=== PATIENT | male | born 1960 | race Caucasian/White ===

== ENCOUNTER → 2017-10-21 00:33 | Outpatient (CLI) | payer BC, SELFPAY ==
--- NOTE | 2017-10-21 08:55 | DI.REPORT_ITS ---
SYMPTOM/DIAGNOSIS: FRACTURE MULTIPLE RIBS, RT S22.41XA PA CHEST, RIGHT RIBS: 10/21 PA chest and 2 views of the right ribs were obtained. There are again noted multiple right lateral rib fractures. No evidence of pneumothorax or significant pleural effusion on frontal view at this time. The heart is not enlarged. The lungs are clear.
== END ==
PROVIDERS: PCP Family Medicine; Visit Provider Family Medicine
DX: S22.41XA Multiple fractures of ribs, right side, initial encounter for closed fracture (principal)
CPT/HCPCS: 71046; 71100

== ENCOUNTER 2019-03-22 10:26 | Emergency (ER) | payer BC, SELFPAY ==
[2019-03-22] VITALS (24 sets, daily range): BP systolic 107–161; BP diastolic 70–92; PULSE 50–72; RESP 14–20; TEMP 36.7; O2SAT 94–97
--- NOTE | 2019-03-22 11:16 | ED.GENADUL_ITS ---
Discharge Plan Disposition Patient Disposition: HOME Condition: Stable Discharge Details Chief Complaint: SOB Clinical Impression: Atrial fibrillation Primary Care Provider: Yasmani Olivares ED Provider: Richie Woodard Home Meds and New Rx's Prescriptions: New apixaban 5 mg tablet 5 mg PO BID Qty: 60 RF: 0 No Action metoprolol succinate [Toprol XL] 50 MG tablet extended release 24 hr 50 mg PO DAILY RF: 0 sennosides [Senokot] 1 TAB tablet 1 tab PO DAILY PRNRF: 0 docusate sodium [Colace] 100 MG capsule 100 mg PO TID PRN PRNQty: 1 RF: 0 ibuprofen 600 MG tablet 600 mg PO Q6H Qty: 30 RF: 0 aspirin [Aspir-81] 81 mg Tablet,Delayed Release (Dr/Ec) 81 mg PO ONCE RF: 0 Discharge Instructions Instructions: Atrial Fibrillation (ED) Additional Instructions: 1. Drink plenty of fluids. 2. Continue all medications as prescribed. 3. Acetaminophen 1000mg every 4 hours (up to 5 time a day) and/or ibuprofen 600mg every 6 hours as needed for fever or pain. 4. Apixaban 5 mg twice a day. 5. Follow-up with your physician for outpatient monitoring. Return to the Emergency Department (ED) if your condition worsens, does not improve as expected, or for ANY other concerns. Specifically, return if you have new or uncontrolled pain, worsening fever, difficulty breathing, vomiting, or are unable to drink fluids. Referrals: [place]IOLOG[place],[facility] [place] - (Discussed case w Dr. Rosalina Oliver who recommended outpatient EP follow up [facility] for antiarrthymic strategy. ) Medical Decision Making 59 gentleman with a past medical history which includes recurrent atrial fibrillation maintained with metoprolol and no anticoagulants. Presented after being in persistent atrial fibrillation for the past 4 days. Spontaneously cardioverted on arrival with resolution of associated left facial tingling/pressure. However, while in the emergency department had resumption of atrial fibrillation. Remained rate controlled and stable with no associated constitutional complaints. Discussed case with EP doll surgeon from [facility], Dr. Oliver. Discharged with a plan for continued metoprolol, initiation of apixaban, a roll icer, and plan for outpatient follow-up at [facility] EP clinic. Discussed plan with patient and spouse. Discharged home with a prescription for apixaban and a plan for outpatient follow-up as discussed. Given usual and customary return instructions at time of discharge. Medical Records Medical records reviewed: Yes I reviewed the patient's medical records. ECG Data Attestation: I personally reviewed and interpreted this ECG (s) as follows: Prior ECG tracings: available for review Interpretation: EKG #1 sinus bradycardia, 50 bpm. EKG #2: Atrial fibrillation 60 bpm HPI 58-year-old gentleman with a past medical history which includes chronic recurrent atrial fibrillation. He has episodes of fever intermittently which lasts for no longer than 1 day. He insists that he is aware when he is in atrial fibrillation or not. Presents with persistent atrial fibrillation since Wednesday (4 days ago) onset was unprovoked and he has been aware of remaining in fibrillation. This morning he had an episode of rapid heart rate with associated left facial tingling/tightness. On arrival here, he is subjectively improved and, on my evaluation has spontaneously converted into NSR with almost immediate resolution of his atypical facial pressure/tingling. He otherwise denies a history of chest pain dyspnea, diaphoresis, presyncope, or any other focal extremity weakness. He does note that when he is in atrial fibrillation he is more limited in terms of his activity and feels more fatigued with exertion. His last cardiology evaluation was years ago and he is chronically on metoprolol for rate control. General Date/Time Provider Initiated Documentation: 03/22/19 10:57 . Related Data Home Medications Medication Instructions Recorded Confirmed metoprolol succinate [Toprol XL] 50 mg PO DAILY 08/28/17 03/22/19 sennosides [Senokot] 1 tab PO DAILY PRN 08/28/17 03/22/19 docusate sodium [Colace] 100 mg PO TID PRN PRN #1 bottle 08/30/17 03/22/19 ibuprofen 600 mg PO Q6H #30 tab 08/30/17 03/22/19 apixaban 5 mg PO BID #60 tab 03/22/19 aspirin [Aspir-81] 81 mg PO ONCE 03/22/19 03/22/19 Previous Rx's Medication Instructions Recorded docusate sodium [Colace] 100 mg PO TID PRN PRN #1 bottle 08/30/17 ibuprofen 600 mg PO Q6H #30 tab 08/30/17 apixaban 5 mg PO BID #60 tab 03/22/19 Allergies Allergy/AdvReac Type Severity Reaction Status Date / Time amoxicillin Allergy Unknown Unverified 03/22/19 10:36 Penicillins Allergy Unknown Unverified 03/22/19 10:36 General Stated Complaint: SOB ARIAN: 2 Review of Systems All systems reviewed & are unremarkable except as noted in HPI and below PFSH Social History Smoking/Tobacco Use Status: Current every day Alcohol Intake: current Alcohol Intake frequency: a few times a week Drug use: Never Substance use type: does not use Do you feel safe at home: Yes Do you feel safe in your relationship?: Yes Exam Narrative Exam Narrative: Nursing note and vital signs have been reviewed and noted. GENERAL: alert, active, no acute distress, well -hydrated, well-nourished HEENT: atraumatic/normocephalic, PERRLA, EOMI, conjunctiva clear, external ears/canals normal, nasal mucosa normal NECK: supple, full range of motion, no mass, normal lymphadenopathy, no thyromegaly CARDIOVASCULAR: RRR, no murmurs, nl pulses, no edema PULMONARY: nl effort, no audible wheezing or stridor, nl breath sounds with no focal deficit. no chest wall tenderness ABDOMEN: soft, non-tender, non-distended, no mass, no organomegaly EXTREMITY: normal muscle tone, all joints with FROM, no deformity or tenderness SKIN: no exanthem appreciated NEURO: gross motor exam normal, normal stance and gait PSYCH: alert and oriented, Course Vital Signs Vital signs: Vital Signs Temperature 98.1 F 03/22/19 10:32 Pulse 53 L 03/22/19 10:32 Respiratory Rate 19 03/22/19 10:32 Blood Pressure 153/80 H 03/22/19 10:32 Pulse Oximetry 97 03/22/19 10:32 Temperature 98.1 F 03/22/19 10:32 Temperature Source Temporal Artery Scan 03/22/19 10:32 Pulse 53 L 03/22/19 10:32 Respiratory Rate 19 03/22/19 10:40 Respiratory Effort Non-Labored 03/22/19 10:40 Respiratory Depth Normal 03/22/19 10:40 Respiratory Pattern Normal 03/22/19 10:40 Blood Pressure 153/80 H 03/22/19 10:32 Blood Pressure Position Supine 03/22/19 10:32 Pulse Oximetry 97 03/22/19 10:32 Oxygen Delivery Method Room Air 03/22/19 10:32 Oxygen Flow Rate 0 03/22/19 10:32 Pain Level 3 03/22/19 10:32
--- NOTE | 2019-03-22 17:52 | NUR.NOTE ---
Nursing Note: 1. Referral faxed to PCP for follow up to have a Zio Patch placed per [facility] [place]. 2. Referral (MD note, 2 ekg's) faxed to [facility] cardiology for follow up. Evelyne Lizarraga.
== END 2019-03-22 12:44 | disposition home or self-care (01) ==
PROVIDERS: Emergency Provider Emergency Medicine; PCP Family Medicine
DX: R06.02 Shortness of breath (principal); I48.20 Chronic atrial fibrillation, unspecified; R20.2 Paresthesia of skin
CPT/HCPCS: 36415; 93005; 99284; 93010

== ENCOUNTER 2019-04-26 02:31 | Outpatient (CLI) | payer BC, SELFPAY ==
--- NOTE | 2019-04-26 13:25 | DI.US_ITS ---
APPROVED REPORT EXAM: Comprehensive 2D, Doppler, and color-flow Echocardiogram Patient Location: Out-Patient Branch Sales Manager: Lisbeth Goss RDCS (AE) Rhythm: Bradycardia Indications: atrial fibrillation I48.91 Conclusion Normal left ventricular wall thickness and chamber size. Estimated ejection fraction is 60 to 65%. There are no segmental wall motion abnormalities The left atrium is mildly dilated. The right atrium is top normal in size Right ventricle is normal in size and systolic function. The aortic valve is trileaflet without stenosis or regurgitation Mildly thickened mitral leaflets with mild regurgitation The tricuspid valve is structurally normal. There is trace to mild tricuspid regurgitation The pulmonic valve is not well visualized Estimated right ventricular systolic pressure is 36 mmHg The ascending aorta is mildly dilated measuring 3.7 cm Wall motion Left Ventricle The left ventricle is normal size. The left ventricular systolic function is normal. The left ventric ular ejection fraction is within the normal range. There is normal left ventricular wall thickness. T here is normal LV segmental wall motion. The left ventricular diastolic function is normal. LVEF is e stimated to be 60-65%. Right Ventricle The right ventricle is normal size. The right ventricular systolic function is normal. Atria Left atrium is mildly dilated. The right atrium size is top normal. Aortic Valve The aortic valve is normal in structure. There is no aortic valvular stenosis. No aortic regurgitatio n is present. Mitral Valve Mitral valve leaflets are mildly thickened. Mild mitral regurgitation. Tricuspid Valve The tricuspid valve is normal in structure. Trace to mild tricuspid regurgitation. Pulmonic Valve Pulmonic valve is not well visualized. Great Vessels The aortic root is normal in size. The ascending aorta is mildly dilated. The IVC is dilated. The IVC collapses >50% with inspiration. Pericardium There is no pericardial effusion. 2D Dimensions IVSD d PLAX 1.13 cm M: 0.6-1.2 LV Vol A2C d MOD 76.6 mL LVPW d PLAX 0.98 cm M: 0.6 - 1.2 LV Vol A4C d MOD 122.8 mL LVID d PLAX 4.77 cm M: 4.2 - 5.8 LA vol/ BSA A2C s A-L 38.1 mL/m2 LVDs 2.90 cm M: 2.5 - 4.0 LA vol/ BSA A4C s A-L 36.1 mL/m2 Ao Root d 3.43 cm M: 3.1 - 3.7 LA Vol/ BSA Biplane s A-L 37.9 mL/m2 RVID Base (AP4) 4.23 cm (M/F) 2.5-4.1 LA Area A4C s MOD 20.79 cm2 RA Area A4C 19.20 cm2 LA Area A2C s MOD 21.82 cm2 RA Vol/ BSA A4C s A-L 31.3 mL/m2 LV EF A4C MOD 57.5 % Ao Asc Diam d 3.73 cm M: 2.6 - 3.4 LV EF A2C MOD 62.3 % LV EF Teichholz 69.4 % LV EF Biplane MOD 59.0 % LVEF (Rey's) 58.99 % M: 52 - 72 IVC Diam exp d SLAX 2.54 cm LV Volume 75.18 mL M: 62 - 150 LV Volume Index 39.36 mL/m2 M: 34 - 74 LV Vol Biplane MOD 98.8 mL FS 39.00 % M-Mode TAPSE 1.74 cm (M/F) <1.7 LV Diastology MV E' medial 0.075 (>0.07 m/s) E/A Ratio 1.5 LV E/e MED 12.35 (<14) PV S/D Ratio 1.08 MV E' lateral 0.114 (>0.1 m/s) MV E Vmax 0.93 (0.4-1.3 m/s) LV E/e LAT 8.15 (<14) MV A Vmax 0.60 (0.4-1.3 m/s) MV E/E' medial 12.37 MV E/A Ratio 1.43 MV E/E' lateral 8.18 Aortic Valve LVOT Area 3.94 cm2 AoV Area Vmax 3.01 cm2 LVOT Vmax 1.23 m/s AoV Area/ BSA (Vmax) 1.57 cm2/m2 LVOT Mean Stone. 0.91 m/s JAQUELINE Mean Stone. 3.29 cm2 LVOT Peak Grad 6.0 mmHg JAQUELINE Mean Stone. Index 1.72 cm2/m2 LVOT Mean Grad 3.6 mmHg LVOT VTI 0.293 m LVOT Diam s 2.20 cm (M/F) 1.5-2.5 AoV Vmax 1.61 (0.5-1.3 m/s) Velocity Ratio 0.76 AoV Mean Stone. 1.09 m/s AoV Peak Grad 10.3 mmHg LVOT SV 115.51 mL AoV Mean Grad 5.2 (<5 mmHg) AoV VTI 0.342 (0.18-0.25 m) AoV Area VTI 3.38 (2.5-4.5 cm2) AoV Area/ BSA (VTI) 1.76 cm/m2 Mitral Valve MV DT 214 (160-240 msec) MR Vmax 5.43 m/s MV PHT 62 msec MR VTI 2.128 m MV Area PHT 3.55 cm2 MR Peak Grad 117.8 mmHg MV VTI 0.211 m MR Mean Grad 87.7 mmHg MV VTI Annulus 0.211 m MV Regurg Vol 42.64 mL MV Diam AP 3.09 cm MV RF 26.96 % MV SV 158.16 mL MR VC 0.31 (0-0.3 cm) Pulm Vein s 0.45 m/s RUPV S Vmax 0.45 m/s Pulm Vein d 0.42 m/s RUPV D Vmax 0.42 m/s Pulm Vein a 0.20 m/s RUPV A Vmax 0.20 m/s Pulmonary Valve PV Vmax 0.93 (0.5-1.5 m/s) RVOT Peak Gr. 2.31 mmHg PV Peak Grad 3.5 mmHg RVOT Mean Gr. 1.45 mmHg PV Mean Grad 2.2 mmHg RVOT VTI 0.200 m PV VTI 0.198 m RVOT Vmax 0.76 m/s Tricuspid Valve TR Peak Grad 31.7 mmHg TR Vmax 2.82 m/s RA Pressure 8.00 mmHg RVSP (TR) 39.8 mmHg
== END 2019-04-26 02:51 ==
PROVIDERS: PCP Family Medicine; Visit Provider Internal Medicine Cardiovascular Disease
DX: I48.91 Unspecified atrial fibrillation (principal); I34.0 Nonrheumatic mitral (valve) insufficiency
CPT/HCPCS: 93306

== ENCOUNTER 2019-04-26 03:42 | Outpatient (CLI) | payer BC, SELFPAY | END 2019-04-26 04:02 | PROVIDERS: PCP Family Medicine; Visit Provider Internal Medicine Cardiovascular Disease | DX: I49.9 Cardiac arrhythmia, unspecified (principal) | CPT/HCPCS: 93005; 93010 ==

== ENCOUNTER 2020-01-10 10:50 | Outpatient (CLI) | payer BC, SELFPAY ==
--- NOTE | 2020-01-10 10:45 | RT.EKG_ITS ---
APPROVED REPORT Exam: Resting ECG Patient Location: O HR:71 bpm ECG Measurements Heart Rate 71 AXIS TX 150 P -15 QRSd 88 QRS 2 QT 396 T -19 QTc 432 Conclusion Sinus rhythm...normal P axis, V-rate 60- 99 Nonspecific T abnormalities, inferior leads...T <-0.10mV, II III aVF
== END 2020-01-10 11:10 ==
PROVIDERS: PCP Family Medicine; Visit Provider Internal Medicine Cardiovascular Disease
DX: I48.91 Unspecified atrial fibrillation (principal)
CPT/HCPCS: 93005; 93010

== ENCOUNTER 2020-04-19 09:35 | Outpatient (REF) | payer BC, SELFPAY ==
[2020-04-19 12:44] LABS: C Diff PCR Negative (Negative)
[2020-04-27 19:28] LABS: Lactoferrin, Qt, Stool <30.0 mcg/mL
== END 2020-04-19 09:36 | disposition home or self-care (01) ==
LOC: LBN 09:35
PROVIDERS: PCP Family Medicine; Visit Provider Internal Medicine Gastroenterology
DX: K52.9 Noninfective gastroenteritis and colitis, unspecified (principal); K92.2 Gastrointestinal hemorrhage, unspecified
CPT/HCPCS: 83631; 87493; 87324

== ENCOUNTER 2020-05-20 12:24 | Outpatient (REF) | payer BC, SELFPAY | END 2020-05-20 12:25 | disposition home or self-care (01) | LOC: LBN 12:24 | PROVIDERS: PCP Family Medicine; Referring Provider Internal Medicine Gastroenterology; Visit Provider Internal Medicine Gastroenterology | DX: K52.9 Noninfective gastroenteritis and colitis, unspecified (principal) | CPT/HCPCS: 87329; 87177 ==

== ENCOUNTER 2020-11-06 08:30 | Outpatient (CLI) | payer BC, SELFPAY ==
--- NOTE | 2020-11-06 08:30 | RT.EKG_ITS ---
APPROVED REPORT Exam: Resting ECG Reason for Exam: atrial fib Patient Location: O HR:66 bpm ECG Measurements Heart Rate 66 AXIS WA 125 P -1 QRSd 86 QRS 9 QT 408 T 4 QTc 428 Conclusion Sinus rhythm...normal P axis, V-rate 50- 99
== END 2020-11-06 08:31 | disposition home or self-care (01) ==
LOC: DI.CARD 08:34
PROVIDERS: PCP Family Medicine; Visit Provider Internal Medicine Cardiovascular Disease
DX: I48.91 Unspecified atrial fibrillation (principal)
CPT/HCPCS: 93010

== ENCOUNTER 2021-11-12 09:12 | Outpatient (CLI) | payer BC, SELFPAY ==
--- NOTE | 2021-11-12 09:00 | RT.EKG_ITS ---
APPROVED REPORT Exam: Resting ECG Reason for Exam: palpitations, history of atrial fibrillation Patient Location: O HR:66 bpm ECG Measurements Heart Rate 66 AXIS AL 123 P -3 QRSd 87 QRS 10 QT 410 T 4 QTc 430 Conclusion Sinus rhythm...normal P axis, V-rate 50- 99 Normal Electrocardiogram
== END 2021-11-12 09:13 | disposition home or self-care (01) ==
LOC: DI.CARD 09:14
PROVIDERS: PCP Family Medicine; Visit Provider Internal Medicine Cardiovascular Disease
DX: I48.91 Unspecified atrial fibrillation (principal); R00.2 Palpitations
CPT/HCPCS: 93010

== ENCOUNTER 2022-11-21 08:45 | Inpatient (IN) | payer BC, SELFPAY ==
[2022-11-21] VITALS (65 sets, daily range): BP systolic 131–158; BP diastolic 59–96; PULSE 55–74; RESP 12–30; TEMP 36.8–36.9; O2SAT 94–99
--- OUTSIDE RECORDS SUMMARY | 2022-11-21 08:51 | XMS_ITS | Continuity of Care Document ---
Author Name Unknown Organization [facility] Address [address] [place] [address] Care Team Providers Care Dermatology Nurse Practitioner Name Role Phone Nafisa Lopez Primary Care Physician Encounter [facility] Date(s): 08/06/22 - 08/06/[address] [phone] Encounter Diagnosis Hypertensive disorder(Discharge Diagnosis) - 08/06/22 Discharge Disposition: Home or Self Care Attending Physician: Nafisa Lopez MD Admitting Physician: Nafisa Lopez MD Referring Physician: Nafisa Lopez MD Allergies, Adverse Reactions, Alerts Substance Reaction Severity Status amoxicillin Unknown Active penicillins Rash Itching Unknown Active Dust 1 Sneezing Mild Active 1Redwood cedar dust Assessment and Plan Future Appointments Immunizations Given and Recorded Vaccine Date Status Refusal Reason tetanus-diphth toxoids (Td) adult/adol 1 11/04/20 Recorded SARS-CoV-2 (COVID-19) mRNA BNT-162b2 vax 10/18/20 Recorded SARS-CoV-2 (COVID-19) mRNA BNT-162b2 vax 09/27/20 Recorded zoster vaccine, inactivated 02/17/19 Recorded zoster vaccine, inactivated 11/18/18 Recorded tetanus/diphth/pertuss (Tdap) adult/adol 09/14/08 Recorded Not Given Vaccine Date Status Refusal Reason zoster vaccine, inactivated 2 10/29/21 Not Given Patient Refuses influenza, unspecified formulation 3 10/29/21 Not Given Patient Refuses Td(adult) unspecified formulation 4 10/29/21 Not G iven Patient Refuses 1Result Comment: verified with DG 2Result Comment: zoster recombinant Not available Last Modified by Yasmani Olivares, Answering Service Agent 10-31-2018, 08:49 3Result Comment: influenza, injectable, quadrivalent, preservative free Patient Declined Last Modified by Zari Buckner, Answering Service Agent 01-25-2020, 15:56 4Result Comment: Td (adult), adsorbed Not available Last Modified by Yasmani Olivares, Answering Service Agent 10-31-2018, 08:49 Medications Eliquis 5 mg oral tablet 5 mg = 1 tab, Oral, BID, for 90 days, # 180 tab, 1 Refill(s), Pharmacy: [id number] Start Date: 05/15/22 Status: Ordered lisinopril 5 mg oral tablet 5 mg = 1 tab, Oral, Daily, pt. needs f/u appt. before next refill due., # 90 tab, 0 Refill(s), Pharmacy: [id number] Start Date: 06/18/22 Status: Ordered metoprolol succinate 25 mg oral tablet, extended release 25 mg = 1 tab, Oral, Daily, Take along with 50mg tablet for a total of 75mg daily, # 90 tab, 2 Refill(s), Pharmacy: [id number] Start Date: 08/06/22 Status: Ordered metoprolol succinate 50 mg oral capsule, extended release 50 mg = 1 cap, Oral, Daily, Take along with 25mg tablet for total of 75mg daily, # 90 cap, 2 Refill(s), Pharmacy: [place] [id number] Start Date: 08/06/22 Status: Ordered pantoprazole 40 mg oral delayed release tablet 40 mg = 1 tab, Oral, Daily, # 90 tab, 0 Refill(s) Start Date: 01/05/22 Status: Ordered Problem List Condition Confirmation Course Effective Dates Status H ealth Status Informant Asthma Confirmed Active Atherosclerosis of aorta Confirmed Active Atrial fibrillation Confirmed Active Cervical radiculopathy Confirmed Active Chronic diarrhea Confirmed 10/28/17 Active Fracture of multiple ribs Confirmed 09/10/17 Active History of malignant melanoma of the skin Confirmed Active Hyperglycemia Confirmed Active Hypertensive disorder Confirmed Active Injury of quadriceps muscle Confirmed 11/04/20 Active Internal derangement of right knee Confirmed Active Lateral epicondylitis of left humerus Confirmed 11/04/20 Active Malignant melanoma Confirmed Active Nicotine dependence Confirmed Active Non-traumatic rupture of tendon of left shoulder Confirmed Active Obstructive sleep apnea syndrome Confirmed Active Pain of left shoulder joint Confirmed Active Encounter for preventative adult health care examination Confirmed Active Sleep disorder Confirmed Active Strain of hamstring muscle Confirmed 11/04/20 Active Traumatic hematoma Confirmed 09/10/17 Active Procedures Procedure Date Related Diagnosis Body Site Status Colonoscopy 1 04/21/20 Completed Endoscopy 2 04/21/20 Completed Percutaneous transluminal ab lation of atrial wall for atrial flutter 3 12/07/19 Completed Colonoscopy 4 11/13/[address] [facility] [address] [facility] [place] 4normal good for 10 years 06/20/20 pt. had a colonoscopy at [facility], by Dr. Shannon Results Laboratory List Name Date Comprehensive Metabolic Panel (CMP) Hemoglobin A1c 08/06/22 Lipid Panel 08/06/22 Most recent to oldest [Reference Range]: 1 BUN [7-18 mg/dL] 14 mg/dL (08/06/22 9:23 AM) Cholesterol Total [50-200 mg/dL] 227 mg/ dL *HI* (08/06/22 9:23 AM) LDL [0-130 mg/dL] 150 mg/dL *HI* (08/06/22 9:23 AM) Glucose Level [74-106 mg/dL] 106 mg/dL (08/06/22 9:23 AM) Potassium Level [3.5-5.1 mmol/L] 4.2 mmo l/L (08/06/22 9:23 AM) HDL [40-60 mg/dL] 63 mg/dL *HI* (08/06/22 9:23 AM) AST [15-37 unit/L] 17 unit/L (08/06/22 9:23 AM) ALT [16-63 unit/L] 28 unit/L (08/06/22 9:23 AM) Sodium Level [136-145 mmol/L] 138 mmol/L (08/06/22 9:23 AM) Triglycerides [0-150 mg/dL] 68 mg/dL (08/06/22 9:23 AM) Calcium Level [8.5-10.1 mg/dL] 8.8 mg/dL (08/06/22 9:23 AM) Albumin Level [3.4-5.0 g/dL] 4.2 g/dL (08/06/22 9:23 AM) Protein Total [6.4-8.2 g/dL] 7.2 g/dL (08/06/22 9:23 AM) Bilirubin Total [0.2-1.0 mg/dL] 0.8 mg/d L (08/06/22 9:23 AM) Alk Phos [46-146 unit/L] 60 unit/L (08/06/22 9:23 AM) CO2 [21-32 mmol/L] 29 mmol/L (08/06/22 9:23 AM) eGFR Non-AA [>=60] 85 (08/06/22 9:23 AM) eGFR AA [>=60] 85 (08/06/22 9:23 AM) Hemoglobin A1c [4.0-6.0 %] 5.4 % (08/06/22 9:23 AM) Chloride Level [98-107 mmol/L] 102 mmol/ L (08/06/22 9:23 AM) Creatinine Level [0.70-1.30 mg/dL] 1.01 mg/dL (08/06/22 9:23 AM) Social History Social History Type Response Tobacco Current everyday tob acco user Tobacco Use:. 1/4 PPD per day. 40 year(s). Sex Male Patient Care team information Care Team Personnel Name: Nafisa Lopez MD Position: Physician Member Role: Primary Care Physician Address: Address: [address] [place] [id number]
--- NOTE | 2022-11-21 09:00 | DI.CT_ITS ---
Exam(s) CT NECK W EXAM: CT NECK W CLINICAL HISTORY: right sided pain and difficulty swallowing. TECHNIQUE: Imaging Protocol: Axial computed tomography images with coronal and sagittal reformatted images were created and reviewed CONTRAST MATERIAL: Intravenous: Omnipaque 350 Contrast volume:80 ml contrast COMPARISON: CT HEAD AND CSPINE W/O CONTRAST from 08/28/2017 FINDINGS: Parotids/submandibular/thyroid gland: Normal. Lymphadenopathy: There are scattered lymph nodes seen along the level one to level three all measuri ng less than 8 mm in short axis diameter which are physiologic in nature. Carotids/Jugular: Plaque in the proximal left internal carotid artery causing moderate stenosis, esau roximately 60 percent. No significant right-sided plaque. Vertebral arteries unremarkable. Soft tissues: Bilateral tonsillar calcifications. Enlargement of right palatine tonsil with 2 periph erally enhancing collections consistent with abscesses, measuring 10 and 12 millimeters in greatest d imension. There is extension inferiorly of abnormal fluid and soft tissue thickening in the retropha ryngeal space. Additional retropharyngeal abscess measuring 0.5 by 2 x 3 cm. There is fluid extendi ng inferiorly in the prevertebral soft tissues down to the level of C6. The floor the mouth is unremarkable. The epiglottis and vocal cords are within normal limits. Lungs: Images through both lung apices are unremarkable. Bones: Mild degenerative changes of the cervical spine. Visualized portions of the brain and orbits: Unremarkable. Sinuses and mastoids: Clear where visualized. IMPRESSION: Right-sided tonsillar abscesses. Retropharyngeal abscess. The fluid extending in the prevertebral s oft tissues down to the level of C6. Mixed plaque in the proximal left internal carotid cause moderate stenosis of approximately 60 percen t. RADIATION DOSE DELIVERED: Total DLP DATA REPOSITORY: All CT scans at this facility are submitted to the National Radiology Data Registry (NRDR) Dose Index Registry (DIR) with the [employer] (A[employer]). RADIATION OPTIMIZATION: All CT scans at this facility use at least one of these dose optimization te chniques: automated exposure control; mA and/or kV adjustment per patient size (includes targeted exa ms where dose is matched to clinical indication); or iterative reconstruction.
--- NOTE | 2022-11-21 09:17 | W.ED.GENAD ---
Discharge Plan Disposition Patient Disposition: Admit to [facility] Discharge Details Clinical Impression: Abscess of tonsil, Adult supraglottitis Admit Date/Time: 11/21/22 13:20 Admit Provider: Roselyn Landa Attending Provider: Roselyn Landa Primary Care Provider: Yasmani Olivares ED Provider: Rell Miner Discharge Data Discharge Date/Time-TO BE ENTERED AT DEPARTURE: 11/21/22 14:14 Medical Decision Making Patient presenting to the emergency department for chief complaint of sore throat. Patient reports that this started 4 days ago and has progressively gotten worse. Mostly right-sided pain and discomfort within the last 24 hours the left side of his throat has become painful. Patient denies fever but does state some chills, states mild right ear pain and dental pain along with the throat pain. does state that noted patient having more of a hoarse voice today. Patient did take acetaminophen prior to arrival and yesterday evening took [id number] cough and cold medication. Patient denies any sick contacts. Patient has past medical history of hypertension, atrial fibrillation, and is on anticoagulation. Physical exam shows bilateral anterior cervical lymphadenopathy, due to anatomy difficult to visualize posterior pharynx but from what I can visualize the right tonsil is erythematous and larger than left. Patient has no stridor, no trismus, no drooling. Differential diagnosis to include strep pharyngitis, mononucleosis, peritonsillar abscess, viral illness. We will check patient's labs and perform viral and strep swab along with CT imaging of the neck. Pending results will give patient IV clindamycin and Decadron. Review of labs show a marked leukocytosis, CMP shows slightly elevated bilirubin otherwise low AST and normal otherwise LFTs all other values within normal range. Patient is negative for strep, COVID flu, and mono. CT imaging shows multiple abscesses per V rad read. Given this concern will speak with [facility]. Patient's airway does remain intact. Patient reports he did take his blood thinner at this morning but has not eaten since yesterday afternoon. Spoke with Dr. Garland with ENT at [facility]. He reviewed imaging and states that he does not feel that there are as many abscesses as noted by V rad and that both him and neuroradiology feel this is most likely edema. They stated no surgical intervention needed at this time but they recommended a medicine admit with continued monitoring, continued clindamycin, and continued Decadron. They did request repeat imaging if patient has any significant worsening of condition along with reaching back out to their service at that time. Discussed this with Dr. Landa with hospital medicine who agreed to admit patient for monitoring, IV antibiotics, and steroids. HPI General Mode of arrival: ambulatory. Date/Time Provider Initiated Documentation: 11/21/22 08:46. Limitations to Documentation: no limitations. Information obtained by: patient, family and RN notes reviewed. History of Present Illness 62 year old M presents to the emergency department with the chief complaint of Sore throat, described as mild and moderate, Quality is described as aching, and is localized to the neck. Patient reports no radiation. Patient started experiencing this day(s) (4) and it has been constant. No relieving factors improve symptom(s), No exacerbating factors reported . Patient did receive the following treatments prior to arrival, other (Acetaminophen) Related Data Home Medications Medication Instructions Recorded Confirmed ibuprofen 600 mg tablet 600 mg PO Q6H #30 tabs 08/30/17 11/21/22 apixaban 5 mg tablet 5 mg PO BID Atrial fibrillation 03/22/19 11/21/22 #60 tabs pantoprazole 40 mg tablet,delayed 40 mg PO DAILY 01/10/20 11/21/22 release lisinopril 5 mg tablet 5 mg PO DAILY 11/12/21 11/21/22 atorvastatin 40 mg tablet (Lipitor) 40 mg PO DAILY 11/11/22 11/21/22 metoprolol succinate 50 mg 75 mg PO DAILY 11/11/22 11/21/22 tablet,extended release 24 hr (Toprol XL) Previous Rx's Medication Instructions Recorded ibuprofen 600 mg tablet 600 mg PO Q6H #30 tabs 08/30/17 apixaban 5 mg tablet 5 mg PO BID Atrial fibrillation 03/22/19 #60 tabs Allergies Allergy/AdvReac Type Severity Reaction Status Date / Time amoxicillin Allergy Unknown Verified 11/21/22 08:54 Penicillins Allergy Unknown Verified 11/21/22 08:54 General Stated Complaint: Sorethroat ARIAN: 4 Review of Systems Constitutional Constitutional: Reports chills, Denies fever(s), Denies headache(s) and Denies malaise ENT Ears, Nose, Mouth, and Throat: Reports as per HPI, Reports otalgia, Denies facial pain, Denies headache(s), Denies nasal congestion, Denies nasal discharge, Reports neck pain, Reports odynophagia, Reports sore throat, Reports throat swelling and Denies tongue swelling Cardiovascular Cardiovascular: Denies chest pain and Denies dyspnea Respiratory Respiratory: Denies cough and Denies dyspnea Gastrointestinal Gastrointestinal: Denies nausea, Reports odynophagia and Denies vomiting Musculoskeletal Musculoskeletal: Reports neck pain Integumentary/Breasts Skin/Breast: Reports rash Neurologic Neurologic: Denies headache(s) Allergic/Immunologic Allergic/Immunologic: Reports throat swelling and Denies tongue swelling PFSH All Active Problems (Updated 11/21/22 @ 14:29 by Roselyn Landa MD) DVT prophylaxis (Acute) Tonsillitis (Acute) Retropharyngeal abscess (Acute) Peritonsillar abscess (Acute) Abscess of tonsil (Acute) Adult supraglottitis (Acute) Traumatic hemo-pneumothorax (Acute) Hypertension (Acute) Discharge planning issues (Acute) Atrial fibrillation (Acute) Surgical History (Updated 11/21/22 @ 15:05 by Roselyn Landa MD) S/P ablation of atrial fibrillation S/P right knee arthroscopy S/P skin cancer resection Melanoma x 3 Family History (Updated 11/21/22 @ 15:06 by Roselyn Landa MD) Father Stroke Cancer prostate Brother Diabetes Hypertension Brother Cancer bone cancer Social History (Updated 11/21/22 @ 15:07 by Roselyn Landa MD) Smoking/Tobacco Use Status: Current every day Tobacco Type: cigarettes Smoking packs per day: 0.5 Smoking cigarettes per day: 10.0 Tobacco: How many years used: 30 Quit status: has quit before Counseling given: provider counseling, support medications and counseling >3 minutes Smoking risk assessment performed?: Yes Alcohol Intake: current Alcohol Intake frequency: 0-2 drinks per day Alcohol type: hard liquor Drug use: Never Substance use type: does not use Household members: significant other Housing: house 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 Exam Const General: cooperative, healthy appearing, comfortable, no acute distress and not ill appearing Orientation: alert, awake and oriented x3 [facility] Head: normal to inspection and normocephalic Ears: hearing grossly normal bilaterally, external ears normal, TM's normal bilaterally and mastoids normal General nose exam: external nose normal and nares normal Face and sinus: normal facial exam Mouth: oral mucosae normal, lip normal, tongue normal, no audible dysphonia, no drooling and no trismus Teeth and gingiva: dentition normal Throat: uvula midline, abnormal tonsil on the right erythema and hypertrophy and other (Difficult visualization of posterior pharynx) Neck Neck: normal visual inspection, full ROM and no meningeal signs Resp Effort & Inspection: normal respiratory effort, able to speak in complete sentences and no stridor Auscultation: clear to auscultation bilaterally Cardio Rate: regular rate Rhythm: regular rhythm Heart Sounds: S1 normal and S2 normal Skin General skin exam: no rashes or lesions noted Course Vital Signs Vital signs: Vital Signs Temperature 36.9 C 11/21/22 08:50 Pulse 73 11/21/22 08:50 Respiratory Rate 15 11/21/22 08:50 Blood Pressure 156/82 H 11/21/22 08:50 Pulse Oximetry 98 11/21/22 08:50 Temperature 36.9 C 11/21/22 08:50 Temperature Source Oral 11/21/22 08:50 Pulse 73 11/21/22 08:50 Respiratory Rate 15 11/21/22 08:50 Respiratory Effort Normal 11/21/22 08:53 Blood Pressure 156/82 H 11/21/22 08:50 Blood Pressure Position Sitting 11/21/22 08:50 Pulse Oximetry 98 11/21/22 08:50 Oxygen Delivery Method Room Air 11/21/22 08:50 Oxygen Flow Rate 0 11/21/22 08:50 Pain Level 8 11/21/22 08:50 PAWSS Have you Been Recently Intoxicated or Drunk Within the Last 30 days?: No Have you Ever Experienced Previous Episodes of Alcohol Withdrawal?: No Have you ever Experienced Withdrawal Seizures?: No Have you ever Experienced Delirium Tremens(DT)s?: No Have you ever undergone Alcohol Rehabilitation Treatment (i.e, inpt ot outpatient treatment programs)?: No Have you ever Experienced Blackouts?: No Have you ever Combined Alcohol with other Downers within the last 90 days?: No Have you ever Combined Alcohol with any other Substance of Abuse during the last 90 days?: No Result: 0
[2022-11-21 09:33] LABS: Abs Immature Grans 0.03 10^3/uL (0.0-0.06); Absolute Basophil Count 0.03 10^3/uL (0.0-0.2); Absolute Eosinophil Count 0.09 10^3/uL (0.0-0.7); Absolute Monocyte Count 1.35 10^3/uL (0.1-0.8); Absolute Neutrophil Count 10.13 10^3/uL (1.2-6.7); Basophils % 0.2; Eosinophils % 0.7; HCT 39.5 % (40.0-50.0); HGB 14.1 g/dL (13.5-17.5); Immature Grans % 0.2; Lymphocytes % 13.9; MCH 33.8 pg (27.0-33.0); MCHC 35.7 % (32.0-36.0); MCV 95 fL (80-95); MPV 11.2 fL (8.0-11.0); Platelet Count 143 10^3/uL (130-400); RBC 4.17 10^6/uL (4.36-5.78); RDW 12.8 % (11.8-14.1); RDW-SD 44.8 fL
[2022-11-21 09:39] LABS: Absolute Lymphocyte Count 1.88 10^3/uL (1.2-3.4)
[2022-11-21] MEDS: Dexamethasone 10 MG/ML VIAL IVP ×3 (09:39→22:03)
[2022-11-21] MEDS: Normal Saline 1,000 ML 1000 ML IV (09:39)
[2022-11-21] MEDS: MORPHine 10 MG/ML VIAL 2 MG IVP (09:41)
[2022-11-21] MEDS: CLINDAMYCIN 900 MG/50 ML BAG 100 MG IVPB (09:44)
[2022-11-21 09:45] LABS: ALT 24 U/L (16-63); AST 13 U/L (15-37); Albumin 3.6 g/dL (3.4-5.0); Alkaline Phosphatase 74 U/L (46-116); Anion Gap 9.2 mmol/L (3-11); BUN 12 mg/dL (7-18); Bilirubin, Total 1.3 mg/dL (0.2-1.0); CO2 27.8 mmol/L (21.0-32.0); CREATININE 0.9 mg/dL (0.70-1.30); Calcium 8.8 mg/dL (8.5-10.1); Chloride 102 mmol/L (98-107); Estimated GFR 97.78 (mL/min/1.73m2); Glucose 107 mg/dL (74-106); Potassium 3.5 mmol/L (3.5-5.1); Sodium 139 mmol/L (136-145); Total Protein 6.7 g/dL (6.4-8.2)
[2022-11-21 09:48] LABS: Mono Screening Negative (Negative)
[2022-11-21] MEDS: Normal Saline Flush 10 ML SYR IVP ×3 (10:47→22:05)
[2022-11-21] MEDS: Normal Saline - Diluent 50 ML VIAL IJ (10:47)
[2022-11-21] MEDS: Omnipaque 350 MG/ML 100 ML BTL IJ (10:47)
--- NOTE | 2022-11-21 11:39 | DI.VRAD_ITS ---
Addendum created by Richie Carlson MD on 11/21/2022 11:43:36 AM EDT: THIS REPORT CONTAINS FINDINGS THAT MAY BE CRITICAL TO PATIENT CARE. The findings were verbally communicated by me to ZEE BARRAZA via telephone conference at 11:43 AM EDT on 11/21/2022. The findings were acknowledged and understood. Initial report created on 11/21/2022 11:38:45 AM EDT: PROCEDURE INFORMATION: Exam: CT Neck With Contrast Exam date and time: 11/21/2022 10:46 AM Age: 62 years old Clinical indication: Other: Right sided pain and difficulty swallowing TECHNIQUE: Imaging protocol: Computed tomography of the neck with contrast. Contrast material: OMNIPAQUE 350; Contrast volume: 80 ml; Contrast route: INTRAVENOUS (IV); COMPARISON: CT HEAD AND CSPINE W/O CONTRAST 08/28/2017 10:05 AM FINDINGS: Pharynx: Enlarged right palatine tonsil, most compatible with tonsillitis. 6 mm and 7 mm fluid collection within the right palatine tonsil, likely abscesses. Larynx: Unremarkable. Epiglottis is normal. Prevertebral and retropharyngeal spaces: 19 x 5 mm irregular fluid collection within the retropharyngeal space (series 3, image 53), likely abscess. Salivary glands: Normal. Glands are normal in size. Thyroid: Normal. No enlarged or calcified nodules. Lymph nodes: Unremarkable. No lymphadenopathy. Trachea: Visualized trachea is unremarkable. Lungs: Unremarkable as visualized. Bones/joints: Abnormal fluid attenuation material within the prevertebral space from C3-C6, likely effusion or abscess. Vasculature: Mixed atherosclerotic plaque within the proximal left ICA, causing approximately 60% luminal narrowing (series 6, image 225). Soft tissues: Unremarkable. No significant soft tissue swelling. IMPRESSION: 1. Right tonsillitis, with para tonsillar, retropharyngeal, and prevertebral abscesses. 2. Mixed atherosclerotic plaque within the proximal left ICA, causing approximately 60% luminal narrowing (series 6, image 225). Dictated and Authenticated by: Richie Carlson MD. Ordering:CORONA Zacarias MD
[2022-11-21 13:42] LABS: Lab Add On Test DONE
[2022-11-21 13:56] LABS: C-Reactive Protein 11.77 mg/dL (0.0-0.3)
[2022-11-21 14:13] LABS: Procalcitonin < 0.1 ng/mL
--- NOTE | 2022-11-21 14:23 | W.PM.HP.N ---
Date of service: 11/21/22 Time of Service: 14:23 Assessment and Plan Assessment and plan (1) Peritonsillar abscess: Status: Acute Assessment and plan: Admit to the ICU for an airway watch. Treat with IV clindamycin + dexamethasone. IVF. Hold anticoagulation. Call ENT back should he clinically worsen. Await blood cultures. Clear liquids only. I did discuss with ER that we might have to use their services for an emergent tracheostomy should he clinically worsen rapidly. (2) Retropharyngeal abscess: Status: Acute Assessment and plan: As above (3) Tonsillitis: Status: Acute Assessment and plan: As above (4) Atrial fibrillation: Status: Acute Assessment and plan: Continue metoprolol. Hold anticoagulation in light of a possibly needed surgical intervention. (5) Discharge planning issues: Status: Acute Assessment and plan: Full code Total Critical Care Time 45 minutes. (6) DVT prophylaxis: Status: Acute Assessment and plan: SCDs while apixaban is on hold History of Present Illness History of Present Illness Chief Complaint: sore throat, changes in voice Narrative: Mr Hdz is a 62 year old male with PMHx of Afib on anticoagulation, HTN, hyperlipidemia, GERD, who presented to [facility] with 4 days of a sore throat, but who woke up this morning with changes in his voice, as noted by his . He has not had difficulty swallowing liquids, but has not been able to/has not eaten solids since yesterday, is not short of breath currently, but feels SOB when lies flat, is not drooling. Denies fevers, endorses chills and nightsweats last night. In the ED, his airway was evaluated and the visible portion appeared patent. Rapid strep test was negative; strep culture is pending. Monospot was negative. COVID-[address] of the neck revealed R-sided tonsillar and retropharyngeal abscesses with fluid extending into paravertebral soft tissues down to the level of C6. The images were evaluated by [facility] IR, who both felt that there would not need to be an immediate intervention or, likely, any intervention at all other than medical therapy. The patient was recommended to be treated with IV clindamycin and dexamethasone with instructions to call back should the patient's condition worsen. Admission to the hospitalist service was requested. The patient is getting admitted to the ICU. Review of Systems All systems reviewed & are unremarkable except as noted in HPI and below PFSH All Active Problems (Updated 11/21/22 @ 14:29 by Roselyn Landa MD) DVT prophylaxis (Acute) Tonsillitis (Acute) Retropharyngeal abscess (Acute) Peritonsillar abscess (Acute) Abscess of tonsil (Acute) Adult supraglottitis (Acute) Traumatic hemo-pneumothorax (Acute) Hypertension (Acute) Discharge planning issues (Acute) Atrial fibrillation (Acute) Surgical History (Updated 11/21/22 @ 15:05 by Roselyn Landa MD) S/P ablation of atrial fibrillation S/P right knee arthroscopy S/P skin cancer resection Melanoma x 3 Family History (Updated 11/21/22 @ 15:06 by Roselyn Landa MD) Father Stroke Cancer prostate Brother Diabetes Hypertension Brother Cancer bone cancer Social History (Updated 11/21/22 @ 15:07 by Roselyn Landa MD) Smoking/Tobacco Use Status: Current every day Tobacco Type: cigarettes Smoking packs per day: 0.5 Smoking cigarettes per day: 10.0 Tobacco: How many years used: 30 Quit status: has quit before Counseling given: provider counseling, support medications and counseling >3 minutes Smoking risk assessment performed?: Yes Alcohol Intake: current Alcohol Intake frequency: 0-2 drinks per day Alcohol type: hard liquor Drug use: Never Substance use type: does not use Household members: significant other 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 Do you think of yourself as: straight/heterosexual Current gender identity: male Do you feel safe at home: Yes Do you feel safe in your relationship?: Yes Meds Allergies and Home Medications Allergies Allergy/AdvReac Type Severity Reaction Status Date / Time amoxicillin Allergy Unknown Verified 11/21/22 08:54 Penicillins Allergy Unknown Verified 11/21/22 08:54 Home Medications Medication Instructions Recorded Confirmed Type ibuprofen 600 mg tablet 600 mg PO Q6H #30 tabs 08/30/17 11/21/22 Rx apixaban 5 mg tablet 5 mg PO BID Atrial fibrillation 03/22/19 11/21/22 Rx #60 tabs pantoprazole 40 mg tablet,delayed 40 mg PO DAILY 01/10/20 11/21/22 History release lisinopril 5 mg tablet 5 mg PO DAILY 11/12/21 11/21/22 History atorvastatin 40 mg tablet (Lipitor) 40 mg PO DAILY 11/11/22 11/21/22 History metoprolol succinate 50 mg 75 mg PO DAILY 11/11/22 11/21/22 History tablet,extended release 24 hr (Toprol XL) Exam Narrative Exam Narrative: General: Pleasant middle-aged male who is A&Ox3, appears uncomfortable, sitting up in bed at about 45 degree angle Neurological: A&Ox3, no focal deficits Psychiatric: Appropriate speech pattern/content Skin: Visible skin intact HEENT: Atraumatic, normocephalic, EOMI, MMM, no visible pharyngeal erythema, tongue very minimally swollen (can see indentations of teeth), not obstructing airway, Mallampati IV, not drooling, no strider, TTP R neck/anterior neck, no palpable lymphadenopathy or goiter, no JVD Cardiovascular: RRR, no m/r/g Lungs: CTAB Gastrointestinal: soft, nontender, nondistended Genitourinary: deferred Extremities: no edema BLEs, 2+ pedal pulses B, no c/c Results Imaging Imaging Studies: CT neck w/ contrast: Right-sided tonsillar abscesses.? Retropharyngeal abscess.? The fluid extending in the prevertebral soft tissues down to the level of C6. Mixed plaque in the proximal left internal carotid cause moderate stenosis of approximately 60 percent.? Labs 11/21/22 09:22 11/21/22 09:22 Labs: Laboratory Results - last 24 hr 11/21/22 11/21/22 11/21/22 09:20 09:20 09:22 WBC RBC Hgb Hct MCV MCH MCHC RDW Plt Count MPV Immature Gran % Neutrophils % Lymphocytes % Monocytes % Eosinophils % Basophils % Nucleated RBC % Absolute Neutrophils Absolute Lymphocytes Absolute Monocytes Absolute Eosinophils Absolute Basophils Sodium 139 Potassium 3.5 Chloride 102 Carbon Dioxide 27.8 Anion Gap 9.2 BUN 12 Creatinine 0.9 Est GFR (CKD-EPI 2020) 97.78 Glucose 107 H Calcium 8.8 Total Bilirubin 1.3 H AST 13 L ALT 24 Alkaline Phosphatase 74 C-Reactive Protein 11.77 H Total Protein 6.7 Albumin 3.6 Procalcitonin < 0.1 Monoscreen Add-On Test Request 11/21/22 11/21/2211/21/23 09:22 09:22 13:18 WBC 13.50 H RBC 4.17 L Hgb 14.1 Hct 39.5 L MCV 95 MCH 33.8 H MCHC 35.7 RDW 12.8 Plt Count 143 MPV 11.2 H Immature Gran % 0.2 Neutrophils % 75.0 Lymphocytes % 13.9 Monocytes % 10.0 Eosinophils % 0.7 Basophils % 0.2 Nucleated RBC % 0.0 Absolute Neutrophils 10.13 H Absolute Lymphocytes 1.88 Absolute Monocytes 1.35 H Absolute Eosinophils 0.09 Absolute Basophils 0.03 Sodium Potassium Chloride Carbon Dioxide Anion Gap BUN Creatinine Est GFR (CKD-EPI 2020) Glucose Calcium Total Bilirubin AST ALT Alkaline Phosphatase C-Reactive Protein Total Protein Albumin Procalcitonin Monoscreen Negative Add-On Test Request DONE Last Vital Signs Temp 36.9 C 11/21/22 08:50 Pulse 63 11/21/22 11:30 Resp 15 11/21/22 08:50 BP 142/81 H 11/21/22 11:30 Pulse Ox 96 11/21/22 13:50 PAWSS Have you Been Recently Intoxicated or Drunk Within the Last 30 days?: No Have you Ever Experienced Previous Episodes of Alcohol Withdrawal?: No Have you ever Experienced Withdrawal Seizures?: No Have you ever Experienced Delirium Tremens(DT)s?: No Have you ever undergone Alcohol Rehabilitation Treatment (i.e, inpt ot outpatient treatment programs)?: No Have you ever Experienced Blackouts?: No Have you ever Combined Alcohol with other Downers within the last 90 days?: No Have you ever Combined Alcohol with any other Substance of Abuse during the last 90 days?: No Result: 0 Time Spent Time spent with Patient: 40-54 minutes Time was spent: preparing to see the patient(eg.review tests), obtaining and/or reviewing separately otained hiistory, ordering medications,tests, procedures, referring, communicating with other health rn progressive care unit, indepentently interpreting results, counseling the patient and care coordination
[2022-11-21] MEDS: Lactated Ringers 1,000 ML 125 ML IV ×2 (15:07→23:55)
[2022-11-21] MEDS: Ibuprofen 600 MG TAB PO ×2 (15:41→22:03)
[2022-11-21] MEDS: Benzocaine/Menthol LOZG 15/BOX 1 EACH SUC (16:51)
[2022-11-21] MEDS: CLINDAMYCIN 900 MG/50 ML BAG 50 MG IVPB (18:37)
[2022-11-22] VITALS (68 sets, daily range): BP systolic 126–163; BP diastolic 70–87; PULSE 50–67; RESP 9–23; TEMP 36–36.8; O2SAT 90–100
[2022-11-22] MEDS: CLINDAMYCIN 900 MG/50 ML BAG 50 MG IVPB ×3 (03:09→17:53)
[2022-11-22] MEDS: Ibuprofen 600 MG TAB PO ×4 (03:09→20:47)
[2022-11-22] MEDS: Dexamethasone 10 MG/ML VIAL IVP ×4 (03:58→20:47)
[2022-11-22 06:53] LABS: Abs Immature Grans 0.18 10^3/uL (0.0-0.06); Absolute Basophil Count 0.01 10^3/uL (0.0-0.2); Absolute Lymphocyte Count 0.84 10^3/uL (1.2-3.4); Absolute Monocyte Count 0.78 10^3/uL (0.1-0.8); Absolute Neutrophil Count 13.12 10^3/uL (1.2-6.7); Basophils % 0.1; HGB 12.5 g/dL (13.5-17.5); Immature Grans % 1.2; Lymphocytes % 5.6; MCH 33.7 pg (27.0-33.0); MCHC 35.7 % (32.0-36.0); MCV 94 fL (80-95); MPV 11.6 fL (8.0-11.0); Monocytes % 5.2; Neutrophils % 87.9; Platelet Count 128 10^3/uL (130-400); RBC 3.71 10^6/uL (4.36-5.78); RDW 12.6 % (11.8-14.1); RDW-SD 44.1 fL; WBC 14.93 10^3/uL (4.4-10.8)
[2022-11-22] MEDS: Pantoprazole 40 MG TABCR PO (07:31)
[2022-11-22 07:46] LABS: Hemoglobin A1C 5.5 % (<5.7)
[2022-11-22 07:49] LABS: Anion Gap 10.4 mmol/L (3-11); BUN 12 mg/dL (7-18); CO2 23.6 mmol/L (21.0-32.0); CREATININE 0.8 mg/dL (0.70-1.30); Calcium 9.1 mg/dL (8.5-10.1); Chloride 101 mmol/L (98-107); Estimated GFR 101.32 (mL/min/1.73m2); Glucose 161 mg/dL (74-106); Magnesium 1.5 mg/dL (1.8-2.4); Potassium 3.3 mmol/L (3.5-5.1); Sodium 135 mmol/L (136-145)
[2022-11-22] MEDS: METOPROLOL CR 50 MG, METOPROLOL CR 25 MG 75 MG PO (08:56)
[2022-11-22] MEDS: Normal Saline Flush 10 ML SYR IVP ×2 (08:56→20:47)
[2022-11-22] MEDS: Lisinopril 5 MG TAB PO (08:56)
[2022-11-22] MEDS: Atorvastatin 40 MG TAB PO (08:56)
[2022-11-22] MEDS: POTASSIUM CHLORIDE 10 MEQ/100 ML BAG 100 MEQ IVPB ×4 (09:04→12:14)
[2022-11-22] MEDS: MAGNESIUM SULFATE 2 GM/50 ML BAG IVPB (09:05)
--- NOTE | 2022-11-22 09:41 | W.PM.PROGNOT ---
Date of Service Date of service: 11/22/22 Time of Service: 09:41 Assessment and Plan Assessment and plan (1) Peritonsillar abscess: Status: Acute Assessment and plan: continue clindamycin and iv corticosteroids, advance diet to soft, minced and moist, thin liquids I will transfer him to med/surg as I think his edema has improved enough that his risk of airway compromise is reduced but would like another day of paretneral antibiotics and steroids (2) Retropharyngeal abscess: Status: Acute Assessment and plan: As above (3) Tonsillitis: Status: Acute Assessment and plan: As above (4) Atrial fibrillation: Status: Acute Assessment and plan: Continue metoprolol. resume anticoagulation this evening (5) Discharge planning issues: Status: Acute Assessment and plan: full code dc home in the am if continued improvement (6) DVT prophylaxis: Status: Acute Assessment and plan: SCDs while apixaban is on hold Subjective Subjective Interval history since last seen: Patient states he has had no difficulty breathing. His swallowing is better. He is handling jello and liquids. Throat is still sore but improving. His asked if we were going to repeat his imaging today, as she is wondering how we would know if things are improving. I explained to her that [place] [facility] [place] and he indicated to reimage him if his condition is either not improving or worsening and to reach out to them again if he worsens. As he is clinically improving, I do not feel that he needs an immediate reimage this morning but we can clinically follow him. I told her that he should remain for another 24 hours on iv antibiotics and steroids but can be moved to med/surg status and I will advance his diet and recheck him this afternoon. He will likely return home on oral antibiotics and steroids. Exam Narrative Exam Narrative: Middle age white male who is alert and oriented, sitting up in bed talking w/ his . Voice quality is somewhat hoarse Orophaynx: Mallampati class III, tongue does not appear swollen and uvula is not swollen Neck: tender w/ some fullness over right side, otherwise supple, palpable adenopathy on the right LUngs: clear, no stridor Heart: RRR (rhythm is sinus to sinus leon 59 to low 60's) Objective Last Vital Signs Temp 36.4 C L 11/22/22 07:41 Pulse 57 L 11/22/22 08:01 Resp 19 11/22/22 08:01 BP 162/87 H 11/22/22 08:01 Pulse Ox 96 11/22/22 08:01 Laboratory Results - last 24 hr 11/21/22 11/21/22 11/21/22 09:20 09:20 09:22 WBC RBC Hgb Hct MCV MCH MCHC RDW Plt Count MPV Immature Gran % Neutrophils % Lymphocytes % Monocytes % Eosinophils % Basophils % Nucleated RBC % Absolute Neutrophils Absolute Lymphocytes Absolute Monocytes Absolute Eosinophils Absolute Basophils Sodium 139 Potassium 3.5 Chloride 102 Carbon Dioxide 27.8 Anion Gap 9.2 BUN 12 Creatinine 0.9 Est GFR (CKD-EPI 2020) 97.78 Glucose 107 H Hemoglobin A1c Calcium 8.8 Magnesium Total Bilirubin 1.3 H AST 13 L ALT 24 Alkaline Phosphatase 74 C-Reactive Protein 11.77 H Total Protein 6.7 Albumin 3.6 Procalcitonin < 0.1 Monoscreen Add-On Test Request 11/21/22 11/21/22 11/22/22 09:22 13:18 05:45 WBC RBC Hgb Hct MCV MCH MCHC RDW Plt Count MPV Immature Gran % Neutrophils % Lymphocytes % Monocytes % Eosinophils % Basophils % Nucleated RBC % Absolute Neutrophils Absolute Lymphocytes Absolute Monocytes Absolute Eosinophils Absolute Basophils Sodium Potassium Chloride Carbon Dioxide Anion Gap BUN Creatinine Est GFR (CKD-EPI 2020) Glucose Hemoglobin A1c 5.5 Calcium Magnesium Total Bilirubin AST ALT Alkaline Phosphatase C-Reactive Protein Total Protein Albumin Procalcitonin Monoscreen Negative Add-On Test Request DONE 11/22/22 11/22/22 05:45 05:45 WBC 14.93 H RBC 3.71 L Hgb 12.5 L Hct 35.0 L MCV 94 MCH 33.7 H MCHC 35.7 RDW 12.6 Plt Count 128 L MPV 11.6 H Immature Gran % 1.2 Neutrophils % 87.9 Lymphocytes % 5.6 Monocytes % 5.2 Eosinophils % 0.0 Basophils % 0.1 Nucleated RBC % 0.0 Absolute Neutrophils 13.12 H Absolute Lymphocytes 0.84 L Absolute Monocytes 0.78 Absolute Eosinophils 0.00 Absolute Basophils 0.01 Sodium 135 L Potassium 3.3 L Chloride 101 Carbon Dioxide 23.6 Anion Gap 10.4 BUN 12 Creatinine 0.8 Est GFR (CKD-EPI 2020) 101.32 Glucose 161 H Hemoglobin A1c Calcium 9.1 Magnesium 1.5 L Total Bilirubin AST ALT Alkaline Phosphatase C-Reactive Protein 18.30 H Total Protein Albumin Procalcitonin Monoscreen Add-On Test Request PAWSS Have you Been Recently Intoxicated or Drunk Within the Last 30 days?: Yes Have you Ever Experienced Previous Episodes of Alcohol Withdrawal?: No Have you ever Experienced Withdrawal Seizures?: No Have you ever Experienced Delirium Tremens(DT)s?: No Have you ever undergone Alcohol Rehabilitation Treatment (i.e, inpt ot outpatient treatment programs)?: No Have you ever Experienced Blackouts?: No Have you ever Combined Alcohol with other Downers within the last 90 days?: No Have you ever Combined Alcohol with any other Substance of Abuse during the last 90 days?: No Positive Blood Alcohol level on Presentation? [PCS.BAL]: No Evidence of Increased Autonomic Activity (i.e. HR>120, tremor, sweating, agitation, nausea)?: No Result: 1 Time Spent with Patient Time Spent with Patient: 35-49 minutes Time was spent: preparing to see the patient(eg.review tests), ordering medications,tests, procedures, referring, communicating with other health critical care paramedic, indepentently interpreting results, counseling the patient (including his ) and care coordination
--- NOTE | 2022-11-22 09:56 | PDOC.CMIN ---
Date of service: 11/22/22 Time of Service: 10:23 Care Management Initial Assmt Initial Assessment REASON FOR HOSPITALIZATION:: Right peritonsillar abscess PREVIOUS FUNCTIONAL STATUS/SOCIAL/FAMILY SUPPORTS:: Kiran lives in [place] with his , Reena. 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 He is independent at baseline. CURRENT FUNCTIONAL STATUS:: Edmundo was lying in bed when CM met with him. His , Reena, arrived to visit during the conversation. They were pleasant and engaged in conversation. Edmundo stated that per MD, he may be ready for discharge as early as tomorrow. He stated that he has a lot less pain today than when he arrived yesterday. He was transferred from the ICU to med/surge status today. CM will continue to follow. ADVANCE DIRECTIVES:: Not on file; CM will offer forms. Has patient been provided with info about the portal/API?: Yes Did the patient sign up for the portal?: No CODE STATUS:: Full Code INSURANCE COVERAGE / FINANCIAL ISSUES:: BC/BS CURRENT HOME/COMMUNITY SERVICES/EQUIPMENT:: No current services or equipment. PRIMARY CARE PHYSICIAN:: unknown POTENTIAL DISCHARGE NEEDS:: Evaluations for further needs, follow up appointments. PATIENT/FAMILY EDUCATION NEEDS:: Review discharge instructions and limitations, discussion of self care needs including ask me three. ANTICIPATED BARRIERS TO DISCHARGE:: None identified. TRANSPORTATION:: Via private vehicle. PLAN:: Anticipate Kiran will return home once medically cleared. His will drive him home via private vehicle. He will follow up with his PCP and discharge plan of care. CM will continue to follow. PFSH All Active Problems (Updated 11/21/22 @ 14:29 by Roselyn Landa MD) DVT prophylaxis (Acute) Tonsillitis (Acute) Retropharyngeal abscess (Acute) Peritonsillar abscess (Acute) Abscess of tonsil (Acute) Adult supraglottitis (Acute) Traumatic hemo-pneumothorax (Acute) Hypertension (Acute) Discharge planning issues (Acute) Atrial fibrillation (Acute) Surgical History (Updated 11/21/22 @ 15:05 by Roselyn Landa MD) S/P ablation of atrial fibrillation S/P right knee arthroscopy S/P skin cancer resection Melanoma x 3 Family History (Updated 11/21/22 @ 15:06 by Roselyn Landa MD) Father Stroke Cancer prostate Brother Diabetes Hypertension Brother Cancer bone cancer Social History (Updated 11/21/22 @ 15:07 by Roselyn Landa MD) Smoking/Tobacco Use Status: Current every day Tobacco Type: cigarettes Smoking packs per day: 0.5 Smoking cigarettes per day: 10.0 Tobacco: How many years used: 30 Quit status: has quit before Counseling given: provider counseling, support medications and counseling >3 minutes Smoking risk assessment performed?: Yes Alcohol Intake: current Alcohol Intake frequency: 0-2 drinks per day Alcohol type: hard liquor Drug use: Never Substance use type: does not use Household members: significant other Housing: house 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
[2022-11-22 16:47] LABS: Potassium 4.1 mmol/L (3.5-5.1)
[2022-11-22] MEDS: Apixaban 5 MG TAB PO (20:47)
--- NOTE | 2022-11-23 | DI.CT_ITS ---
Exam(s) CT NECK WO/W EXAM: CT NECK WO/W CLINICAL HISTORY: pharyngeal abscess. TECHNIQUE: Imaging Protocol: Axial computed tomography images with coronal and sagittal reformatted images were created and reviewed CONTRAST MATERIAL: Intravenous: Omnipaque 350 Contrast volume:100 ml contrast COMPARISON: CT CT NECK W from 11/21/2022 FINDINGS: Parotids/submandibular/thyroid gland: Normal. Lymphadenopathy: There are scattered lymph nodes seen along the level one to level three all measuri ng less than 8 mm in short axis diameter which are physiologic in nature. Carotids/Jugular: No significant stenosis or dissection.. Soft tissues: Evaluation mildly limited by streak artifact from dental work. Decreased right tonsill ar enlargement. Interval decrease in size of right-sided tonsillar abscesses. Single abscess collec tion now visible measuring 9 millimeters. Significant interval decrease in amount of fluid seen in t he retropharyngeal and prevertebral space, now difficult to measure. The floor the mouth is unremarkable. The epiglottis and vocal cords are within normal limits. Lungs: Images through both lung apices are unremarkable. Bones: Degenerative changes of the cervical spine. Visualized portions of the brain and orbits: Unremarkable. Sinuses and mastoids: Clear. IMPRESSION: Significant interval improvement of right tonsillar enlargement, right tonsillar abscesses, retrophar yngeal abscess and prevertebral fluid. RADIATION DOSE DELIVERED: 1,055.23mGy.cm Total DLP DATA REPOSITORY: All CT scans at this facility are submitted to the National Radiology Data Registry (NRDR) Dose Index Registry (DIR) with the [employer] (ACR). RADIATION OPTIMIZATION: All CT scans at this facility use at least one of these dose optimization te chniques: automated exposure control; mA and/or kV adjustment per patient size (includes targeted exa ms where dose is matched to clinical indication); or iterative reconstruction.
[2022-11-23] MEDS: CLINDAMYCIN 900 MG/50 ML BAG 50 MG IVPB ×3 (02:06→18:09)
[2022-11-23] MEDS: Ibuprofen 600 MG TAB PO ×4 (03:02→21:36)
[2022-11-23] MEDS: Dexamethasone 10 MG/ML VIAL IVP ×4 (03:03→21:36)
[2022-11-23 07:45] VITALS: PULSE 57; RESP 20; TEMP 36.3; O2SAT 95
[2022-11-23] MEDS: Pantoprazole 40 MG TABCR PO (07:52)
[2022-11-23] MEDS: Normal Saline Flush 10 ML SYR IVP ×4 (07:53→21:39)
[2022-11-23 07:56] VITALS: BP 167/87; PULSE 53
--- NOTE | 2022-11-23 08:29 | PGE_ITS ---
Date of Service Date of service: 11/23/22 Time of Service: 08:29 Assessment and Plan Assessment and plan (1) Peritonsillar abscess: Status: Acute Assessment and plan: Continue clindamycin, change IV Decadron to oral prednisone. We will check follow-up CT scan soft tissues of his neck to ensure that there is been no progression of his infection. If there is signs of progression of abscess formation we will consult with ENT for surgical drainage. Professional time spent interviewing and examining patient, discussion of goals of care with hospital team (care management, nursing and consulting professionals) was 30 minutes. (2) Retropharyngeal abscess: Status: Acute Assessment and plan: As above (3) Tonsillitis: Status: Acute Assessment and plan: As above (4) Atrial fibrillation: Status: Acute Assessment and plan: Continue metoprolol. resume anticoagulation this evening (5) Discharge planning issues: Status: Acute Assessment and plan: full code Discharge plans pending results of CT scan whether patient needs surgical intervention. (6) DVT prophylaxis: Status: Acute Assessment and plan: SCDs while apixaban is on hold Subjective Subjective Interval history since last seen: Patient states that he feels he is regressing. He is not having any dysphagia however he says that the feeling of fullness in his throat is similar to this infection started. However he is having no difficulty swallowing his dysphonia is improved. Exam Narrative Exam Narrative: Kiran sitting up in his chair eating breakfast not having any difficulty swallowing. His voice quality has improved remarkably he is not having any dy sphonia. Neck is supple and the area of swelling in the right neck is markedly diminished patient is now a focal area of adenopathy anterior cervical triangle. There is minimal tenderness with palpation. Oropharynx Mallampati class II with no edema of his uvula palate or tongue. Objective Last Vital Signs Temp 36.8 C 11/22/22 18:07 Pulse 55 L 11/22/22 20:53 Resp 19 11/22/22 18:07 BP 132/80 11/22/22 20:53 Pulse Ox 98 11/22/22 09:01 Laboratory Results - last 24 hr 11/22/22 16:20 Potassium 4.1 Magnesium 2.0 PAWSS Have you Been Recently Intoxicated or Drunk Within the Last 30 days?: Yes Have you Ever Experienced Previous Episodes of Alcohol Withdrawal?: No Have you ever Experienced Withdrawal Seizures?: No Have you ever Experienced Delirium Tremens(DT)s?: No Have you ever undergone Alcohol Rehabilitation Treatment (i.e, inpt ot outpatient treatment programs)?: No Have you ever Experienced Blackouts?: No Have you ever Combined Alcohol with other Downers within the last 90 days?: No Have you ever Combined Alcohol with any other Substance of Abuse during the last 90 days?: No Positive Blood Alcohol level on Presentation? [PCS.BAL]: No Evidence of Increased Autonomic Activity (i.e. HR>120, tremor, sweating, agitation, nausea)?: No Result: 1 Time Spent with Patient Time Spent with Patient: 25-34 minutes Time was spent: preparing to see the patient(eg.review tests), ordering medications,tests, procedures, referring, communicating with other health neonatal critical care nurse, indepentently interpreting results, counseling the patient and care coordination
[2022-11-23] MEDS: Apixaban 5 MG TAB PO ×2 (08:59→20:03)
[2022-11-23] MEDS: Atorvastatin 40 MG TAB PO (08:59)
[2022-11-23] MEDS: Lisinopril 5 MG TAB PO (08:59)
[2022-11-23] MEDS: METOPROLOL CR 50 MG, METOPROLOL CR 25 MG 75 MG PO (08:59)
[2022-11-23 09:26] LABS: Abs Immature Grans 0.23 10^3/uL (0.0-0.06); Absolute Basophil Count 0.02 10^3/uL (0.0-0.2); Absolute Neutrophil Count 14.69 10^3/uL (1.2-6.7); Basophils % 0.1; HCT 39.6 % (40.0-50.0); HGB 13.8 g/dL (13.5-17.5); Immature Grans % 1.4; Lymphocytes % 5.3; MCH 33.6 pg (27.0-33.0); MCHC 34.8 % (32.0-36.0); MCV 96 fL (80-95); MPV 11.1 fL (8.0-11.0); Monocytes % 4.1; Neutrophils % 89.1; Platelet Count 157 10^3/uL (130-400); RBC 4.11 10^6/uL (4.36-5.78); RDW 12.9 % (11.8-14.1); WBC 16.49 10^3/uL (4.4-10.8)
[2022-11-23] MEDS: Normal Saline - Diluent 50 ML VIAL IJ (09:29)
[2022-11-23 09:31] LABS: Absolute Lymphocyte Count 0.87 10^3/uL (1.2-3.4); Absolute Monocyte Count 0.68 10^3/uL (0.1-0.8)
--- NOTE | 2022-11-23 09:33 | PDOC.CMPRO ---
Date of service: 11/23/22 Time of Service: 09:33 Care Management Progress Note Progress Note Text Progress Note Text: S/O: Edmundo was sitting up in bed when CM met with him. He reported that he had a repeat CT this morning, which was reviewed by hospitalist and ENT MD. Per report, his condition has improved by imaging, therefore he will likely remain at [facility] for continued management with IV antibiotics. He is comfortable with this plan, and happy with the care he is receiving. CM will continue to follow. A: Kiran is a 62 year old admitted to [facility] on 11/21/22 with right peritonsillar abscess. P: Kiran may require transfer to a tertiary facility, if his condition worsens. Anticipate Kiran will return home when medically cleared. His will drive him home via private vehicle. He will follow up with his PCP and discharge plan of care. CM will continue to follow.
[2022-11-23] MEDS: Omnipaque 350 MG/ML 500 ML BTL-Imaging package IJ (09:34)
[2022-11-23 09:45] LABS: BUN 16 mg/dL (7-18); C-Reactive Protein 7.93 mg/dL (0.0-0.3); Calcium 9.2 mg/dL (8.5-10.1); Chloride 100 mmol/L (98-107); Estimated GFR 86.16 (mL/min/1.73m2); Glucose 197 mg/dL (74-106); Magnesium 1.9 mg/dL (1.8-2.4); Potassium 3.6 mmol/L (3.5-5.1); Sodium 134 mmol/L (136-145)
[2022-11-23 09:56] LABS: Procalcitonin < 0.1 ng/mL
[2022-11-23 11:21] LABS: HIV-1/2 Ag & Ab Screen Negative (Negative)
--- NOTE | 2022-11-23 12:33 | W.ENTCONSULT ---
Date of service: 11/23/22 Time of Service: 12:33 History of Present Illness Narrative: The patient presented on 11/21/2022 with a sore throat that was progressing since Wednesday. CT scan revealed significant soft tissue swelling involving soft tissues around the right tonsil and peritonsillar region with hypoechoic signals around the inferior tonsillar pole. He was admitted for IV clindamycin and Decadron. This morning, as he was complaining about sore throat, repeat CT scan was done. I reviewed these films, and this shows what appears to be continuing resolution of the problem with dramatic decrease in the hypoechoic region. He is eating lunch as I speak to him. He feels that his symptoms are much better. He has never had peritonsillar abscess or strep throat. He notes no injury. He notes no sick contacts. Assessment and Plan Assessment and plan (1) Peritonsillar cellulitis: Status: Acute Assessment and plan: This appears to be responding nicely to antibiotics based on CT scan, and also on exam. I would recommend continuing the IV antibiotics for an additional 2 days, and taking him off of the steroids. Once he is ready for discharge, assuming his symptoms do not progress, we should see him in the office in approximately 3 to 4 weeks. Please call my office to schedule this. I would recommend clindamycin at 300 mg 4 times daily or 600 mg 3 times daily for 10 days after release. He should also be encouraged to quit smoking. They had no further questions. Review of Systems Narrative: As on admission paperwork [facility] All Active Problems (Updated 11/23/22 @ 12:49 by Cosme Reddy MD) Peritonsillar cellulitis (Acute) DVT prophylaxis (Acute) Tonsillitis (Acute) Retropharyngeal abscess (Acute) Peritonsillar abscess (Acute) Abscess of tonsil (Acute) Adult supraglottitis (Acute) Traumatic hemo-pneumothorax (Acute) Hypertension (Acute) Discharge planning issues (Acute) Atrial fibrillation (Acute) Surgical History (Updated 11/21/22 @ 15:05 by Roselyn Lnada MD) S/P ablation of atrial fibrillation S/P right knee arthroscopy S/P skin cancer resection Melanoma x 3 Family History (Updated 11/21/22 @ 15:06 by Roselyn Landa MD) Father Stroke Cancer prostate Brother Diabetes Hypertension Brother Cancer bone cancer Social History (Updated 11/21/22 @ 15:07 by Roselyn Landa MD) Smoking/Tobacco Use Status: Current every day Tobacco Type: cigarettes Smoking packs per day: 0.5 Smoking cigarettes per day: 10.0 Tobacco: How many years used: 30 Quit status: has quit before Counseling given: provider counseling, support medications and counseling >3 minutes Smoking risk assessment performed?: Yes Alcohol Intake: current Alcohol Intake frequency: 0-2 drinks per day Alcohol type: hard liquor Drug use: Never Substance use type: does not use Household members: significant other Housing: house 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 He is handling his secretions without difficulty. He is not sniffling. He does not have a hot potato or muffled voice quality. He does not have halitosis. [facility] Head: normal to inspection Mouth: oral mucosae normal and other (No floor of mouth elevation, no trismus, tongue appears normal) Teeth and gingiva: other (No inflammation, no trismus) Throat: posterior oropharynx normal (No discrete asymmetry on oropharyngeal exam. ), tonsils normal (Atrophic), uvula midline, no peritonsillar masses (No fullness or asymmetry), no postnasal drainage, uvula not displaced and other (No masses or lesions) Neck Other: Minimal nonfluctuant right tender nonfixed zone 2 and 3 lymphadenopathy. Laryngeal crepitance is preserved. The larynx rises and falls normally with swallow. Results Last Vital Signs Temp 36.3 C L 11/23/22 07:45 Pulse 53 L 11/23/22 07:56 Resp 20 11/23/22 07:45 BP 167/87 H 11/23/22 07:56 Pulse Ox 95 11/23/22 07:45 Labs 11/23/22 09:15 11/23/22 09:15 Labs: Laboratory Results - last 24 hr 11/22/22 11/23/22 11/23/22 16:20 08:37 08:38 WBC RBC Hgb Hct MCV MCH MCHC RDW Plt Count MPV Immature Gran % Neutrophils % Lymphocytes % Monocytes % Eosinophils % Basophils % Nucleated RBC % Absolute Neutrophils Absolute Lymphocytes Absolute Monocytes Absolute Eosinophils Absolute Basophils Sodium Cancelled Potassium 4.1 Cancelled Chloride Cancelled Carbon Dioxide Cancelled Anion Gap Cancelled BUN Cancelled Creatinine Cancelled Est GFR (CKD-EPI 2020) Cancelled Glucose Cancelled Calcium Cancelled Magnesium 2.0 Cancelled C-Reactive Protein Procalcitonin 11/23/22 11/23/22 11/23/22 09:15 09:15 09:15 WBC 16.49 H RBC 4.11 L Hgb 13.8 Hct 39.6 L MCV 96 H MCH 33.6 H MCHC 34.8 RDW 12.9 Plt Count 157 MPV 11.1 H Immature Gran % 1.4 Neutrophils % 89.1 Lymphocytes % 5.3 Monocytes % 4.1 Eosinophils % 0.0 Basophils % 0.1 Nucleated RBC % 0.0 Absolute Neutrophils 14.69 H Absolute Lymphocytes 0.87 L Absolute Monocytes 0.68 Absolute Eosinophils 0.00 Absolute Basophils 0.02 Sodium 134 L Potassium 3.6 Chloride 100 Carbon Dioxide 23.0 Anion Gap 11.0 BUN 16 Creatinine 1.0 Est GFR (CKD-EPI 2020) 86.16 Glucose 197 H Calcium 9.2 Magnesium 1.9 C-Reactive Protein 7.93 H Procalcitonin < 0.1
[2022-11-23 14:31] VITALS: BP 162/83; PULSE 57; RESP 16; TEMP 35.7; O2SAT 98
[2022-11-23] MEDS: Normal Saline 500 ML 30 ML IV (18:08)
[2022-11-23 20:00] VITALS: BP 149/70; PULSE 56; RESP 16; TEMP 36; O2SAT 96
[2022-11-23 23:37] VITALS: BP 141/78; PULSE 53; RESP 16; TEMP 36.1; O2SAT 100
[2022-11-24] MEDS: CLINDAMYCIN 900 MG/50 ML BAG 50 MG IVPB ×3 (02:01→17:37)
[2022-11-24] MEDS: Normal Saline Flush 10 ML SYR IVP ×3 (02:01→10:11)
[2022-11-24 03:45] VITALS: BP 165/87; PULSE 73; RESP 16; TEMP 35.9; O2SAT 97
[2022-11-24] MEDS: Ibuprofen 600 MG TAB PO ×4 (03:51→21:44)
[2022-11-24] MEDS: Dexamethasone 10 MG/ML VIAL IVP (03:51)
[2022-11-24 07:11] VITALS: BP 155/98; PULSE 74; TEMP 36; O2SAT 97
[2022-11-24] MEDS: Atorvastatin 40 MG TAB PO (07:42)
[2022-11-24] MEDS: Pantoprazole 40 MG TABCR PO (07:42)
[2022-11-24] MEDS: Apixaban 5 MG TAB PO ×2 (07:42→19:52)
[2022-11-24] MEDS: METOPROLOL CR 50 MG, METOPROLOL CR 25 MG 75 MG PO (07:43)
[2022-11-24] MEDS: Lisinopril 5 MG TAB PO (07:43)
--- NOTE | 2022-11-24 09:59 | CMPROGNOTE_ITS ---
Date of service: 11/24/22 Time of Service: 09:59 Care Management Progress Note Progress Note Text Progress Note Text: S/O: Kiran is feeling somewhat better, still c/o a sore throat but no difficulty swallowing. Anticipate, Kiran will discharge home tomorrow on a 10 day course of PO Clindamycin after his IV ABX are finished, if medically ready. He will need outpatient follow up with ENT. No new services are anticipated at this time. A: Kiran is a 62 year old admitted to [facility] on 11/21/22 with right peritonsillar abscess. P: Anticipate Kiran will return home on a course of PO Clindamycin when medically cleared. His will drive him home via private vehicle. He will follow up with his PCP, ENT and discharge plan of care as instructed. No new services are anticipated at this time. CM will continue to follow.
--- NOTE | 2022-11-24 12:52 | W.PM.PROGNOT ---
Date of Service Date of service: 11/24/22 Time of Service: 12:52 Assessment and Plan Assessment and plan (1) Peritonsillar abscess: Status: Acute Assessment and plan: continue iv clindamycin through today, then dc home in the a.m. on 10 days of Clindamycin 600 mg tid. steroids have been discontinued. He should follow up w/ Dr. Reddy in 3 to 4 weeks. I will advance diet (2) Tonsillitis: Status: Acute Assessment and plan: As above (3) Atrial fibrillation: Status: Acute Assessment and plan: continue metoprolol and apixaban (4) DVT prophylaxis: Status: Acute Assessment and plan: patient on apixaban for afib (5) Discharge planning issues: Status: Acute Assessment and plan: dc home in the a.m. as noted above Subjective Subjective Interval history since last seen: Edmundo still has some slight discomfort in his throat but this is getting better. No difficulty swallowing. I told him that he will stay today for more iv clindamycin but that he should not need further steroids at this point. Exam Narrative Exam Narrative: Edmundo is sitting up in his bed, watching TV. Voice quality has improved. Lungs: clear Oropharynx: Mallampati class II, no edema of his uvula or tongue Neck: supple, swelling is nearly resolved, just some palpable adenopathy over right anterior cervical triangle Objective Last Vital Signs Temp 36.0 C L 11/24/22 07:11 Pulse 74 11/24/22 07:11 Resp 16 11/24/22 03:45 BP 155/98 H 11/24/22 07:11 Pulse Ox 97 11/24/22 07:11 Laboratory Results - last 24 hr 11/22/22 05:45 HIV 1&2 Ag/Ab, 4th Gen Negative PAWSS Have you Been Recently Intoxicated or Drunk Within the Last 30 days?: Yes Have you Ever Experienced Previous Episodes of Alcohol Withdrawal?: No Have you ever Experienced Withdrawal Seizures?: No Have you ever Experienced Delirium Tremens(DT)s?: No Have you ever undergone Alcohol Rehabilitation Treatment (i.e, inpt ot outpatient treatment programs)?: No Have you ever Experienced Blackouts?: No Have you ever Combined Alcohol with other Downers within the last 90 days?: No Have you ever Combined Alcohol with any other Substance of Abuse during the last 90 days?: No Positive Blood Alcohol level on Presentation? [PCS.BAL]: No Evidence of Increased Autonomic Activity (i.e. HR>120, tremor, sweating, agitation, nausea)?: No Result: 1 Time Spent with Patient Time Spent with Patient: <25 minutes Time was spent: preparing to see the patient(eg.review tests), counseling the patient and care coordination
[2022-11-24 15:03] VITALS: BP 162/95; PULSE 89; RESP 18; TEMP 35.6; O2SAT 96
[2022-11-24] MEDS: Acetaminophen 325 MG TAB PO (15:27)
--- NOTE | 2022-11-24 15:56 | CHAPLAIN ---
Kiran was in a conversation with his nurse when I visited. I spoke with his , explained my role and offered support.
[2022-11-24 19:38] VITALS: BP 129/83; PULSE 94; RESP 18; TEMP 36; O2SAT 97
[2022-11-24 23:11] VITALS: BP 161/92; PULSE 95; RESP 18; TEMP 35.8; O2SAT 97
[2022-11-25] MEDS: CLINDAMYCIN 900 MG/50 ML BAG 50 MG IVPB ×2 (02:41→10:09)
[2022-11-25] MEDS: Normal Saline Flush 10 ML SYR IVP ×3 (02:44→10:09)
[2022-11-25 02:46] VITALS: BP 162/92; PULSE 85; RESP 16; TEMP 36; O2SAT 98
[2022-11-25] MEDS: Ibuprofen 600 MG TAB PO ×2 (04:27→10:09)
[2022-11-25] MEDS: METOPROLOL CR 50 MG, METOPROLOL CR 25 MG 75 MG PO (08:18)
[2022-11-25] MEDS: Lisinopril 5 MG TAB PO (08:19)
[2022-11-25] MEDS: Apixaban 5 MG TAB PO (08:21)
[2022-11-25] MEDS: Atorvastatin 40 MG TAB PO (08:21)
[2022-11-25 08:32] VITALS: BP 129/83; PULSE 99; RESP 17; TEMP 36.2; O2SAT 98
[2022-11-25] MEDS: Pantoprazole 40 MG TABCR PO (09:03)
--- NOTE | 2022-11-25 11:19 | DSE_ITS ---
Date of service: 11/25/22 Time of Service: 11:19 DS: Diagnosis Discharge Diagnosis (1) Peritonsillar abscess: Status: Acute (2) Tonsillitis: Status: Acute (3) Atrial fibrillation: Status: Acute Discharge Plan Disposition Patient Disposition: Home Condition: Improving Discharge Details Reason For Visit: Right Peritonsillar,Retropharyngeal,Parabertebral Admit Date/Time: 11/21/22 13:20 Admit Provider: Fabian Post Attending Provider: Fabian Post Primary Care Provider: Yasmani Olivares Hospital Course Hospital Course: Mr Hdz is a 62 year old male with history of Afib on anticoagulation, HTN, hyperlipidemia, GERD, who presented to [facility] with 4 days of a sore throat, but who woke up with changes in his voice but did not have difficulty swallowing liquid. In the ED, his airway was evaluated and the visible portion appeared patent. Rapid strep test was negative; strep culture negative. Monospot was negative. COVID-[address] of the neck revealed R-sided tonsilar and retropharyngeal abscesses with fluid extending into paravertebral soft tissues down to the level of C6. The images were evaluated by [facility] [place] [place] ENT and neuro IR, who both felt that there would not need to be an immediate intervention or, likely, any intervention at all other than medical therapy. The patient was started on IV clindamycin and dexamethasone. Local consultation was placed with Dr. Reddy who evaluated the patient. He was in agreement with current plan which patient was responding to. Plan is to down step to oral clindamycin and follow-up outpatient with Dr. Reddy in 3 weeks. Discharge is discussed with Dr. Landa? Home Meds and New Rx's Prescriptions: New clindamycin HCl 300 mg capsule 300 mg PO QID Qty: 40 0RF BiomePRO 50 billion cell capsule,delayed release(DR/EC) 1 cap PO DAILY Qty: 14 0RF Continued pantoprazole 40 mg tablet,delayed release (DR/EC) 40 mg PO DAILY lisinopril 5 mg tablet 5 mg PO DAILY atorvastatin [Lipitor] 40 mg tablet 40 mg PO DAILY ibuprofen 600 MG tablet 600 mg PO Q6H Qty: 30 0RF metoprolol succinate [Toprol XL] 50 mg tablet extended release 24 hr 75 mg PO DAILY apixaban 5 mg tablet 5 mg PO BID Qty: 60 0RF Discharge Instructions Instructions: Peritonsillar Abscess (DC) Stand Alone Forms: Nursing Discharge Form Referrals: Yasmani Olivares [Primary Care Provider] - 12/08/22 1:00 pm Cosme Reddy MD [ [facility] STAFF PHYSICIAN] - 12/14/22 3:00 pm (3 week follow up) Activity:: Activity as Tolerated Equipment/Supplies:: No Equipment Needed Diet:: As Tolerated Discharge Orders Discharge Orders: Discharge Order (Routine); Ordered 11/25/22 Ordered By: Dulce Maria Arguello Discharge Data Discharge Date/Time-TO BE ENTERED AT DEPARTURE: 11/25/22 13:16 DS: Summary Time Spent with Patient providing and/or coordinating discharge services: Less than 30 minutes Status at Discharge Functional status at discharge: independent ambulation Overall status at discharge: patient is progressing back to baseline Mental Status: mental status grossly normal Speech and Movement: speech and movement normal Mood: congruent mood Affect: normal affect Exam Const General: cooperative, healthy appearing, comfortable and no acute distress Nutritional Appearance: average body habitus Orientation: alert, awake and oriented x3 HENMT Head: normal to inspection, normocephalic and atraumatic Face and sinus: normal facial exam Mouth: oral mucosae normal, no drooling and no muffled voice Chest Chest: normal inspection of the chest Resp Effort & Inspection: normal respiratory effort, no cough and no stridor Skin General skin exam: no rashes or lesions noted Neuro General: patient alert, patient awake and patient oriented x3 Speech: speech normal Motor: muscle tone normal throughout Extrem General: normal to inspection and full ROM Psych Mental Status: mental status grossly normal Speech and Movement: speech and movement normal Mood: congruent mood Affect: normal affect DS: Data Vitals/I&O Vitals and I&O: Vital Signs Temperature 36.2 C L 11/25/22 08:32 Temperature Source Temporal Artery Scan 11/25/22 08:32 Pulse 99 H 11/25/22 08:32 Pulse Rhythm Irregular 11/25/22 08:25 Pulse 66 11/22/22 18:07 Respiratory Rate 17 11/25/22 08:32 Respiratory Effort Normal, Non-Labored 11/25/22 08:25 Respiratory Depth Normal 11/25/22 08:25 Respiratory Pattern Normal 11/25/22 08:25 Blood Pressure 129/83 11/25/22 08:32 Blood Pressure Mean 109 11/23/22 07:56 Blood Pressure Position Supine 11/22/22 04:00 Pulse Oximetry 98 11/25/22 08:32 Oxygen Delivery Method Room Air 11/25/22 02:46 Oxygen Flow Rate 0 11/25/22 02:46 Pain Level 0 11/25/22 08:32 Comment LANDIS rated at a 2.5 11/24/22 15:03 Intake & Output 11/24/22 11/24/22 11/25/22 11:59 23:59 11:59 Intake Total 340 / 910 570 / 910 450 / 450 Balance 340 / 910 570 / 910 450 / 450 Weight 79.8 kg Intake: IV 100 / 150 50 / 150 50 / 50 Oral 240 / 760 520 / 760 400 / 400 Other: Urine Color Yellow Urine Appearance Clear Clear Comment unmeasured voids, pt independent Voiding Methods Toilet Data Completed and Pending Labs on day of discharge: Preliminary micro results at discharge 11/21/22 11:53 Blood Culture - Preliminary Blood NO GROWTH 72 HOURS 11/21/22 11:46 Blood Culture - Preliminary Blood NO GROWTH 72 HOURS PFSH All Active Problems (Updated 11/23/22 @ 12:49 by Cosme Reddy MD) Peritonsillar cellulitis (Acute) DVT prophylaxis (Acute) Tonsillitis (Acute) Retropharyngeal abscess (Acute) Peritonsillar abscess (Acute) Abscess of tonsil (Acute) Adult supraglottitis (Acute) Traumatic hemo-pneumothorax (Acute) Hypertension (Acute) Discharge planning issues (Acute) Atrial fibrillation (Acute) Surgical History (Updated 11/21/22 @ 15:05 by Roselyn Landa MD) S/P ablation of atrial fibrillation S/P right knee arthroscopy S/P skin cancer resection Melanoma x 3 Family History (Updated 11/21/22 @ 15:06 by Roselyn Landa MD) Father Stroke Cancer prostate Brother Diabetes Hypertension Brother Cancer bone cancer Social History (Updated 11/21/22 @ 15:07 by Roselyn Landa MD) Smoking/Tobacco Use Status: Current every day Tobacco Type: cigarettes Smoking packs per day: 0.5 Smoking cigarettes per day: 10.0 Tobacco: How many years used: 30 Quit status: has quit before Counseling given: provider counseling, support medications and counseling >3 minutes Smoking risk assessment performed?: Yes Alcohol Intake: current Alcohol Intake frequency: 0-2 drinks per day Alcohol type: hard liquor Drug use: Never Substance use type: does not use Household members: significant other Housing: house 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
--- NOTE | 2022-11-25 15:03 | PDOC.CMDIS ---
Date of service: 11/25/22 Time of Service: 15:03 LACE Index Scoring Tool Questions: Length of Stay (in days): 4 - 6 Was the patient admitted via the E.D.?: Yes E.D. Visits: 0 Answers: Total Score: 7 Risk of Readmission: Low Risk Care Management Discharge Plan Reason for Hospitalization: Right peritonsillar abscess Discharge Plan: Kiran returned home today with no new services. His drove him home via private vehicle. He will follow up with his PCP and discharge plan of care. He is happy to be going home. Patient/Family Education Needs: Review discharge instructions and limitations, discussion of self care needs including ask me three.
== END 2022-11-25 13:16 | disposition home or self-care (01) | DRG 153 ==
LOC: ER 13:42 → ICU 14:16 → MS 11-23 12:41
PROVIDERS: Internal Medicine; Admitting Provider Internal Medicine; Emergency Provider Nurse Practitioner Family; PCP Family Medicine; Visit Provider Internal Medicine
DX: J36 Peritonsillar abscess (principal); I48.91 Unspecified atrial fibrillation; Z79.01 Long term (current) use of anticoagulants; E78.5 Hyperlipidemia, unspecified; K21.9 Gastro-esophageal reflux disease without esophagitis; J04.30 Supraglottitis, unspecified, without obstruction; I10 Essential (primary) hypertension; F17.210 Nicotine dependence, cigarettes, uncomplicated; I65.22 Occlusion and stenosis of left carotid artery
CPT/HCPCS: 36415; 70491; 80048; 80053; 81025; 84145; 87040; 87389; 87426; 96365; 96375; 99285; 70492; 83036; 83735; 84132; 85025; 86140; 86308; 87081; 99231; 99232; 99238; 99291; J1100; J2270; J3480; J3490

== ENCOUNTER 2023-07-19 07:44 | Emergency (ER) | payer BC, SELFPAY ==
[2023-07-19 07:46] VITALS: BP 158/115; PULSE 111; RESP 17; TEMP 36.7; O2SAT 99
--- NOTE | 2023-07-19 08:00 | DI.MRI_ITS ---
Exam(s) MR LUMBAR SPINE WO EXAM: MR LUMBAR SPINE WO CLINICAL HISTORY: severe back pain. TECHNIQUE: Multiplanar multisequence MRI of the Lumbar spine was performed. COMPARISON: No exams were available for comparison FINDINGS: Bones: The last intervertebral disc space is designated the L5/S1 level for the numbering purpose of this examination. The vertebral body heights are well maintained. Alignment is satisfactory. Mild d egenerative endplate signal changes are seen from L2-3 through L4-L5. Cord: The conus tip ends at the T12 level. It is of normal size and signal intensity. T12-L1: No disc herniations or bulges are present. No central spinal canal or neural foraminal stenos is. L1-2: No disc herniations or bulges are present. No central spinal canal or neural foraminal stenosis . L2-3: No disc herniations or bulges are present. No central spinal canal or neural foraminal stenosis . L3-4: There is a mild diffuse disc bulge. No significant central spinal canal or neural foraminal st enosis is seen. Mild degenerative changes of the facets are present. L4-5: There is a diffuse disc bulge eccentric to the right with extension into the right neural richar en. Mild degenerative changes of the facets are seen. No significant central spinal canal stenosis is present. There is moderate right neural foraminal stenosis and mild left neural foraminal stenosi s. L5-S1: There is a small central disc herniation. No nerve root compression is seen. Mild degenerati ve changes of the facets are present. No significant central spinal canal or neural foraminal stenos is is present. Soft tissues: The visualized SI joints and sacrum are well maintained. The paraspinal soft tissues ar e unremarkable. IMPRESSION: Multilevel degenerative changes in the lumbar spine. The findings are most marked at L4-L5 where the re is moderate right neural foraminal stenosis and mild left neural foraminal stenosis. Please see t kelly above discussion for complete details. DATA REPOSITORY:
[2023-07-19] MEDS: Methocarbamol 500 MG TAB 1000 MG PO (08:19)
[2023-07-19] MEDS: HYDROcodone 10/Acetaminophen 325 TAB PO (08:19)
[2023-07-19] MEDS: Pregabalin 50 MG CAP PO (08:39)
--- NOTE | 2023-07-19 13:06 | ED.GENADUL_ITS ---
Discharge Plan Disposition Patient Disposition: Home Condition: Stable Discharge Details Clinical Impression: Lower back pain, Sciatica Primary Care Provider: Yasmani Olivares ED Provider: Chauncey Yan Home Meds and New Rx's Prescriptions: New methocarbamol 500 mg tablet 1,000 mg PO QHS PRN (Reason: back pain) Qty: 30 0RF lidocaine [Lidoderm] 5 % adhesive patch,medicated 1 patch topical DAILY Qty: 15 0RF Rx Instructions: leave on most painful area for up to 12 hrs No Action pantoprazole 40 mg tablet,delayed release (DR/EC) 40 mg PO DAILY lisinopril 5 mg tablet 5 mg PO DAILY atorvastatin [Lipitor] 40 mg tablet 40 mg PO DAILY ibuprofen 600 MG tablet 600 mg PO Q6H Qty: 30 0RF metoprolol succinate [Toprol XL] 50 mg tablet extended release 24 hr 75 mg PO DAILY apixaban 5 mg tablet 5 mg PO BID Qty: 60 0RF Discharge Instructions Instructions: Sciatica (ED) Additional Instructions: please use medications as prescribed can also take motrin or tylenol please follow up with your PCP for re-evaluation and release for work HPI General Date/Time Provider Initiated Documentation: 07/19/23 08:02 . Limitations to Documentation: no limitations . Information obtained by: patient . HPI Narrative: Past medical history including traumatic pneumothorax, hypertension, A-fib presents for evaluation of back pain. He reports that last Wednesday he lifted something at work. He states that it was not particularly heavy, but that he had acute onset of lower back pain and a sensation of pulling in his rectum. He has been taking Senokot for constipation. He denies any difficulty with urination or incontinence. He reports pain with walking. He denies any numbness or weakness. Related Data Home Medications Medication Instructions Recorded Confirmed ibuprofen 600 mg tablet 600 mg PO Q6H #30 tabs 08/30/17 07/19/23 apixaban 5 mg tablet 5 mg PO BID Atrial fibrillation 03/22/19 07/19/23 #60 tabs pantoprazole 40 mg tablet,delayed 40 mg PO DAILY 01/10/20 07/19/23 release lisinopril 5 mg tablet 5 mg PO DAILY 11/12/21 07/19/23 atorvastatin 40 mg tablet (Lipitor) 40 mg PO DAILY 11/11/22 07/19/23 metoprolol succinate 50 mg 75 mg PO DAILY 11/11/22 07/19/23 tablet,extended release 24 hr (Toprol XL) lidocaine 5 % topical patch 1 patch topical DAILY #15 ea 07/19/23 (Lidoderm) methocarbamol 500 mg tablet 1,000 mg (2 x 500 mg) PO QHS PRN 07/19/23 back pain #30 tabs Previous Rx's Medication Instructions Recorded ibuprofen 600 mg tablet 600 mg PO Q6H #30 tabs 08/30/17 apixaban 5 mg tablet 5 mg PO BID Atrial fibrillation 03/22/19 #60 tabs lidocaine 5 % topical patch 1 patch topical DAILY #15 ea 07/19/23 (Lidoderm) methocarbamol 500 mg tablet 1,000 mg (2 x 500 mg) PO QHS PRN 07/19/23 back pain #30 tabs Allergies Allergy/AdvReac Type Severity Reaction Status Date / Time amoxicillin Allergy Unknown Skin Rash Verified 07/19/23 07:51 Penicillins Allergy Unknown Skin Rash Verified 07/19/23 07:51 General Stated Complaint: Nk/Back Pain ARIAN: 3 Exam Narrative Exam Narrative: Review of Systems: All systems reviewed & are unremarkable except as noted in HPI and below Well-developed, no acute distress NCAT PERRL, normal conjunctiva Irregularly irregular Unlabored respiratory effort, clear bilaterally Nondistended abdomen, nontender Rectal examination with sensation intact, good tone, abundant stool in the vault Extremities w/o deformity, no cyanosis, no edema No midline back tenderness, step-off or deformity Normal strength in bilateral lower extremities, sensation intact, difficulty holding against resistance on right lower leg secondary to pain No rashes or lesions. no focal neurologic deficits Appropriate mood and affect Course Vital Signs Vital signs: Vital Signs Temperature 36.7 C 07/19/23 07:46 Pulse 111 H 07/19/23 07:46 Respiratory Rate 17 07/19/23 07:46 Blood Pressure 158/115 H 07/19/23 07:46 Pulse Oximetry 99 07/19/23 07:46 Temperature 36.7 C 07/19/23 07:46 Temperature Source Temporal Artery Scan 07/19/23 07:46 Pulse 111 H 07/19/23 07:46 Respiratory Rate 17 07/19/23 07:46 Respiratory Effort Normal 07/19/23 07:49 Blood Pressure 158/115 H 07/19/23 07:46 Blood Pressure Position Sitting 07/19/23 07:46 Pulse Oximetry 99 07/19/23 07:46 Oxygen Delivery Method Room Air 07/19/23 07:46 Oxygen Flow Rate 0 07/19/23 07:46 Pain Level 6 07/19/23 08:19 Medical Decision Making Emergent evaluation of acute low back pain most consistent with musculoskeletal strain vs sciatica. Patient was given Robaxin, Lyrica and [place] for pain. Low suspicion for acute cord compression or cauda equina at this time, given presentation and symptoms, including epidural abscess or hematoma. Patient has no history of malignancy, active or distant history. Patient has no unexplained weight loss. No recent fevers, rigors, malaise, or recent infection. No history of IVDU or skin-popping. Patient does not have any history concerning for saddle anesthesia/perianal sensory loss or complaining of decreased rectal tone. Patient does not have urinary retention or inability to control urine from overflow. PVR obtained, less than 60. Patient has no tenderness overlying spinous process. Patient has no focal weakness on examination. Given exam and history, low suspicion for cord compression, cauda equina, epidural abscess/hematoma. Distally neurovascuarly intact. MRI was able to be obtained in the emergency department and this was negative for acute spinal process. Discussed pain control, physical therapy and follow up with PMD. Cautious return precautions discussed w/ full understanding Medical Records Medical records reviewed: Yes I reviewed the patient's medical records. Lab Data Lab results reviewed: Yes I reviewed the patient's lab results. Quality:SDOH Health Related Social Needs: No Data to Display PFSH All Active Problems Sciatica (Acute) Lower back pain (Acute) Peritonsillar cellulitis (Acute) Tonsillitis (Acute) Retropharyngeal abscess (Acute) Peritonsillar abscess (Acute) Abscess of tonsil (Acute) Adult supraglottitis (Acute) Traumatic hemo-pneumothorax (Acute) Hypertension (Acute) Atrial fibrillation (Acute) Surgical History S/P skin cancer resection Melanoma x 3 S/P right knee arthroscopy S/P ablation of atrial fibrillation Family History Father Stroke Cancer prostate Brother Diabetes Hypertension Brother Cancer bone cancer Social History Smoking/Tobacco Use Status: Current every day Tobacco Type: cigarettes Smoking packs per day: 0.5 Smoking cigarettes per day: 10.0 Tobacco: How many years used: 30 Quit status: has quit before Counseling given: provider counseling, support medications and counseling >3 minutes Smoking risk assessment performed?: Yes Alcohol Intake: current Alcohol Intake frequency: 0-2 drinks per day Alcohol type: hard liquor Drug use: Never Substance use type: does not use Household members: significant other Housing: house 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 PAWSS Have you Been Recently Intoxicated or Drunk Within the Last 30 days?: No Have you Ever Experienced Previous Episodes of Alcohol Withdrawal?: No Have you ever Experienced Withdrawal Seizures?: No Have you ever Experienced Delirium Tremens(DT)s?: No Have you ever undergone Alcohol Rehabilitation Treatment (i.e, inpt ot outpatient treatment programs)?: No Have you ever Experienced Blackouts?: No Have you ever Combined Alcohol with other Downers within the last 90 days?: No Have you ever Combined Alcohol with any other Substance of Abuse during the last 90 days?: No Result: 0
== END 2023-07-19 10:20 | disposition home or self-care (01) ==
PROVIDERS: Emergency Provider Emergency Medicine; PCP Family Medicine
DX: M54.31 Sciatica, right side (principal); X50.0XXA Overexertion from strenuous movement or load, initial encounter
CPT/HCPCS: 51798; 99283; 72148; J3490

== ENCOUNTER 2023-07-21 17:31 | Inpatient (IN) | payer BC, SELFPAY ==
[2023-07-21] VITALS (15 sets, daily range): BP systolic 164–217; BP diastolic 77–93; PULSE 79–86; RESP 18–20; TEMP 37.7–38; O2SAT 94–98
--- NOTE | 2023-07-21 17:45 | DI.CT_ITS ---
Exam(s) CT PELVIC W EXAM: CT PELVIC W CLINICAL HISTORY: Rectal pain, swelling, fever. TECHNIQUE: Imaging Protocol: Axial computed tomography images with coronal and sagittal reformatted images were created and reviewed CONTRAST MATERIAL: Intravenous: Omnipaque 100cc Oral: None COMPARISON: CT CHEST ABD PELVIS WITH CONTRAST from 08/28/2017 FINDINGS: PELVIS: OSSEOUS:No pelvic or hip fractures evident. No significant osseous lesions. ANTERIOR ABDOMINAL WALL/GI:No evidence of bowel obstruction. Appendix not included in the field of v iew.Sigmoid diverticulosis. No obvious acute diverticulitis. LYMPH NODES: There is no intrapelvic nor inguinal adenopathy. REPRODUCTIVE: Prostate size normal. Seminal vesicles unremarkable. URINARY BLADDER: No calculi nor obvious masses evident OTHER: There is a perirectal-Bushra anal abscess which measures approximately 5 x 4 x 5 cm. This invol ves the posterior rectal wall (series 2/image 40) involve both sides the midline. It appears somewha t loculated. Although there is some involvement of the ischial rectal fat, there is no involvement o f the adjacent bones-ischial tuberosities-inferior pubic rami. No evidence of osteomyelitis. IMPRESSION: 1. There is a prominent loculated distal perirectal/perianal abscess measuring approximately 5 x 4 x 4 cm RADIATION DOSE DELIVERED: 420.34mGy.cm Total DLP DATA REPOSITORY: All CT scans at this facility are submitted to the National Radiology Data Registry (NRDR) Dose Index Registry (DIR) with the [employer] (ACR). RADIATION OPTIMIZATION: All CT scans at this facility use at least one of these dose optimization te chniques: automated exposure control; mA and/or kV adjustment per patient size (includes targeted exa ms where dose is matched to clinical indication); or iterative reconstruction.
--- NOTE | 2023-07-21 17:52 | W.ED.GENAD ---
Discharge Plan Disposition Patient Disposition: Admit to [facility] Condition: Stable Discharge Details Clinical Impression: Bushra-rectal abscess Admit Date/Time: 07/21/23 19:41 Admit Provider: Erlinda Carrillo Attending Provider: Erlinda Carrillo Primary Care Provider: Yasmani Olivares ED Provider: Raine Moraes General Mode of arrival: ambulatory. Date/Time Provider Initiated Documentation: 07/21/23 17:33. Limitations to Documentation: no limitations. Information obtained by: RN notes reviewed and old records reviewed. HPI Narrative: 63-year-old male presents to the ER with chief complaint of rectal pain, fever chills Tmax 103 prior to arrival. Patient did take Tylenol and ibuprofen also associated nausea body aches and headaches. He was seen on Wednesday for lower back pain after heavy lifting incident where he felt states he felt a pop in his rectum. Since then has had increasing pain. MRI of L-spine was done which showed some degenerative changes and bulging disc around L4-L5 no significant stenosis or cauda equina noted. On exam patient does have some external hemorrhoids noted they are not engorged. He also has an area of warmth and induration to his right inner gluteal fold. Past medical history includes atrial fibrillation he is on apixaban, hypertension. He has had few bowel movements since this occurred he is taking MiraLAX, denies any bladder dark stools. No vomiting. He does report the pain is radiating into his groin. Related Data Home Medications Medication Instructions Recorded Confirmed ibuprofen 600 mg tablet 600 mg PO Q6H #30 tabs 08/30/17 07/21/23 apixaban 5 mg tablet 5 mg PO BID Atrial fibrillation 03/22/19 07/21/23 #60 tabs pantoprazole 40 mg tablet,delayed 40 mg PO DAILY 01/10/20 07/21/23 release lisinopril 5 mg tablet 5 mg PO DAILY 11/12/21 07/21/23 atorvastatin 40 mg tablet (Lipitor) 40 mg PO DAILY 11/11/22 07/21/23 metoprolol succinate 50 mg 75 mg PO DAILY 11/11/22 07/21/23 tablet,extended release 24 hr (Toprol XL) lidocaine 5 % topical patch 1 patch topical DAILY #15 ea 07/19/23 07/21/23 (Lidoderm) methocarbamol 500 mg tablet 1,000 mg (2 x 500 mg) PO QHS PRN 07/19/23 07/21/23 back pain #30 tabs Previous Rx's Medication Instructions Recorded ibuprofen 600 mg tablet 600 mg PO Q6H #30 tabs 08/30/17 apixaban 5 mg tablet 5 mg PO BID Atrial fibrillation 03/22/19 #60 tabs lidocaine 5 % topical patch 1 patch topical DAILY #15 ea 07/19/23 (Lidoderm) methocarbamol 500 mg tablet 1,000 mg (2 x 500 mg) PO QHS PRN 07/19/23 back pain #30 tabs Allergies Allergy/AdvReac Type Severity Reaction Status Date / Time amoxicillin Allergy Unknown Skin Rash Verified 07/21/23 17:41 Penicillins Allergy Unknown Skin Rash Verified 07/21/23 17:41 General Stated Complaint: GenMedical ARIAN: 3 Review of Systems All systems reviewed & are unremarkable except as noted in HPI and below Gastrointestinal Gastrointestinal: Reports as per HPI and Denies hematochezia Exam Narrative Exam Narrative: Constitutional: Alert and oriented x3. Appears stated age. Normal body habitus. Head: Normocephalic, no trauma. Eyes: Pupils PERRL, Red reflex noted, EOM's intact. Eyelids symmetrical without lesions, discharge, or swelling. ENT: Bilateral TM's WNL, External ear normal to inspection, no mastoid TTP, swelling, or erythema, Nasal turbinates WNL, no nasal discharge. Normal dentition, Posterior pharynx WNL, no exudate. Chest: RRR, Normal S1, S2, distal pulses intact. Resp: Lungs clear to auscultation bilaterally, no wheezes, rales, or rhonchi. Abdomen: Soft, non-distended, Normoactive bowel sounds all 4 quads. 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 No drainage. Musculoskeletal: Normal gait, Moves all 4 extremities without difficulty. Skin: No suspicious rashes or lesions. Capillary refill less than 2 sec. Neurologic: Cranial nerves II-XII intact. Alert and oriented x 3. Motor: No deficits noted. Sensory: Intact bilaterally all 4 extremities. Hematologic/Lymphatic: No ecchymosis, no lymphadenopathy. Course Vital Signs Vital signs: Vital Signs Temperature 37.7 C H 07/21/23 17:36 Pulse 86 07/21/23 17:36 Respiratory Rate 18 07/21/23 17:36 Blood Pressure 210/93 H 07/21/23 17:36 Pulse Oximetry 98 07/21/23 17:36 Temperature 37.7 C H 07/21/23 17:36 Temperature Source Oral 07/21/23 17:36 Pulse 86 07/21/23 17:36 Respiratory Rate 18 07/21/23 17:36 Respiratory Effort Normal, Non-Labored 07/21/23 17:41 Blood Pressure 210/93 H 07/21/23 17:36 Blood Pressure Position Sitting 07/21/23 17:36 Pulse Oximetry 98 07/21/23 17:36 Oxygen Delivery Method Room Air 07/21/23 17:36 Oxygen Flow Rate 0 07/21/23 17:36 Pain Level 10 07/21/23 17:36 Medical Decision Making 63-year-old male presents to the ER with chief complaint of rectal pain, fever chills Tmax 103 prior to arrival. Patient did take Tylenol and ibuprofen also associated nausea body aches and headaches. He was seen on Wednesday for lower back pain after heavy lifting incident where he felt states he felt a pop in his rectum. Since then has had increasing pain. MRI of L-spine was done which showed some degenerative changes and bulging disc around L4-L5 no significant stenosis or cauda equina noted. On exam patient does have some external hemorrhoids noted they are not engorged. He also has an area of warmth and induration to his right inner gluteal fold. Past medical history includes atrial fibrillation he is on apixaban, hypertension. He has had few bowel movements since this occurred he is taking MiraLAX, denies any bladder dark stools. No vomiting. He does report the pain is radiating into his groin. Due to fever and patient symptoms ordered CBC CMP lactate blood cultures x [address] pelvis with IV contrast. CT shows perirectal abscess 5 x 4 x 4 with loculations and which extends to the distal posterior rectal wall. 500 mg IV Flagyl ordered considered ceftriaxone however patient is allergic to penicillin and amoxicillin. I did speak with Dr. Carrillo regarding patient case in details she accepts patient for admission. No surgery tonight due to patient's apixaban. Will place holding orders. Patient last ate at noon today. Patient last took his apixaban this morning he usually takes it morning and p.m. I did instruct on most likely n.p.o. status at midnight. Patient and family verbalized understanding all her questions were answered to the best my ability. Patient awaiting bed transport up to the floor. Patient remained hemodynamically stable condition throughout the remainder of stay. This text was generated using [employer] system, please disregard any oddities of phrase or misspellings. Medical Records Medical records reviewed: Yes I reviewed the patient's medical records. Imaging Data Radiologic Study: Imaging: CT Scan Radiologist's impression: Age: 63 years old Clinical indication: Other: Rectal pain, swelling, fever TECHNIQUE: Imaging protocol: Computed tomography of the pelvis with contrast. Contrast material: 350; Contrast volume: 100 ml; Contrast route: INTRAVENOUS (IV); COMPARISON: CT CHEST ABD PELVIS WITH CONTRAST 08/28/2017 10:10 FINDINGS: Intestine: Diverticula throughout visualized colon without diverticular inflammation. No significant inflammation of visualized small bowel. Peripherally enhancing, loculated perianal and perirectal abscess, 5 x 4 x 4 cm. The largest loculation extends from the distal posterior rectal wall, caudally toward the perianal space; there is a U shaped component posterior to the anus which demonstrates multiple small loculations. There is mild surrounding edema. Appendix: No evidence of appendicitis. Intraperitoneal space: No free air. No significant fluid collection. Lymph nodes: No enlarged lymph nodes. Reproductive: Normal as visualized. Urinary bladder: Normal. No mass. Bones/joints: No acute fracture. No dislocation. Soft tissues: Small fat-containing umbilical hernia. IMPRESSION: Loculated distal perirectal and perianal abscess, 5 x 4 x 4 cm. Lab Data Lab results reviewed: Yes I reviewed the patient's lab results. Labs: 07/21/23 18:37 Blood Blood Culture - Pending 07/21/23 17:50 Blood Blood Culture - Pending Laboratory Tests Range/Units 07/21/23 18:00 WBC (4.4-10.8) 10^3/uL 13.57 H RBC (4.36-5.78) 10^6/uL 4.09 L Hgb (13.5-17.5) g/dL 13.7 Hct (40.0-50.0) % 39.5 L MCV (80-95) fL 97 H MCH (27.0-33.0) pg 33.5 H MCHC (32.0-36.0) % 34.7 RDW (11.8-14.1) % 12.4 Plt Count (130-400) 10^3/uL 217 MPV (8.0-11.0) fL 10.9 Immature Gran % % 0.0 Neutrophils % % 74.0 Band Neutrophils % % 1 Lymphocytes % % 12.0 Monocytes % % 11.0 Eosinophils % % 2.0 Basophils % % 0.0 Nucleated RBC % (0.0-0.3) % 0.0 Absolute Neutrophils (1.2-6.7) 10^3/uL 10.18 H Absolute Lymphocytes (1.2-3.4) 10^3/uL 1.63 Absolute Monocytes (0.1-0.8) 10^3/uL 1.49 H Absolute Eosinophils (0.0-0.7) 10^3/uL 0.27 Absolute Basophils (0.0-0.2) 10^3/uL 0.00 RBC Morphology Normal VBG Lactate (0.6-1.4) mmol/L 1.5 H Sodium (136-145) mmol/L 139 Potassium (3.5-5.1) mmol/L 3.1 L Chloride (98-107) mmol/L 102 Carbon Dioxide (21.0-32.0) mmol/L 27.6 Anion Gap (3-11) mmol/L 9.4 BUN (7-18) mg/dL 13 Creatinine (0.70-1.30) mg/dL 1.0 Est GFR (CKD-EPI 2020) (mL/min/1.73m2) 85.63 Glucose (74-106) mg/dL 104 Calcium (8.5-10.1) mg/dL 9.0 Magnesium (1.8-2.4) mg/dL 1.7 L Total Bilirubin (0.2-1.0) mg/dL 0.5 AST (15-37) U/L 12 L ALT (16-63) U/L 26 Alkaline Phosphatase (46-116) U/L 66 Total Protein (6.4-8.2) g/dL 7.5 Albumin (3.4-5.0) g/dL 3.4 Quality:SDOH Health Related Social Needs: No Data to Display PFSH All Active Problems (Updated 07/21/23 @ 20:15 by Erlinda Carrillo DO) Hypomagnesemia (Acute) Acute hypokalemia (Acute) Elevated cholesterol (Chronic) Chronic GERD (Acute) Bushra-rectal abscess (Acute) Sciatica (Acute) Lower back pain (Acute) Peritonsillar cellulitis (Acute) Tonsillitis (Acute) Retropharyngeal abscess (Acute) Peritonsillar abscess (Acute) Abscess of tonsil (Acute) Adult supraglottitis (Acute) Traumatic hemo-pneumothorax (Acute) Hypertension (Acute) Atrial fibrillation (Acute) Surgical History S/P skin cancer resection Melanoma x 3 S/P right knee arthroscopy S/P ablation of atrial fibrillation Family History Father Stroke Cancer prostate Brother Diabetes Hypertension Brother Cancer bone cancer Social History Smoking/Tobacco Use Status: Current every day Tobacco Type: cigarettes Smoking packs per day: 0.5 Smoking cigarettes per day: 10.0 Tobacco: How many years used: 30 Quit status: has quit before Counseling given: provider counseling, support medications and counseling >3 minutes Smoking risk assessment performed?: Yes Alcohol Intake: current Alcohol Intake frequency: 0-2 drinks per day Alcohol type: hard liquor Drug use: Never Substance use type: does not use Household members: significant other Housing: house 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 PAWSS Have you Been Recently Intoxicated or Drunk Within the Last 30 days?: No Have you Ever Experienced Previous Episodes of Alcohol Withdrawal?: No Have you ever Experienced Withdrawal Seizures?: No Have you ever Experienced Delirium Tremens(DT)s?: No Have you ever undergone Alcohol Rehabilitation Treatment (i.e, inpt ot outpatient treatment programs)?: No Have you ever Experienced Blackouts?: No Have you ever Combined Alcohol with other Downers within the last 90 days?: No Have you ever Combined Alcohol with any other Substance of Abuse during the last 90 days?: No Positive Blood Alcohol level on Presentation? [PCS.BAL]: No Evidence of Increased Autonomic Activity (i.e. HR>120, tremor, sweating, agitation, nausea)?: No Result: 0
[2023-07-21 18:08] LABS: Lactate 1.5 mmol/L (0.6-1.4)
[2023-07-21 18:14] LABS: HCT 39.5 % (40.0-50.0); HGB 13.7 g/dL (13.5-17.5); MCH 33.5 pg (27.0-33.0); MCHC 34.7 % (32.0-36.0); MCV 97 fL (80-95); MPV 10.9 fL (8.0-11.0); Platelet Count 217 10^3/uL (130-400); RBC 4.09 10^6/uL (4.36-5.78); RDW 12.4 % (11.8-14.1); RDW-SD 43.8 fL; WBC 13.57 10^3/uL (4.4-10.8)
[2023-07-21 18:25] LABS: ALT 26 U/L (16-63); AST 12 U/L (15-37); Albumin 3.4 g/dL (3.4-5.0); Alkaline Phosphatase 66 U/L (46-116); Anion Gap 9.4 mmol/L (3-11); BUN 13 mg/dL (7-18); Bilirubin, Total 0.5 mg/dL (0.2-1.0); CO2 27.6 mmol/L (21.0-32.0); Chloride 102 mmol/L (98-107); Estimated GFR 85.63 (mL/min/1.73m2); Glucose 104 mg/dL (74-106); Magnesium 1.7 mg/dL (1.8-2.4); Potassium 3.1 mmol/L (3.5-5.1); Sodium 139 mmol/L (136-145); Total Protein 7.5 g/dL (6.4-8.2)
[2023-07-21 18:43] LABS: Absolute Eosinophil Count 0.27 10^3/uL (0.0-0.7); Absolute Lymphocyte Count 1.63 10^3/uL (1.2-3.4); Absolute Monocyte Count 1.49 10^3/uL (0.1-0.8); Absolute Neutrophil Count 10.18 10^3/uL (1.2-6.7); Bands % 1 %; Diff Comment Manual Differential; RBC Morphology Normal
[2023-07-21] MEDS: Lidocaine 2% Jelly 6 ML SYR TP (18:53)
[2023-07-21] MEDS: Potassium Chloride 20 MEQ TABCR 40 MEQ PO (18:53)
[2023-07-21] MEDS: Magnesium Oxide 400 MG TAB PO (18:53)
[2023-07-21] MEDS: Omnipaque 350 MG/ML 100 ML BTL IJ (18:55)
[2023-07-21] MEDS: Normal Saline - Diluent 50 ML VIAL IJ (18:56)
[2023-07-21] MEDS: Normal Saline Flush 10 ML SYR IVP ×4 (18:57→23:21)
--- NOTE | 2023-07-21 19:27 | DI.VRAD_ITS ---
PROCEDURE INFORMATION: Exam: CT Pelvis With Contrast Exam date and time: 07/21/2023 18:54 Age: 63 years old Clinical indication: Other: Rectal pain, swelling, fever TECHNIQUE: Imaging protocol: Computed tomography of the pelvis with contrast. Contrast material: 350; Contrast volume: 100 ml; Contrast route: INTRAVENOUS (IV); COMPARISON: CT CHEST ABD PELVIS WITH CONTRAST 08/28/2017 10:10 FINDINGS: Intestine: Diverticula throughout visualized colon without diverticular inflammation. No significant inflammation of visualized small bowel. Peripherally enhancing, loculated perianal and perirectal abscess, 5 x 4 x 4 cm. The largest loculation extends from the distal posterior rectal wall, caudally toward the perianal space; there is a U shaped component posterior to the anus which demonstrates multiple small loculations. There is mild surrounding edema. Appendix: No evidence of appendicitis. Intraperitoneal space: No free air. No significant fluid collection. Lymph nodes: No enlarged lymph nodes. Reproductive: Normal as visualized. Urinary bladder: Normal. No mass. Bones/joints: No acute fracture. No dislocation. Soft tissues: Small fat-containing umbilical hernia. IMPRESSION: Loculated distal perirectal and perianal abscess, 5 x 4 x 4 cm. Dictated and Authenticated by: Madeleine Shukla MD. Ordering:BON Ni MD
[2023-07-21] MEDS: metroNIDAZOLE 500 MG/100 ML BAG 100 MG IVPB (19:29)
[2023-07-21 20:11] LABS: Bilirubin Negative (Negative); Blood Trace-intact (Negative); Clarity Clear (Clear); Glucose Negative (Negative); Ketones Negative (Negative); Leukocyte Esterase Negative (Negative); Nitrite Negative (Negative)
--- NOTE | 2023-07-21 20:12 | HPE_ITS ---
Date of service: 07/21/23 Time of Service: 20:12 Assessment and Plan Assessment and plan (1) Bushra-rectal abscess: Status: Acute Assessment and plan: - Pain management A1c was normal in 2022 Trend electrolytes Invanz We need to wait 24 hours in order to let the apixaban resolve OR tomorrow afternoon for incision and drainage. Patient will need home health care for packing Will plan on trip to the OR tomorrow for packing change under anesthesia but just to [facility], [place]. And most likely discharge home Wednesday or on Wednesday. Depending on findings and how he does in the next 24 hours. Risks: Risks of surgery include but are not limited to: bleeding/infection/pneumonia/blood clots.? Possible postoperative urinary retention (particularly in men).? Complications of the anethesetic- which will be reviewed by anesthesia.? The rare complication of damage to the sphincters that would include loss of control or stricture. We d/w the importance of avoiding straining to move your bowels.? Straining can cause worsening of the hemorrhoids, recurrence, other ano-rectal problems, and diverticular disease. ?We d/w the importance of a high fiber diet, water, and regular exercise.? We reviewed the consideration of adding in a fiber supplement and how to use fiber. I also reviewed home care after surgery.? We talked about spasms after surgery, and the best way to control this is with topical analgesia and warm sitz baths.? Spasms last for about two weeks after surgery.? And really, the best treatment for spasms is to soak in a tub of warm water.? He will need to do packing dressing changes for a couple of weeks depending on how it heals. There is a chance that he may develop fistula and need to have repeat surgery. There is a chance of bleeding because he is still on blood thinners and we will need to hold those for a few weeks. To there is theoretically a risk of stroke, although the risk is low on the risk of bleeding and change on the apixaban is higher than that of stroke. We discussed what he could expect at home as far as pain, pain management plan, dressing changes, diet, and work we will review those things further at the time of discharge patient is agreeable to surgery today. And further recommendations to follow based on findings at the time of surgery This document was created with voice activated software and may contain errors. 60 mins spent in direct pt care and 10 in non face to face time (2) Hypertension: Status: Acute (3) Atrial fibrillation: Status: Acute (4) Chronic GERD: Status: Acute (5) Elevated cholesterol: Status: Chronic (6) Acute hypokalemia: Status: Acute (7) Hypomagnesemia: Status: Acute History of Present Illness Narrative: Patient is a 63-year-old male with a history of GERD and a chronic smoker he comes in today with a large perirectal abscess. He has a history of A-fib which was treated by an ablation several years ago. He is currently in sinus rhythm. He takes apixaban for paroxysmal A-fib. Past surgical history significant for a knee scope with no hardware and for the cardiac ablation. He can climb a flight of stairs without chest pain or shortness of breath. He was moving a table 2 to 3 days ago when he felt a sharp pain in his rectum. It has become progressively worse. Yesterday he could not tolerate the pain and came into the ER. He has no temperature today. He does have an elevated white count. He has a large perirectal abscess on the right side at the 7 o'clock position in an anatomical position. I did personally review CT and white count. He is not diabetic. He has never had any problems with rectal abscesses in the past. He denies any other trauma. He moves his bowels 1-2 times a day and is very regular. He does not notice any blood in his stools. He may have had a hemorrhoid in the remote past. He has no chronic history of any anal rectal issues. He does not have Crohn's disease or other inflammatory bowel disease. He is not diabetic. He is a smoker. He has had a colonoscopy within the last year, not at our facility. He has had polyps in the past. There is no evidence of extensive diverticular disease on CT scan today. He has had no problems with anesthesia in the past. He has been off his apixaban for the last 24 hours. Review of Systems All systems reviewed & are unremarkable except as noted in HPI and below PFSH All Active Problems (Updated 07/21/23 @ 20:15 by Erlinda Carrillo DO) Hypomagnesemia (Acute) Acute hypokalemia (Acute) Elevated cholesterol (Chronic) Chronic GERD (Acute) Bushra-rectal abscess (Acute) Sciatica (Acute) Lower back pain (Acute) Peritonsillar cellulitis (Acute) Tonsillitis (Acute) Retropharyngeal abscess (Acute) Peritonsillar abscess (Acute) Abscess of tonsil (Acute) Adult supraglottitis (Acute) Traumatic hemo-pneumothorax (Acute) Hypertension (Acute) Atrial fibrillation (Acute) Surgical History S/P skin cancer resection Melanoma x 3 S/P right knee arthroscopy S/P ablation of atrial fibrillation Family History Father Stroke Cancer prostate Brother Diabetes Hypertension Brother Cancer bone cancer Social History Smoking/Tobacco Use Status: Current every day Tobacco Type: cigarettes Smoking packs per day: 0.5 Smoking cigarettes per day: 10.0 Tobacco: How many years used: 30 Quit status: has quit before Counseling given: provider counseling, support medications and counseling >3 minutes Smoking risk assessment performed?: Yes Alcohol Intake: current Alcohol Intake frequency: 0-2 drinks per day Alcohol type: hard liquor Drug use: Never Substance use type: does not use Household members: significant other Housing: house 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 Meds Allergies and Home Medications Allergies Allergy/AdvReac Type Severity Reaction Status Date / Time amoxicillin Allergy Unknown Skin Rash Verified 07/21/23 17:41 Penicillins Allergy Unknown Skin Rash Verified 07/21/23 17:41 Home Medications Medication Instructions Recorded Confirmed Type ibuprofen 600 mg tablet 600 mg PO Q6H #30 tabs 08/30/17 07/21/23 Rx apixaban 5 mg tablet 5 mg PO BID Atrial fibrillation 03/22/19 07/21/23 Rx #60 tabs pantoprazole 40 mg tablet,delayed 40 mg PO DAILY 01/10/20 07/21/23 History release atorvastatin 40 mg tablet (Lipitor) 40 mg PO DAILY 11/11/22 07/21/23 History metoprolol succinate 50 mg 75 mg PO DAILY 11/11/22 07/21/23 History tablet,extended release 24 hr (Toprol XL) methocarbamol 500 mg tablet 1,000 mg (2 x 500 mg) PO QHS PRN 07/19/23 07/21/23 Rx back pain #30 tabs lisinopril 20 mg tablet 20 mg PO DAILY 07/22/23 07/22/23 History metoprolol succinate 25 mg 25 mg PO DAILY 07/22/23 07/22/23 History tablet,extended release 24 hr Exam Const General: cooperative, healthy appearing, no acute distress, well developed and well groomed Orientation: alert, awake and oriented x3 Other: PHYSICAL EXAM GENERAL APPEARANCE: Alert, healthy appearance, oriented, x 3,? in no acute distress HEAD, EYES, EARS, NECK, THROAT: Head is normocephalic, pupils equal, round, reactive to light and accommodation, ocular movement intact, sclera clear and no jaundice. ?Dentition intact. LUNGS: normal respiration/normal chest excursion. ?Clear to auscultation bilaterally. ?No wheeze. ?HEART: Regular rate and rhythm. no murmurs ABDOMEN: soft and non-tender to palpation.? Normal bowel sounds. Rectal exam is deferred at this time. Patient notes that he is quite uncomfortable. He has had no bleeding or discharge today. The pain is better today than it was when he came into the ER. Results Labs 07/22/23 06:18 07/22/23 06:18 Labs: Laboratory Results - last 24 hr 07/21/23 18:00 WBC 13.57 H RBC 4.09 L Hgb 13.7 Hct 39.5 L MCV 97 H MCH 33.5 H MCHC 34.7 RDW 12.4 Plt Count 217 MPV 10.9 Immature Gran % 0.0 Neutrophils % 74.0 Band Neutrophils % 1 Lymphocytes % 12.0 Monocytes % 11.0 Eosinophils % 2.0 Basophils % 0.0 Nucleated RBC % 0.0 Absolute Neutrophils 10.18 H Absolute Lymphocytes 1.63 Absolute Monocytes 1.49 H Absolute Eosinophils 0.27 Absolute Basophils 0.00 RBC Morphology Normal VBG Lactate 1.5 H Sodium 139 Potassium 3.1 L Chloride 102 Carbon Dioxide 27.6 Anion Gap 9.4 BUN 13 Creatinine 1.0 Est GFR (CKD-EPI 2020) 85.63 Glucose 104 Calcium 9.0 Magnesium 1.7 L Total Bilirubin 0.5 AST 12 L ALT 26 Alkaline Phosphatase 66 Total Protein 7.5 Albumin 3.4 Last Vital Signs Temp 37.7 C H 07/21/23 17:36 Pulse 86 07/21/23 17:36 Resp 18 07/21/23 17:36 BP 210/93 H 07/21/23 17:36 Pulse Ox 98 07/21/23 17:36 PAWSS Have you Been Recently Intoxicated or Drunk Within the Last 30 days?: No Have you Ever Experienced Previous Episodes of Alcohol Withdrawal?: No Have you ever Experienced Withdrawal Seizures?: No Have you ever Experienced Delirium Tremens(DT)s?: No Have you ever undergone Alcohol Rehabilitation Treatment (i.e, inpt ot outpatient treatment programs)?: No Have you ever Experienced Blackouts?: No Have you ever Combined Alcohol with other Downers within the last 90 days?: No Have you ever Combined Alcohol with any other Substance of Abuse during the last 90 days?: No Positive Blood Alcohol level on Presentation? [PCS.BAL]: No Evidence of Increased Autonomic Activity (i.e. HR>120, tremor, sweating, agitation, nausea)?: No Result: 0 Time Spent Time spent with Patient: 55-74 minutes Time was spent: preparing to see the patient(eg.review tests), obtaining and/or reviewing separately otained hiistory, ordering medications,tests, procedures, referring, communicating with other health care information associate, indepentently interpreting results, counseling the patient and care coordination
[2023-07-21 20:19] LABS: Bacteria Negative HPF (Negative); C & S Indicated? No; Casts Negative LPF (Negative); Crystals Negative HPF (Negative); Epithelial Cells Rare HPF (Negative); Mucus Trace (Negative); RBC 0-2 HPF (0-2); WBC 0-2 HPF (0-5)
[2023-07-21] MEDS: MORPHine 4 MG/ML SYR 3 MG IVP ×2 (20:19→23:11)
[2023-07-21] MEDS: Lactated Ringers 1,000 ML 80 ML IV (21:06)
[2023-07-21] MEDS: ERTAPENEM 1 GM in Normal Saline 50 ML IVPB (22:33)
[2023-07-22] VITALS (17 sets, daily range): BP systolic 121–175; BP diastolic 69–104; PULSE 76–115; RESP 13–32; TEMP 34.7–36.7; O2SAT 94–97; BMI 30.9
[2023-07-22 06:41] LABS: Abs Immature Grans 0.08 10^3/uL (0.0-0.06); Absolute Basophil Count 0.03 10^3/uL (0.0-0.2); Absolute Lymphocyte Count 1.71 10^3/uL (1.2-3.4); Absolute Neutrophil Count 10.43 10^3/uL (1.2-6.7); Basophils % 0.2 %; Eosinophils % 0.8 %; HCT 38.6 % (40.0-50.0); HGB 13.3 g/dL (13.5-17.5); Immature Grans % 0.6 %; Lymphocytes % 11.9 %; MCH 33.1 pg (27.0-33.0); MCHC 34.5 % (32.0-36.0); MCV 96 fL (80-95); MPV 11.1 fL (8.0-11.0); Monocytes % 13.9 %; Neutrophils % 72.6 %; Platelet Count 202 10^3/uL (130-400); RBC 4.02 10^6/uL (4.36-5.78); RDW 12.5 % (11.8-14.1); WBC 14.36 10^3/uL (4.4-10.8)
[2023-07-22 06:43] LABS: Absolute Eosinophil Count 0.11 10^3/uL (0.0-0.7)
[2023-07-22 06:57] LABS: Anion Gap 11.6 mmol/L (3-11); BUN 12 mg/dL (7-18); CO2 23.4 mmol/L (21.0-32.0); CREATININE 0.9 mg/dL (0.70-1.30); Calcium 8.7 mg/dL (8.5-10.1); Chloride 102 mmol/L (98-107); Estimated GFR 97.17 (mL/min/1.73m2); Glucose 123 mg/dL (74-106); Magnesium 1.8 mg/dL (1.8-2.4); Potassium 3.6 mmol/L (3.5-5.1); Sodium 137 mmol/L (136-145)
[2023-07-22 07:20] LABS: Diff Comment Agrees w/ Instrument; RBC Morphology Normal
[2023-07-22] MEDS: ACETAMINOPHEN 1,000 MG/100 ML BTL 400 MG IVPB ×3 (07:40→20:26)
[2023-07-22] MEDS: MORPHine 4 MG/ML SYR 3 MG IVP (07:40)
[2023-07-22] MEDS: Lactated Ringers 1,000 ML 80 ML IV ×2 (07:41→22:05)
[2023-07-22] MEDS: Pantoprazole 40 MG TABCR PO (07:41)
[2023-07-22] MEDS: Metoprolol CR 25 MG TABCR 75 MG PO (07:41)
--- NOTE | 2023-07-22 11:30 | PHA.REVIEW2 ---
Pharmacy Admission Review Admission Clinical Review Admission Pharmacy Review: Hypomagnesemia (Acute) Acute hypokalemia (Acute) Chronic GERD (Acute) Bushra-rectal abscess (Acute) Hypertension (Acute) Atrial fibrillation (Acute) amoxicillin Allergy (Unknown, Verified 07/21/23 17:41) Skin Rash Penicillins Allergy (Unknown, Verified 07/21/23 17:41) Skin Rash Resuscitation Status Full Code Height 5 ft 4 in Weight 81.647 kg Comments Comments/Follow Ups: Discuss atorvastatin (on home med list but no order) with provider once patient is no longer NPO. Per H+P will have procedure today. Pharmacy Admission Review Renal Dosing Renal Dosing: BUN 12 mg/dL (7-18) 07/22/23 06:18 Creatinine 0.9 mg/dL (0.70-1.30) 07/22/23 06:18 Medications needing adjustments: Reviewed (CrCl 74.81 mL/min) List of meds needing interventions: Current medications are okay Anticoagulation Anticoagulation: Hgb 13.3 g/dL (13.5-17.5) L 07/22/23 06:18 Hct 38.6 % (40.0-50.0) L 07/22/23 06:18 Plt Count 202 10^3/uL (130-400) 07/22/23 06:18 Creatinine 0.9 mg/dL (0.70-1.30) 07/22/23 06:18 DVT Prophylaxis: Reviewed (None at this time due to procedure today) Opiate Usage Evaluate Pain Scale/Pains Meds: Reviewed (PRN morphine - 3 doses given) Scheduled Bowel Reg ordered if on Opiates?: No Relevant Labs Relevant Labs: Sodium 137 mmol/L (136-145) 07/22/23 06:18 Potassium 3.6 mmol/L (3.5-5.1) 07/22/23 06:18 Chloride 102 mmol/L (98-107) 07/22/23 06:18 Magnesium 1.8 mg/dL (1.8-2.4) 07/22/23 06:18 Electrolytes, C-Reactive P, ESR: Reviewed (Hgb decreased from 13.7 to 13.3, glucose 123) Cardiac Review BP, HR, EF%: Reviewed (HR and BP WNL) QTc Review QTc: Reviewed (Last EKG on file was from 9/7/22 with QTc of 430) IV to PO Switch IV Medications: Reviewed (Currently NPO) Home Meds Home Med List reviewed: Intervened Relevent Home Meds Not ordered & why?: Eliquis (on hold per H+P), atorvastatin, ibuprofen (PRN) and methocarbamol (PRN) Based on external fill history, patient takes 20mg of lisinopril daily. It was listed as 5mg daily on home med list. Updated home med list then changed order from 5mg daily to 20mg daily Discuss atorvastatin with provider once patient is no longer NPO Current Meds Current Medication Order Review: Reviewed Pharmacy Antibiotic Review Relevant Labs: WBC 14.36 10^3/uL (4.4-10.8) H 07/22/23 06:18 Temperature 36.5 C Temperature 36.5 C Pharmacy Antibiotic Activity: C/S review and Reviewed, no change Comments: Patient is on ertapenem day 1. Blood cultures are pending. WBC increased from 13.57 to 14.36. Had a temperature of 38 C yesterday at 2205. Comments Comments/Follow Ups: Discuss atorvastatin (on home med list but no order) with provider once patient is no longer NPO. Per H+P will have procedure today.
--- NOTE | 2023-07-22 12:17 | PDOC.CMIN ---
Date of service: 07/22/23 Time of Service: 12:17 Care Management Initial Assmt Initial Assessment REASON FOR HOSPITALIZATION:: Perirectal abscess PREVIOUS FUNCTIONAL STATUS/SOCIAL/FAMILY SUPPORTS:: Kiran lives in [place] with his , Reena. 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 He is independent at baseline. CURRENT FUNCTIONAL STATUS:: Edmundo was lying in bed when CM met with him. His , Reena, was in the room visiting. Edmundo stated that he has been sleeping most of the day, but that his pain is better managed today than it was last night. He is waiting for the MD to take him to the OR for I&D of the abscess. CM discussed post surgical needs at home, including possible HH RN for wound care. Reena stated that there is worker's compensation paperwork being filled out by his employer, as his original injury happened while moving a table at work. She had questions for the surgeon regarding Edmundo's plan of care while hospitalized; CM informed MD, who spoke with her and answered her questions. Per MD, he will likely be discharged home in 24-48 hours, depending on his progress post surgically. CM will continue to follow. ADVANCE DIRECTIVES:: Not of file at [facility]. CM will offer forms. Has patient been provided with info about the portal/API?: Yes Did the patient sign up for the portal?: No CODE STATUS:: Full Code INSURANCE COVERAGE / FINANCIAL ISSUES:: BC/BS CURRENT HOME/COMMUNITY SERVICES/EQUIPMENT:: No current services or equipment. PRIMARY CARE PHYSICIAN:: unknown POTENTIAL DISCHARGE NEEDS:: Follow up appointments PATIENT/FAMILY EDUCATION NEEDS:: Review discharge instructions and limitations, discussion of self care needs including ask me three. ANTICIPATED BARRIERS TO DISCHARGE:: None. TRANSPORTATION:: Via private vehicle by family PLAN:: Anticipate Kiran will return home once medically cleared. He may need new HH RN for wound care upon discharge. His will drive him home via private vehicle. He will follow up with his PCP and discharge plan of care. CM will continue to follow. PFSH All Active Problems (Updated 07/21/23 @ 20:15 by Erlinda Carrillo DO) Hypomagnesemia (Acute) Acute hypokalemia (Acute) Elevated cholesterol (Chronic) Chronic GERD (Acute) Bushra-rectal abscess (Acute) Sciatica (Acute) Lower back pain (Acute) Peritonsillar cellulitis (Acute) Tonsillitis (Acute) Retropharyngeal abscess (Acute) Peritonsillar abscess (Acute) Abscess of tonsil (Acute) Adult supraglottitis (Acute) Traumatic hemo-pneumothorax (Acute) Hypertension (Acute) Atrial fibrillation (Acute) Surgical History S/P skin cancer resection Melanoma x 3 S/P right knee arthroscopy S/P ablation of atrial fibrillation Family History Father Stroke Cancer prostate Brother Diabetes Hypertension Brother Cancer bone cancer Social History Smoking/Tobacco Use Status: Current every day Tobacco Type: cigarettes Smoking packs per day: 0.5 Smoking cigarettes per day: 10.0 Tobacco: How many years used: 30 Quit status: has quit before Counseling given: provider counseling, support medications and counseling >3 minutes Smoking risk assessment performed?: Yes Alcohol Intake: current Alcohol Intake frequency: 0-2 drinks per day Alcohol type: hard liquor Drug use: Never Substance use type: does not use Household members: significant other Housing: house 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 Anticipated Date of Discharge: 07/24/23. Following Provider: Dr. Carrillo.
--- NOTE | 2023-07-22 12:19 | ANES.PREOP_ITS ---
General Info Date of Service Date Performed: 07/22/23 Height: 5 ft 4 in Weight: 81.647 kg Body Mass Index (BMI): 30.9 Surgical Procedure: Operation Date: 07/22/23 11:40 Proposed Procedure Side Surgeon p Excision-Bushra Rectal Abscess Erlinda Carrillo, DO Meds Allergies and Home Medications Allergies Allergy/AdvReac Type Severity Reaction Status Date / Time amoxicillin Allergy Unknown Skin Rash Verified 07/21/23 17:41 Penicillins Allergy Unknown Skin Rash Verified 07/21/23 17:41 Home Medication Medication Instructions Recorded ibuprofen 600 mg tablet 600 mg PO Q6H #30 tabs 08/30/17 apixaban 5 mg tablet 5 mg PO BID Atrial fibrillation 03/22/19 #60 tabs pantoprazole 40 mg tablet,delayed 40 mg PO DAILY 01/10/20 release atorvastatin 40 mg tablet (Lipitor) 40 mg PO DAILY 11/11/22 metoprolol succinate 50 mg 75 mg PO DAILY 11/11/22 tablet,extended release 24 hr (Toprol XL) methocarbamol 500 mg tablet 1,000 mg (2 x 500 mg) PO QHS PRN 07/19/23 back pain #30 tabs lisinopril 20 mg tablet 20 mg PO DAILY 07/22/23 metoprolol succinate 25 mg 25 mg PO DAILY 07/22/23 tablet,extended release 24 hr Current Visit Medications: Current Medications Generic Name Dose Route Start Last Admin Trade Name Freq PRN Reason Stop Dose Admin Ertapenem/Sodium Chloride 1 gm 50 mls @ 100 mls/hr 07/21/23 22:00 07/22/23 02:46 / Sodium Chloride IVPB Infused Q24H MEKA Infusion Ringer's Solution 1,000 mls @ 80 mls/hr 07/21/23 20:15 07/22/23 07:41 IV 80 mls/hr INFUSION MEKA Administration Acetaminophen 1,000 mg in 100 mls @ 400 mls/hr 07/21/23 20:11 07/22/23 07:55 Ofirmev IVPB Infused Q8H PRN PRN Infusion Sodium Chloride 500 mls @ 0 mls/hr 07/22/23 07:45 Saline 500ml Bag IV DIRECTED PRN As Directed IV Miscellaneous Supplies 1 each 07/22/23 07:45 Iv Access IV DIRECTED MEKA Lisinopril 20 mg 07/23/23 08:30 Lisinopril 20 Mg Tab PO DAILY MEKA Metoprolol Succinate 75 mg 07/22/23 08:30 07/22/23 07:41 Metoprolol Cr 25 Mg Tabcr PO 75 mg DAILY MEKA Administration Morphine Sulfate 3 mg 07/21/23 20:11 07/22/23 07:40 Morphine 4 Mg/Ml Syr IVP 3 mg Q1H PRN PRN Administration Ondansetron HCl 4 mg 07/21/23 20:12 Ondansetron 4 Mg/2 Ml Vial IVP Q4H PRN PRN Pantoprazole Sodium 40 mg 07/23/23 07:30 Pantoprazole 40 Mg Tabcr PO DAILY@0730 MEKA Sodium Chloride 0 ml 07/22/23 07:45 Normal Saline Flush 10 Ml Syr IVP PRN PRN PFSH Active Problems Active Problems: Problem Status Onset Code Hypomagnesemia E83.42 Acute hypokalemia E87.6 Elevated cholesterol E78.00 Chronic GERD K21.9 Bushra-rectal abscess K61.1 Sciatica M54.30 Lower back pain M54.50 Peritonsillar cellulitis J36 Tonsillitis J03.90 Retropharyngeal abscess J39.0 Peritonsillar abscess J36 Abscess of tonsil J36 Adult supraglottitis J04.30 Traumatic hemo-pneumothorax S27.2XXA Hypertension I10 Atrial fibrillation I48.91 Surgical History Surgical History S/P skin cancer resection Melanoma x 3 S/P right knee arthroscopy S/P ablation of atrial fibrillation Tobacco Smoking/Tobacco Use Status: Current every day Tobacco Type: cigarettes Smoking packs per day: 0.5 Smoking cigarettes per day: 10.0 Counseling given: provider counseling, support medications and counseling >3 minutes Alcohol Alcohol Intake: current Alcohol intake frequency: 0-2 drinks per day Alcohol type: hard liquor Substance Use Substance use: Never Substance use type: does not use Vital Signs and Lab Results Vital Signs Most Recent Vital Signs in EMR: Most Recent Vital Signs Temp Pulse Resp BP Pulse Ox 36.5 C 82 16 121/85 96 07/22/23 11:16 07/22/23 11:16 07/22/23 11:16 07/22/23 11:16 07/22/23 11:16 Lab Results 07/22/23 06:18 07/22/23 06:18 Blood Type / Crossmatch: 2 No Data to Display Complete Blood Count: 2 White Blood Count 14.36 10^3/uL (4.4-10.8) H 07/22/23 06:18 Red Blood Count 4.02 10^6/uL (4.36-5.78) L 07/22/23 06:18 Hemoglobin 13.3 g/dL (13.5-17.5) L 07/22/23 06:18 Hematocrit 38.6 % (40.0-50.0) L 07/22/23 06:18 Platelet Count 202 10^3/uL (130-400) 07/22/23 06:18 Venous Blood Lactate 1.5 mmol/L (0.6-1.4) H 07/21/23 18:00 Complete Metabolic Panel: 2 Sodium 137 mmol/L (136-145) 07/22/23 06:18 Potassium 3.6 mmol/L (3.5-5.1) 07/22/23 06:18 Chloride 102 mmol/L (98-107) 07/22/23 06:18 Carbon Dioxide 23.4 mmol/L (21.0-32.0) 07/22/23 06:18 BUN 12 mg/dL (7-18) 07/22/23 06:18 Creatinine 0.9 mg/dL (0.70-1.30) 07/22/23 06:18 Est GFR (CKD-EPI 2020) 97.17 (mL/min/1.73m2) 07/22/23 06:18 Magnesium 1.8 mg/dL (1.8-2.4) 07/22/23 06:18 Calcium 8.7 mg/dL (8.5-10.1) 07/22/23 06:18 Albumin 3.4 g/dL (3.4-5.0) 07/21/23 18:00 Glucose 123 mg/dL (74-106) H 07/22/23 06:18 Liver Function Panel: 2 Alanine Aminotransferase (ALT/SGPT) 26 U/L (16-63) 07/21/23 18: 00 Aspartate Amino Transf (AST/SGOT) 12 U/L (15-37) L 07/21/23 18: 00 Coagulation Panel: 2 No Data to Display Cardiac Panel: 2 No Data to Display Arterial Blood Gas: 2 No Data to Display Venous Blood Gas: 2 No Data to Display Pancreas Panel: 2 No Data to Display Thyroid Panel: 2 No Data to Display Infectious Disease: 2 No Data to Display Blood Cultures: 2 No Data to Display Toxicology Panel: 2 No Data to Display Imaging and Studies Imaging and Studies Study information below may be from another EMR and interpreted by another provider. Please see original notes in EMR for more complete details. EKG Summary: 11/12/2021: Exam: Resting ECG Reason for Exam: palpitations, history of atrial fibrillation Patient Location: O HR:66 bpm ECG Measurements Heart Rate 66 AXIS FL 123 P -3 QRSd 87 QRS 10 QT 410 T4 QTc 430 Conclusion Sinus rhythm...normal P axis, V-rate 50- 99 Normal Electrocardiogram Echocardiogram Summary: 04/26/2019: Conclusion Normal left ventricular wall thickness and chamber size. Estimated ejection fraction is 60 to 65%. There are no segmental wall motion abnormalities The left atrium is mildly dilated. The right atrium is top normal in size Right ventricle is normal in size and systolic function. The aortic valve is trileaflet without stenosis or regurgitation Mildly thickened mitral leaflets with mild regurgitation The tricuspid valve is structurally normal. There is trace to mild tricuspid regurgitation The pulmonic valve is not well visualized Estimated right ventricular systolic pressure is 36 mmHg The ascending aorta is mildly dilated measuring 3.7 cm Anesthesia Assessment and Plan Anesthesia History Personal History: No History of Anesthesia Complications Family History: No Family History of Anesthesia Complications Exercise Tolerance Exercise Tolerance: Metabolic Equivalents>4 Cardiac & Pulmonary Exam Cardiac Exam: Normal S1/S2 Heart Sounds Pulmonary Exam: Clear Bilateral Breath Sounds Implantable Cardiac Device Does patient have a Pacemaker or an ICD?: No Airway Exam Known Difficult Airway: No Mallampati Class: 1 Mouth Opening: Normal (> 3cm) Thyromental Distance: Greater than 3 cm Neck Range of Motion: Full ROM Neck Circumference: Normal Teeth Condition: Generalized Poor Dentition ASA Classification ASA Score: ASA 3 Emergency Case?: No NPO Status NPO Status: NPO Clears >2 hours, Solids >8 hours Anesthesia Plan Resuscitation Status: Full Code Anesthesia Technique: General Anesthesia Airway Planned: Endotracheal Tube Monitors Used: Standard Monitors Preoperative Comments:: Prone, patient has not had repeat AAA surveillance screening.
[2023-07-22] MEDS: Lactated Ringers 1,000 ML 100 ML IV (13:50)
[2023-07-22] MEDS: Bupivacaine 0.25% Pres-Free W/EPI 30 ML VIAL (14:43)
[2023-07-22] MEDS: Bupivacaine LIPOSOME/PF 133 MG/10 ML VIAL IJ (14:47)
--- NOTE | 2023-07-22 15:38 | W.PM.OP ---
Date of service: 07/22/23 Time of Service: 15:38 Operative Note Operative Note DATE OF PROCEDURE: 07/22/23 PRE-OP DIAGNOSIS: Perirectal abscess POST-OP DIAGNOSIS: same PROCEDURE: Incision and drainage of abscess SURGEON: Erlinda Carrillo ANESTHESIA TYPE: Local By Surgeon and General LMA/ETT Refer to Anesthesia Record ESTIMATED BLOOD LOSS: 30 PATHOLOGY: other COMPLICATIONS: None Patient was transported to: PACU Patient's condition: stable Procedure Description: Patient presents to the ER with a large supra's enteric abscess perirectal. And is here for incision and drainage. Informed consent is obtained explaining risks and benefits of the procedure including but not limited to: Bleeding, infection, pneumonia, blood clots, anesthesia, need to do daily dressing changes and packing to heal by secondary intent, damage to the sphincters including stenosis or loss of control, recurrent infections, complications from anesthesia and other unpurposeful problems. Patient is brought to the operating room suite and placed in the supine position. All bony surfaces were padded. Patient is placed in the jackknife position. He is prepped and draped in the usual sterile fashion using a Betadine scrub solution. The abscess is at the 11 o'clock position in reverse anatomical position. There is localized with a finder needle. 20 cc of purulent drainage is aspirated and sent for culture. 1/2 inch incision was then made superior to the sphincters within the rectum a large abscess cavity is encountered. It measures 10 x 7 x 8 cm. It has multiple loculations. The septum's are broken up. The abscess is drained and then irrigated with a liter of saline. Curette is used to remove any necrotic tissue. Incision is then also made within the buttock at the 11 o'clock position that is half an inch in size. There is a secondary cavity that is 4 x 2 x 2 cm in size. It does connect with the other cavity. This is curetted and irrigated as well. He is on a apixaban and is hyper inflammatory at this time and the 2 cavities are tightly packed with half-inch plain packing. The bleeding is controlled. Sterile dressings are applied. Patient tolerated the procedure well without complication and transferred to the recovery room in stable condition. This document was created with voice activated software and may contain errors.
--- NOTE | 2023-07-22 16:05 | W.ANESPOSTOP ---
Postoperative Evaluation Date, Time and Location Date Performed: 07/22/23 Time Performed: 16:05 Patient Location: PACU Vital Signs Most Recent Imported Vital Signs: Most Recent Vital Signs Temp Pulse Resp BP Pulse Ox 36.6 C 92 H 13 149/88 H 94 07/22/23 15:47 07/22/23 15:47 07/22/23 15:47 07/22/23 15:47 07/22/23 15:47 Pain Score Most Recent Pain Score: Most Recent Pain Score Pain Level 7 07/22/23 07:40 Assessment Mental Status: Awake (Alert & Oriented to Patient Baseline) Airway and Respiratory Function: Patent airway with normal (patient baseline) respiratory exam Cardiovascular Function: Hemodynamically Stable Hydration Status: Adequately Hydrated Nausea & Vomiting: No Nausea or Vomiting Pain: Pain is tolerable per patient Peripheral Nerve Block: Patient did not receive a nerve block
[2023-07-22] MEDS: Ketorolac 15 MG/ML VIAL IVP ×2 (16:20→20:25)
--- NOTE | 2023-07-22 18:14 | PGE_ITS ---
Date of Service Date of service: 07/22/23 Time of Service: 18:14 Assessment and Plan Assessment and plan (1) Hypertension: Status: Acute (2) Atrial fibrillation: Status: Acute (3) Elevated cholesterol: Status: Chronic (4) Chronic GERD: Status: Acute (5) Bushra-rectal abscess: Status: Acute Assessment and plan: The patient is doing well post-op. Their pain is well controlled. They are having no nausea or vomiting. The pt is not having any chest pain or SOB, productive cough; no calf pain or swelling. The pt is making good urine. The pt pain is adequately controlled. The case was discussed with nursing and patient?s progress reviewed. All of the pt's home medications were addressed and adjusted accordingly for their oral intact status. HEENT: no jaundice. no eye pain/drainage/redness/swelling. Mild sore throat Cardio- NSR no chest pain, BP stable. Pulm: no sob or productive cough. no hemoptysis Incision-packed. No active bleeding. -We will plan dressing change under anesthesia tomorrow. There is quite a large cavity with a significant amount of purulent drainage. I think it would be prudent to keep him in the hospital until least Wednesday order infection control. And we may need to be in the hospital even longer depending on how well he does with pain management and dressing changes. I discussed with the patient and/or there family about the findings in surgery and the pt's progress. We reviewed expectations for progress in the hospital; what the pt could expect for recovery time and length of stay. We discussed the importance of walking and pulmonary toilet to avoid blood clots and pneumonia. Continue current plans for pulmonary toilet, GI and DVT prophylaxis. We shall continue the current plan for pain management as it is at an appropriate level, and working well for the pt. Appropriate measures will be taken for constipation prevention, and this was also reviewed with the pt. The wound care plan was reviewed with nursing as well. see orders (6) Smoker: Status: Acute Assessment and plan: We discussed the importance of good toilet habits to prevent further problems. He does have some pretty extensive hemorrhoids. Which is indicative of chronic straining. Patient states he does have chronic diarrhea and we need to get this under better control. He also has quite a bit of scarring and impacted glands in the rectal area. This can lead to abscesses. He is a smoker. We discussed how smoking induces changes within the skin cells and can lead to hidradenitis and other skin infections. He has had a longstanding history of problems with infections. He has never had MRSA. Cultures are still pending. But I think it is time that he seriously consider smoking cessation. Objective Last Vital Signs Temp 35.7 C L 07/22/23 18:04 Pulse 88 07/22/23 18:04 Resp 20 07/22/23 18:04 BP 147/95 H 07/22/23 18:04 Pulse Ox 97 07/22/23 18:04 Laboratory Results - last 24 hr 07/21/23 07/21/23 07/22/23 18:00 19:56 06:18 WBC 13.57 H 14.36 H RBC 4.09 L 4.02 L Hgb 13.7 13.3 L Hct 39.5 L 38.6 L MCV 97 H 96 H MCH 33.5 H 33.1 H MCHC 34.7 34.5 RDW 12.4 12.5 Plt Count 217 202 MPV 10.9 11.1 H Immature Gran % 0.0 0.6 Neutrophils % 74.0 72.6 Band Neutrophils % 1 Lymphocytes % 12.0 11.9 Monocytes % 11.0 13.9 Eosinophils % 2.0 0.8 Basophils % 0.0 0.2 Nucleated RBC % 0.0 0.0 Absolute Neutrophils 10.18 H 10.43 H Absolute Lymphocytes 1.63 1.71 Absolute Monocytes 1.49 H 2.00 H Absolute Eosinophils 0.27 0.11 Absolute Basophils 0.00 0.03 RBC Morphology Normal Normal Sodium 139 137 Potassium 3.1 L 3.6 Chloride 102 102 Carbon Dioxide 27.6 23.4 Anion Gap 9.4 11.6 H BUN 13 12 Creatinine 1.0 0.9 Est GFR (CKD-EPI 2020) 85.63 97.17 Glucose 104 123 H Calcium 9.0 8.7 Magnesium 1.7 L 1.8 Total Bilirubin 0.5 AST 12 L ALT 26 Alkaline Phosphatase 66 Total Protein 7.5 Albumin 3.4 Urine Color Yellow Urine Clarity Clear Urine pH 6.0 Ur Specific [place] 1.010 Urine Protein 30 H Urine Ketones Negative Urine Blood Trace-intact H Urine Nitrite Negative Urine Bilirubin Negative Urine Urobilinogen 1.0 H Ur Leukocyte Esterase Negative Urine RBC 0-2 Urine WBC 0-2 Ur Epithelial Cells Rare Urine Crystals Negative Urine Bacteria Negative Urine Casts Negative Urine Mucus Trace Ur Culture Indicated? No Urine Glucose Negative PAWSS Have you Been Recently Intoxicated or Drunk Within the Last 30 days?: No Have you Ever Experienced Previous Episodes of Alcohol Withdrawal?: No Have you ever Experienced Withdrawal Seizures?: No Have you ever Experienced Delirium Tremens(DT)s?: No Have you ever undergone Alcohol Rehabilitation Treatment (i.e, inpt ot outpatient treatment programs)?: No Have you ever Experienced Blackouts?: No Have you ever Combined Alcohol with other Downers within the last 90 days?: No Have you ever Combined Alcohol with any other Substance of Abuse during the last 90 days?: No Positive Blood Alcohol level on Presentation? [PCS.BAL]: No Evidence of Increased Autonomic Activity (i.e. HR>120, tremor, sweating, ag itation, nausea)?: No Result: 0 Time Spent with Patient Time Spent with Patient: <25 minutes Time was spent: preparing to see the patient(eg.review tests), obtaining and/or reviewing separately otained hiistory, ordering medications,tests, procedures, referring, communicating with other health housekeeper caregiver, indepentently interpreting results, counseling the patient and care coordination
[2023-07-22] MEDS: Docusate Sodium 100 MG CAP PO (20:25)
[2023-07-22] MEDS: ERTAPENEM 1 GM in Normal Saline 50 ML IVPB (22:01)
[2023-07-23] VITALS (13 sets, daily range): BP systolic 112–178; BP diastolic 67–106; PULSE 68–84; RESP 16–21; TEMP 34.6–36.9; O2SAT 97–99; BMI 30.9
[2023-07-23] MEDS: Ketorolac 15 MG/ML VIAL IVP ×4 (04:18→21:59)
[2023-07-23] MEDS: ACETAMINOPHEN 1,000 MG/100 ML BTL 400 MG IVPB ×3 (04:19→16:24)
[2023-07-23] MEDS: Metoprolol CR 25 MG TABCR 75 MG PO (08:57)
[2023-07-23] MEDS: Lisinopril 20 MG TAB PO (08:57)
[2023-07-23] MEDS: Lactated Ringers 1,000 ML 80 ML IV (10:40)
--- NOTE | 2023-07-23 13:16 | W.ANESPRE ---
General Info Date of Service Date Performed: 07/23/23 Height: 5 ft 4 in Weight: 81.647 kg Body Mass Index (BMI): 30.9 Surgical Procedure: Operation Date: 07/22/23 11:40 Proposed Procedure Side Surgeon p Excision-Bushra Rectal Abscess Erlinda Carrillo DO Actual Procedure Side Surgeon p Excision-Bushra Rectal Abscess Not Applicable Erlinda Carrillo DO Pre-Op Diagnosis Post-Op Diagnosis Bushra-rectal abscess Bushra-rectal abscess Operation Date: 07/23/23 13:25 Proposed Procedure Side Surgeon p Excision-Bushra Rectal Abscess Erlinda Carrillo DO Meds Allergies and Home Medications Allergies Allergy/AdvReac Type Severity Reaction Status Date / Time amoxicillin Allergy Unknown Skin Rash Verified 07/21/23 17:41 Penicillins Allergy Unknown Skin Rash Verified 07/21/23 17:41 Home Medication Medication Instructions Recorded ibuprofen 600 mg tablet 600 mg PO Q6H #30 tabs 08/30/17 apixaban 5 mg tablet 5 mg PO BID Atrial fibrillation 03/22/19 #60 tabs pantoprazole 40 mg tablet,delayed 40 mg PO DAILY 01/10/20 release atorvastatin 40 mg tablet (Lipitor) 40 mg PO DAILY 11/11/22 metoprolol succinate 50 mg 75 mg PO DAILY 11/11/22 tablet,extended release 24 hr (Toprol XL) methocarbamol 500 mg tablet 1,000 mg (2 x 500 mg) PO QHS PRN 07/19/23 back pain #30 tabs lisinopril 20 mg tablet 20 mg PO DAILY 07/22/23 metoprolol succinate 25 mg 25 mg PO DAILY 07/22/23 tablet,extended release 24 hr Current Visit Medications: Current Medications Generic Name Dose Route Start Last Admin Trade Name Freq PRN Reason Stop Dose Admin Ertapenem/Sodium Chloride 1 gm 50 mls @ 100 mls/hr 07/21/23 22:00 07/22/23 22:55 / Sodium Chloride IVPB Infused Q24H MEKA Infusion Ringer's Solution 1,000 mls @ 80 mls/hr 07/21/23 20:15 07/23/23 10:40 IV 80 mls/hr INFUSION MEKA Administration Acetaminophen 1,000 mg in 100 mls @ 400 mls/hr 07/22/23 16:00 07/23/23 12:12 Ofirmev IVPB Infused Q6H MEKA Infusion IV Miscellaneous Supplies 1 each 07/22/23 07:45 Iv Access IV DIRECTED [facility] Ketorolac Tromethamine 15 mg 07/22/23 16:00 07/23/23 10:44 Ketorolac 15 Mg/Ml Vial IVP 07/27/23 15:59 15 mg Q6H MEKA Administration Lisinopril 20 mg 07/23/23 08:30 07/23/23 08:57 Lisinopril 20 Mg Tab PO 20 mg DAILY [facility] Administration Metaxalone 800 mg 07/22/23 16:00 07/23/23 12:13 Metaxalone 800 Mg Tab PO Not Given QID [facility] Metoprolol Succinate 75 mg 07/22/23 08:30 07/23/23 08:57 Metoprolol Cr 25 Mg Tabcr PO 75 mg DAILY [facility] Administration Morphine Sulfate 3 mg 07/21/23 20:11 07/22/23 07:40 Morphine 4 Mg/Ml Syr IVP 3 mg Q1H PRN PRN Administration Ondansetron HCl 4 mg 07/21/23 20:12 Ondansetron 4 Mg/2 Ml Vial IVP Q4H PRN PRN Oxycodone HCl 5 mg 07/22/23 15:30 Oxycodone 5 Mg Tab PO Q4H PRN PRN Pantoprazole Sodium 40 mg 07/23/23 07:30 07/23/23 08:59 Pantoprazole 40 Mg Tabcr PO Not Given DAILY@0730 [facility] PFSH Active Problems Active Problems: Problem Status Onset Code Smoker F17.200 Hypomagnesemia E83.42 Acute hypokalemia E87.6 Elevated cholesterol E78.00 Chronic GERD K21.9 Bushra-rectal abscess K61.1 Sciatica M54.30 Lower back pain M54.50 Traumatic hemo-pneumothorax S27.2XXA Hypertension I10 Atrial fibrillation I48.91 Medical History Medical History (Updated 07/22/23 @ 18:15 by Erlinda Carrillo DO) Retropharyngeal abscess Peritonsillar cellulitis Tonsillitis Adult supraglottitis Peritonsillar abscess Abscess of tonsil Surgical History Surgical History S/P skin cancer resection Melanoma x 3 S/P right knee arthroscopy S/P ablation of atrial fibrillation Tobacco Smoking/Tobacco Use Status: Current every day Tobacco Type: cigarettes Smoking packs per day: 0.5 Smoking cigarettes per day: 10.0 Counseling given: provider counseling, support medications and counseling >3 minutes Alcohol Alcohol Intake: current Alcohol intake frequency: 0-2 drinks per day Alcohol type: hard liquor Substance Use Substance use: Never Substance use type: does not use Vital Signs and Lab Results Vital Signs Most Recent Vital Signs in EMR: Most Recent Vital Signs Temp Pulse Resp BP Pulse Ox 36.9 C 68 18 147/92 H 97 07/23/23 07:48 07/23/23 07:48 07/23/23 07:48 07/23/23 07:48 07/23/23 07:48 Lab Results 07/22/23 06:18 07/22/23 06:18 Blood Type / Crossmatch: No Data to Display Complete Blood Count: White Blood Count 14.36 10^3/uL (4.4-10.8) H 07/22/23 06:18 Red Blood Count 4.02 10^6/uL (4.36-5.78) L 07/22/23 06:18 Hemoglobin 13.3 g/dL (13.5-17.5) L 07/22/23 06:18 Hematocrit 38.6 % (40.0-50.0) L 07/22/23 06:18 Platelet Count 202 10^3/uL (130-400) 07/22/23 06:18 Venous Blood Lactate 1.5 mmol/L (0.6-1.4) H 07/21/23 18:00 Complete Metabolic Panel: Sodium 137 mmol/L (136-145) 07/22/23 06:18 Potassium 3.6 mmol/L (3.5-5.1) 07/22/23 06:18 Chloride 102 mmol/L (98-107) 07/22/23 06:18 Carbon Dioxide 23.4 mmol/L (21.0-32.0) 07/22/23 06:18 BUN 12 mg/dL (7-18) 07/22/23 06:18 Creatinine 0.9 mg/dL (0.70-1.30) 07/22/23 06:18 Est GFR (CKD-EPI 2020) 97.17 (mL/min/1.73m2) 07/22/23 06:18 Magnesium 1.8 mg/dL (1.8-2.4) 07/22/23 06:18 Calcium 8.7 mg/dL (8.5-10.1) 07/22/23 06:18 Albumin 3.4 g/dL (3.4-5.0) 07/21/23 18:00 Glucose 123 mg/dL (74-106) H 07/22/23 06:18 Liver Function Panel: Alanine Aminotransferase (ALT/SGPT) 26 U/L (16-63) 07/21/23 18:00 Aspartate Amino Transf (AST/SGOT) 12 U/L (15-37) L 07/21/23 18:00 Coagulation Panel: No Data to Display Cardiac Panel: No Data to Display Arterial Blood Gas: No Data to Display Venous Blood Gas: No Data to Display Pancreas Panel: No Data to Display Thyroid Panel: No Data to Display Infectious Disease: No Data to Display Blood Cultures: No Data to Display Toxicology Panel: No Data to Display Imaging and Studies Imaging and Studies Study information below may be from another EMR and interpreted by another provider. Please see original notes in EMR for more complete details. EKG Summary: 11/12/2021: Exam: Resting ECG Reason for Exam: palpitations, history of atrial fibrillation Patient Location: O HR:66 bpm ECG Measurements Heart Rate 66 AXIS MT 123 P -3 QRSd 87 QRS 10 QT 410 T4 QTc 430 Conclusion Sinus rhythm...normal P axis, V-rate 50- 99 Normal Electrocardiogram Echocardiogram Summary: 04/26/2019: Conclusion Normal left ventricular wall thickness and chamber size. Estimated ejection fraction is 60 to 65%. There are no segmental wall motion abnormalities The left atrium is mildly dilated. The right atrium is top normal in size Right ventricle is normal in size and systolic function. The aortic valve is trileaflet without stenosis or regurgitation Mildly thickened mitral leaflets with mild regurgitation The tricuspid valve is structurally normal. There is trace to mild tricuspid regurgitation The pulmonic valve is not well visualized Estimated right ventricular systolic pressure is 36 mmHg The ascending aorta is mildly dilated measuring 3.7 cm Anesthesia Assessment and Plan Anesthesia History Personal History: No History of Anesthesia Complications Family History: No Family History of Anesthesia Complications Exercise Tolerance Exercise Tolerance: Metabolic Equivalents>4 Pertinent Negatives Pertinent Negatives: No Symptoms of GERD Cardiac & Pulmonary Exam Cardiac Exam: Normal S1/S2 Heart Sounds Pulmonary Exam: Clear Bilateral Breath Sounds Implantable Cardiac Device Does patient have a Pacemaker or an ICD?: No Airway Exam Known Difficult Airway: No Mallampati Class: 1 Mouth Opening: Normal (> 3cm) Thyromental Distance: Greater than 3 cm Neck Range of Motion: Full ROM Neck Circumference: Normal Teeth Condition: Generalized Poor Dentition ASA Classification ASA Score: ASA 3 Emergency Case?: No NPO Status NPO Status: NPO Clears >2 hours, Solids >8 hours Anesthesia Plan Resuscitation Status: Full Code Anesthesia Technique: General Anesthesia Airway Planned: Natural Airway Monitors Used: Standard Monitors
--- NOTE | 2023-07-23 14:42 | W.PM.OP ---
Date of service: 07/23/23 Time of Service: 14:42 Operative Note Operative Note DATE OF PROCEDURE: 07/22/23 PRE-OP DIAGNOSIS: Perirectal abscess POST-OP DIAGNOSIS: same SURGEON: Erlinda Carrillo ANESTHESIA TYPE: General:No Airway Refer to Anesthesia Record ESTIMATED BLOOD LOSS: 0 PATHOLOGY: none sent COMPLICATIONS: None Patient was transported to: PACU Patient's condition: stable Implants: Incision and drainage of abscess Procedure Description: Patient has a history of a perirectal abscess and underwent an I&D on 07/21. He is here today for second look and dressing change under anesthesia. Informed consent is obtained explaining risks and benefits of the procedure include not limited to: Bleeding, infection, complications from anesthesia, and other infrequent pulm complications. Patient is brought to the operative suite and placed in left lateral decubitus position. Anesthesia is administered per the department of anesthesia. The old packing is in room removed. The external wound at the 5 o'clock position is clean. Again its about 3 x 3 x 2 inches. It is difficult to visualize the internal wound. There is no gross exudate. And this cavity is about 8 x 6 x 4 inches. The wounds are irrigated. Again there is no bleeding and there is no purulent drainage. There is no significant necrotic debris. They are repacked. Patient Toller procedure well without complication transferred recovery in stable condition. Continue antibiotics today. Will set up home care for Wednesday. Plan discharge tomorrow
--- NOTE | 2023-07-23 14:45 | PDOC.HHF2F_ITS ---
Home Health Referral Home Health Orders Clinical synopsis of why skilled professionals are needed: Perirectal abscess. Medical diagnosis necessitation home health referral: Patient needs help with packing and dressing changes Registered Nurse: Check all that apply Assess wound for signs and symptoms of infection, instruct on wound care and/or provide skilled wound care consisting of: Packing of 2 perirectal wounds. Internal and external perianal wounds. Home Bound Status Patient has a condition such that leaving home is medically contraindicated (Describe): Pain and infection. Patient cannot drive currently. Describe why leaving home would require a considerable and taxing effort: Side effects from pain medication (sedation/drowsiness) and Requires frequent rest periods Encounter Date and Reason: I certify that a FTF encounter for this patient was performed on July 24, 2023 and that such encounter was related to the primary reason the patient requires home health services. The encounter was conducted in the following manner: * By me as the certifying physician, SPIRAL WINDING MACHINE HELPER, PA or * By an inpatient physician, SPIRAL WINDING MACHINE HELPER or PA during an inpatient stay who communicated findings to me, Certification And Authentication I certify that I composed the above information based on my clinical judgment relating to this patient's medical condition and, if applicable, clinical findings communicated to me by the NPP or inpatient physician who performed the FTF encounter. Name of Provider that will be monitoring home health services: Erlinda Carrillo
--- NOTE | 2023-07-23 15:01 | W.ANESPOSTOP ---
Postoperative Evaluation Date, Time and Location Date Performed: 07/23/23 Time Performed: 15:01 Patient Location: PACU Vital Signs Most Recent Imported Vital Signs: Most Recent Vital Signs Temp Pulse Resp BP Pulse Ox 36.6 C 84 19 146/84 H 98 07/23/23 14:48 07/23/23 14:48 07/23/23 14:48 07/23/23 14:48 07/23/23 14:38 Most Recent Vital Signs Temp Pulse Resp BP Pulse Ox 36.6 C 92 H 13 149/88 H 94 07/22/23 15:47 07/22/23 15:47 07/22/23 15:47 07/22/23 15:47 07/22/23 15:47 Pain Score Most Recent Pain Score: Most Recent Pain Score Pain Level 0 07/23/23 14:48 Assessment Mental Status: Awake (Alert & Oriented to Patient Baseline) Airway and Respiratory Function: Patent airway with normal (patient baseline) respiratory exam Cardiovascular Function: Hemodynamically Stable Hydration Status: Adequately Hydrated Nausea & Vomiting: No Nausea or Vomiting Pain: Pt. Denies Any Pain Peripheral Nerve Block: Patient did not receive a nerve block
--- NOTE | 2023-07-23 16:58 | PDOC.CMPRO ---
Date of service: 07/23/23 Time of Service: 16:58 Care Management Progress Note Progress Note Text Progress Note Text: S/O: Edmundo was sitting up in bed, waiting to return to the OR when CM met with him. His , Reena, was in the room visiting. Edmundo stated that he is feeling much better today. Reena asked about dressing changes; CM reiterated that HH nursing would go out for wound care, and that they would likely expect to teach a family member. Reena stated that she is unsure that she would be able to complete the packing/dressing needed. Per MD, Edmundo's packing/dressing is extensive. stated that he will likely return home tomorrow, after his dressing change. CM will continue to follow. A: Kiran is a 63 year old male admitted to [facility] on 07/21/23 with a perirectal abscess. P: Anticipate Kiran will return home once medically cleared with new orders for HH RN for wound care upon discharge. His will drive him home via private vehicle. He will follow up with his PCP and discharge plan of care. CM will continue to follow. SDOH(Care Management) Screening Will the Patient Participate in the Screening?: Declined to provide
[2023-07-23] MEDS: Acetaminophen 500 MG TAB 1000 MG PO (21:57)
[2023-07-23] MEDS: ERTAPENEM 1 GM in Normal Saline 50 ML IVPB (21:59)
--- NOTE | 2023-07-23 22:03 | W.PM.PROGNOT ---
Date of Service Date of service: 07/23/23 Time of Service: 16:00 Assessment and Plan Assessment and plan (1) Hypertension: Status: Acute (2) Atrial fibrillation: Status: Acute (3) Elevated cholesterol: Status: Chronic (4) Chronic GERD: Status: Acute (5) Bushra-rectal abscess: Status: Acute (6) Lower back pain: Status: Acute (7) Smoker: Status: Acute Subjective Subjective Interval history since last seen: Pt is doing well. no headaches. No CP or SOB. no productive cough. no dysuria. no leg pain or swelling. He has urinated and is moving his bowels. He did well w/ the dressing change today. see op notes he should go home on abx to make a full 7 days worth. home health will come on Wednesday to dressing changes. He does have x2 wounds that need to be packed- an internal and external. His doesn't think she can pack the internal cavity- which is still quite large. We may just need to do sitz baths for this wound. -wbc was still high and [facility] Briggs continue off adnticoags for another week adn will re-eval in office. F/u in surgery clinic next week. Objective Last Vital Signs Temp 35.2 C L 07/23/23 19:19 Pulse 77 07/23/23 19:19 Resp 18 07/23/23 19:19 BP 138/93 H 07/23/23 19:19 Pulse Ox 98 07/23/23 19:19 PAWSS Have you Been Recently Intoxicated or Drunk Within the Last 30 days?: No Have you Ever Experienced Previous Episodes of Alcohol Withdrawal?: No Have you ever Experienced Withdrawal Seizures?: No Have you ever Experienced Delirium Tremens(DT)s?: No Have you ever undergone Alcohol Rehabilitation Treatment (i.e, inpt ot outpatient treatment programs)?: No Have you ever Experienced Blackouts?: No Have you ever Combined Alcohol with other Downers within the last 90 days?: No Have you ever Combined Alcohol with any other Substance of Abuse during the last 90 days?: No Positive Blood Alcohol level on Presentation? [PCS.BAL]: No Evidence of Increased Autonomic Activity (i.e. HR>120, tremor, sweating, agitation, nausea)?: No Result: 0 Time Spent with Patient Time Spent with Patient: 25-34 minutes Time was spent: preparing to see the patient(eg.review tests), obtaining and/or reviewing separately otained hiistory, ordering medications,tests, procedures, referring, communicating with other health care mgr, indepentently interpreting results, counseling the patient and care coordination
[2023-07-24 02:26] VITALS: BP 166/96; PULSE 78; RESP 18; TEMP 36.2; O2SAT 99
[2023-07-24] MEDS: Acetaminophen 500 MG TAB 1000 MG PO ×2 (04:10→09:56)
[2023-07-24] MEDS: Ketorolac 15 MG/ML VIAL IVP ×2 (04:10→10:05)
[2023-07-24 06:37] LABS: Abs Immature Grans 0.08 10^3/uL (0.0-0.06); Absolute Basophil Count 0.04 10^3/uL (0.0-0.2); Absolute Eosinophil Count 0.38 10^3/uL (0.0-0.7); Absolute Lymphocyte Count 2.76 10^3/uL (1.2-3.4); Absolute Monocyte Count 1.32 10^3/uL (0.1-0.8); Basophils % 0.3 %; HCT 35.8 % (40.0-50.0); HGB 12.2 g/dL (13.5-17.5); Immature Grans % 0.6 %; Lymphocytes % 21.9 %; MCH 33.2 pg (27.0-33.0); MCHC 34.1 % (32.0-36.0); MCV 97 fL (80-95); MPV 11.4 fL (8.0-11.0); Monocytes % 10.5 %; Neutrophils % 63.7 %; Platelet Count 205 10^3/uL (130-400); RBC 3.68 10^6/uL (4.36-5.78); RDW 12.6 % (11.8-14.1); RDW-SD 45.8 fL; WBC 12.58 10^3/uL (4.4-10.8)
[2023-07-24 06:48] LABS: Absolute Neutrophil Count 8.01 10^3/uL (1.2-6.7)
[2023-07-24 06:50] LABS: C-Reactive Protein 10.85 mg/dL (<or=0.5)
[2023-07-24 07:23] VITALS: BP 161/89; PULSE 60; RESP 18; TEMP 34.7; O2SAT 98
[2023-07-24] MEDS: Lisinopril 20 MG TAB PO (07:27)
[2023-07-24] MEDS: Metoprolol CR 25 MG TABCR 75 MG PO (07:27)
[2023-07-24] MEDS: Pantoprazole 40 MG TABCR PO (07:27)
[2023-07-24] MEDS: oxyCODONE 5 MG TAB PO (07:29)
[2023-07-24] MEDS: Normal Saline Flush 10 ML SYR IVP (10:06)
--- NOTE | 2023-07-24 13:11 | W.PM.DS.N ---
Date of service: 07/24/23 Time of Service: 12:30 DS: Diagnosis Discharge Diagnosis (1) Hypertension: Status: Acute (2) Atrial fibrillation: Status: Acute (3) Elevated cholesterol: Status: Chronic (4) Chronic GERD: Status: Acute (5) Bushra-rectal abscess: Status: Acute Asessment and Plan: Drained surgically. Patient completed 3 days of IV antibiotics. Patient to be discharged home. Packing to be removed by visiting nurse tomorrow. (6) Lower back pain: Status: Acute (7) Smoker: Status: Acute Discharge Plan Disposition Patient Disposition: Home Condition: Stable Condition: Improving Discharge Details Reason For Visit: Perirectal Abscess Admit Date/Time: 07/21/23 19:41 Admit Provider: Erlinda Carrillo Attending Provider: Erlinda Carrillo Primary Care Provider: Yasmani Olivares [facility] Course Hospital Course: 63-year-old man presented to the hospital with a perirectal abscess. He was placed on ertapenem. He underwent operative drainage. He had a second?look procedure postop day 1 with another washout and replacing of the packing under anesthesia. On the third day he had packing replaced at the bedside. On hospital day 3 he was ready for discharge home and had completed 3 days of IV antibiotics. Home health/visiting nurse was set up to remove the packing. Home Meds and New Rx's Prescriptions: No Action pantoprazole 40 mg tablet,delayed release (DR/EC) 40 mg PO DAILY atorvastatin [Lipitor] 40 mg tablet 40 mg PO DAILY ibuprofen 600 MG tablet 600 mg PO Q6H Qty: 30 0RF metoprolol succinate [Toprol XL] 50 mg tablet extended release 24 hr 75 mg PO DAILY metoprolol succinate 25 mg tablet extended release 24 hr 25 mg PO DAILY lisinopril 20 mg tablet 20 mg PO DAILY apixaban 5 mg tablet 5 mg PO BID Qty: 60 0RF methocarbamol 500 mg tablet 1,000 mg PO QHS PRN (Reason: back pain) Qty: 30 0RF Discharge Instructions Additional Instructions: PACKING: The packing from the wounds is to be removed on Wednesday. The packing from the outside wound can be replaced 1 time by the visiting nurse. Remove that packing on Wednesday and no more packing should be performed. The interior(within the rectum) packing should not be replaced after being removed on [place]. DRAINAGE: There will probably be some drainage from your wounds for a week or 2. You can use a woman's absorption pad in your underwear to collect this drainage. The wounds can get wet in a shower or a bath. They do not need to be kept covered or sterile. SITZ BATHS: At least twice a day take a 26-46-rclkyy sitz bath. 3-4 inches of very hot water (do not burn yourself) and soak your bottom in this. PAIN: Pain is not expected. Tylenol should be able to take care of any mild discomfort. ANTIBIOTICS: You have completed 3 days of IV antibiotics. No more antibiotics are needed. HOME MEDICATIONS: Restart and take all of your usual home medications starting on Wednesday. This includes your anticoagulation (blood thinner). ACTIVITY: As tolerated. There are no restrictions. RETURN TO WORK: When you feel up to it. FOLLOW-UP: Schedule follow-up appointment with Dr. Carrillo in 2 weeks. If you need to be seen sooner for any problem do not hesitate to call us. PROBLEMS: If there is any problem or concern or worry, please reach out to us. Activity:: Activity as Tolerated Equipment/Supplies:: ABD pads x10 Diet:: As Tolerated DS: Summary Time Spent with Patient providing and/or coordinating discharge services: Greater than 30 minutes Status at Discharge Functional status at discharge: independent ambulation Overall status at discharge: patient is progressing back to baseline Mental Status: mental status grossly normal Speech and Movement: speech and movement normal Mood: congruent mood Affect: normal affect Quality:SDOH Health Related Social Needs: No Data to Display Exam Narrative Exam Narrative: Subjective: He has no complaints at the bedside. He denies any pain. He has been having bowel function and bowel movements and is able to ambulate without discomfort. He has had no fevers overnight. He is excited about the idea of going home. General: Nontoxic, comfortable and interactive. Neuro: Alert and oriented x 3 Psych: Good mood and affect Extremities: Free range of motion x 4 Perineum/perianal region: Packing intact and hanging out of the anus. A couple centimeters to the side of the anus is a separate incision that is wide open and packing is also hanging from it. This packing was changed this morning by nursing staff. There is no erythema or obvious induration. The discharge from the wounds is serous and not purulent. Psych Mental Status: mental status grossly normal Speech and Movement: speech and movement normal Mood: congruent mood Affect: normal affect DS: Data Vitals/I&O Vitals and I&O: Vital Signs Temperature 94.5 F L 07/24/23 07:23 Temperature Source Tympanic 07/24/23 07:23 Pulse 60 07/24/23 07:23 Pulse Rhythm Regular 07/24/23 07:23 Respiratory Rate 18 07/24/23 07:23 Respiratory Effort Normal 07/24/23 07:23 Respiratory Depth Normal 07/24/23 07:23 Respiratory Pattern Normal 07/24/23 07:23 Blood Pressure 161/89 H 07/24/23 07:23 Blood Pressure Mean 113 07/21/23 19:46 Blood Pressure Position Sitting 07/21/23 20:34 Pulse Oximetry 98 07/24/23 07:23 Respiratory End-tidal CO2 27 07/23/23 14:48 Oxygen Delivery Method Room Air 07/24/23 07:23 Oxygen Flow Rate 0 07/24/23 07:23 Pain Level 2 07/24/23 07:23 Comment 152/104 autocuff 07/23/23 16:12 Intake & Output 07/23/23 07/24/23 07/24/23 23:59 11:59 23:59 Intake Total 1750 / 2850 620 / 620 Balance 1750 / 2050 620 / 620 Weight 180 lb 180 lb 12.465 oz Intake: IV 1450 / 2550 60 / 60 Oral 300 / 300 560 / 560 Other: Urine Color Yellow Urine Appearance Clear Clear Urine Odor Normal Comment voids independently in toilet pt had a very large void at this time. in the toilet unmeasured. Stool Size Large Moderate Stool Characteristics Brown Liquid Brown Emesis Description None Voiding Methods Toilet Toilet Toilet Data Completed and Pending Labs on day of discharge: Labs from last 24 hours 07/24/23 06:25 WBC 12.58 H RBC 3.68 L Hgb 12.2 L Hct 35.8 L MCV 97 H MCH 33.2 H MCHC 34.1 RDW 12.6 Plt Count 205 MPV 11.4 H Immature Gran % 0.6 Neutrophils % 63.7 Lymphocytes % 21.9 Monocytes % 10.5 Eosinophils % 3.0 Basophils % 0.3 Nucleated RBC % 0.0 Absolute Neutrophils 8.01 H Absolute Lymphocytes 2.76 Absolute Monocytes 1.32 H Absolute Eosinophils 0.38 Absolute Basophils 0.04 C-Reactive Protein 10.85 H 07/22/23 14:25 Perirectal Anaerobic Culture - Pending Preliminary micro results at discharge 07/22/23 14:25 Surgical Culture - Preliminary Perirectal Gram Positive Xiao,Mixed Gram Negative Xiao,Mixed 07/21/23 18:00 Blood Culture - Preliminary Blood NO GROWTH 48 HOURS 07/21/23 18:37 Blood Culture - Preliminary Blood NO GROWTH 48 HOURS 07/22/23 14:25 Anaerobic Culture - Pending Perirectal PFSH All Active Problems (Updated 07/24/23 @ 13:25 by Richie Oconnor MD) Smoker (Acute) Hypomagnesemia (Acute) Acute hypokalemia (Acute) Elevated cholesterol (Chronic) Chronic GERD (Acute) Bushra-rectal abscess (Acute) Sciatica (Acute) Lower back pain (Acute) Traumatic hemo-pneumothorax (Acute) Hypertension (Acute) Atrial fibrillation (Acute) Medical History (Updated 07/24/23 @ 13:25 by Richie Oconnor MD) Retropharyngeal abscess Peritonsillar cellulitis Tonsillitis Adult supraglottitis Peritonsillar abscess Abscess of tonsil Surgical History S/P skin cancer resection Melanoma x 3 S/P right knee arthroscopy S/P ablation of atrial fibrillation Family History Father Stroke Cancer prostate Brother Diabetes Hypertension Brother Cancer bone cancer Social History Smoking/Tobacco Use Status: Current every day Tobacco Type: cigarettes Smoking packs per day: 0.5 Smoking cigarettes per day: 10.0 Tobacco: How many years used: 30 Quit status: has quit before Counseling given: provider counseling, support medications and counseling >3 minutes Smoking risk assessment performed?: Yes Alcohol Intake: current Alcohol Intake frequency: 0-2 drinks per day Alcohol type: hard liquor Drug use: Never Substance use type: does not use Household members: significant other Housing: house 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
--- NOTE | 2023-07-24 15:52 | PDOC.CMDIS ---
Date of service: 07/24/23 Time of Service: 15:52 LACE Index Scoring Tool Questions: Length of Stay (in days): 3 Was the patient admitted via the E.D.?: Yes Comorbidities: Any Tumor E.D. Visits: 2 Answers: Total Score: 10 Risk of Readmission: High Risk Care Management Discharge Plan Reason for Hospitalization: Perirectal abscess Discharge Plan: Edmundo will be discharged home with his . New home health orders were written for daily dressing changes with packing, however the local [facility] ([facility] does not have a nurse on tomorrow to see him. This was communicated to Dr. Oconnor who recommended the remove the packing tomorrow and just leave it out. Edmundo will follow the plan to take sitz baths. [facility] was notified of the change in plan. Patient/Family Education Needs: Review discharge instructions and limitations, wound care, discussion of self care needs including ask me three. Services Needed at Discharge: Home Health Care Services SDOH Health Related Social Needs: No Data to Display
== END 2023-07-24 16:21 | disposition home or self-care (01) | DRG 346 ==
LOC: ER 19:43 → MS 07-22 07:44
PROVIDERS: Admitting Provider Surgery; Emergency Provider Registered Nurse Emergency; PCP Family Medicine; Visit Provider Surgery
PROC: 0D9P0ZZ Drainage of Rectum, Open Approach (ICD-10-PCS; CPT 46040; principal; 2023-07-22 11:30)
PROC: 2Y43X5Z Packing of Anorectal Region using Packing Material (ICD-10-PCS; CPT 46040; principal; 2023-07-23 13:15)
DX: K61.1 Rectal abscess (principal); I10 Essential (primary) hypertension; I48.0 Paroxysmal atrial fibrillation; E78.00 Pure hypercholesterolemia, unspecified; K21.9 Gastro-esophageal reflux disease without esophagitis; E87.6 Hypokalemia; E83.42 Hypomagnesemia; M54.50 Low back pain, unspecified; F17.210 Nicotine dependence, cigarettes, uncomplicated; Z79.01 Long term (current) use of anticoagulants
CPT/HCPCS: 46040; 15852; 00123; 36415; 80048; 80053; 87040; 96365; 96375; 99285; 72193; 81003; 81015; 83605; 83735; 85025; 86140; 87070; 87075; 87205; C9290; J0131; J1100; J1335; J1805; J1836; J1885; J2250; J2270; J2371; J2405; J2704; J3010; J3490

== ENCOUNTER 2023-11-10 08:38 | Outpatient (CLI) | payer BC, SELFPAY ==
--- NOTE | 2023-11-10 08:30 | RT.EKG_ITS ---
APPROVED REPORT Exam: Resting ECG Reason for Exam: afib Patient Location: O HR:89 bpm ECG Measurements Heart Rate 89 AXIS NM [id number] P [id number] QRSd 91 QRS 10 QT 353 T 12 QTc 430 Conclusion Atrial fibrillation...V-rate 62-115, irreg A-activity Baseline wander in lead(s) V1
== END 2023-11-10 08:39 | disposition home or self-care (01) ==
LOC: DI.CARD 08:39
PROVIDERS: PCP Family Medicine; Visit Provider Internal Medicine Cardiovascular Disease
DX: I48.91 Unspecified atrial fibrillation (principal)
CPT/HCPCS: 93010

== ENCOUNTER 2024-03-20 14:54 | Emergency (ER) | payer OTHER, SELFPAY ==
[2024-03-20 15:06] VITALS: BP 180/124; PULSE 85; RESP 14; TEMP 36.8; O2SAT 95
[2024-03-20] MEDS: Lidocaine 1% Multi-Dose W/EPI 1/100,000 50 ML VIAL (17:36)
--- NOTE | 2024-03-20 19:50 | ED.GENADUL_ITS ---
Discharge Plan Disposition Patient Disposition: Home Condition: Stable Discharge Details Clinical Impression: Facial laceration Primary Care Provider: Yasmani Olivares ED Provider: Maci Melvin Home Meds and New Rx's Prescriptions: Continued pantoprazole 40 mg tablet,delayed release (DR/EC) 40 mg PO DAILY atorvastatin [Lipitor] 40 mg tablet 40 mg PO DAILY ibuprofen 600 MG tablet 600 mg PO Q6H Qty: 30 0RF metoprolol succinate [Toprol XL] 50 mg tablet extended release 24 hr 50 mg PO DAILY lisinopril 20 mg tablet 20 mg PO DAILY metoprolol succinate 25 mg tablet extended release 24 hr 25 mg PO QHS apixaban 5 mg tablet 5 mg PO BID Qty: 60 0RF Discharge Instructions Instructions: Laceration Repair With Stitches ED Additional Instructions: Keep wound clean and dry apply bacitracin or Neosporin once a day Suture removal in 7 days Tylenol as needed for pain Please return with spreading redness, fever, worsening pain, vomiting, or should you develop headache Referrals: Yasmani Olivares [Primary Care Provider] - Discharge Data Discharge Date/Time-TO BE ENTERED AT DEPARTURE: 03/20/24 18:09 HPI General Date/Time Provider Initiated Documentation: 03/20/24 15:11 . HPI Narrative: 63-year-old male presents with report of walking into the corner of a chair. He denies any additional injuries or loss of consciousness. He is anticoagulated on Eliquis for history of atrial fibrillation he denies any headache, loss of consciousness, dizziness, or weakness. He states his tetanus is up-to-date. Denies strength or sensation or vision change. Event occurred approximately 4 hours prior to arrival. Related Data Home Medications ?Medication ?Instructions ?Recorded ?Confirmed ibuprofen 600 mg tablet 600 mg PO Q6H #30 tabs 08/30/17 03/20/24 apixaban 5 mg tablet 5 mg PO BID Atrial fibrillation 03/22/19 03/20/24 #60 tabs pantoprazole 40 mg tablet,delayed 40 mg PO DAILY 01/10/20 03/20/24 release atorvastatin 40 mg tablet (Lipitor) 40 mg PO DAILY 11/11/22 03/20/24 lisinopril 20 mg tablet 20 mg PO DAILY 07/22/23 03/20/24 metoprolol succinate 25 mg 25 mg PO QHS 11/10/23 03/20/24 tablet,extended release 24 hr metoprolol succinate 50 mg 50 mg PO DAILY 11/10/23 03/20/24 tablet,extended release 24 hr (Toprol XL) Previous Rx's ?Medication ?Instructions ?Recorded ibuprofen 600 mg tablet 600 mg PO Q6H #30 tabs 08/30/17 apixaban 5 mg tablet 5 mg PO BID Atrial fibrillation 03/22/19 #60 tabs Allergies Allergy/AdvReac Type Severity Reaction Status Date / Time amoxicillin Allergy Unknown Skin Rash Verified 03/20/24 15:09 Penicillins Allergy Unknown Skin Rash Verified 03/20/24 15:09 General Stated Complaint: Laceration ARIAN: 4 Exam Narrative Exam Narrative: Half-inch laceration noted to right eyebrow, pupil equal round reactive to light and accommodation, ambulatory with steady gait, cranial nerves II through XII intact, no cervical spine tenderness. GCS 15 Course Vital Signs Vital signs: Vital Signs Temperature 36.8 C 03/20/24 15:06 Pulse 85 03/20/24 15:06 Respiratory Rate 14 03/20/24 15:06 Blood Pressure 180/124 H 03/20/24 15:06 Pulse Oximetry 95 03/20/24 15:06 Temperature 36.8 C 03/20/24 15:06 Temperature Source Oral 03/20/24 15:06 Pulse 85 03/20/24 15:06 Respiratory Rate 14 03/20/24 15:06 Blood Pressure 180/124 H 03/20/24 15:06 Blood Pressure Position Sitting 03/20/24 15:06 Pulse Oximetry 95 03/20/24 15:06 Oxygen Delivery Method Room Air 03/20/24 15:06 Oxygen Flow Rate 0 03/20/24 15:06 Pain Level 2 03/20/24 15:06 Procedure Laceration Laceration 1: Date of Procedure: 03/20/24 Time of procedure: 19:52 Provider that performed the procedure: Maci Lopez Time Out Performed: Yes Patient Consented: Verbally Site: face Side (If applicable): right Description: linear Depth: simple, single layer Local anesthetic: Lidocaine 1% and with Epi Amount of anesthesia used (mL): 5 Pre-repair:: wound explored and irrigated extensively Skin layer closed with: nylon Size (cm): 6-0 Number of sutures:: 4 Technique: simple, interrupted Medical Decision Making 4 sutures placed without incidence this patient with head injury just prior to arrival. Patient is anticoagulated on Eliquis, however his mechanism of injury was relatively low impact and I see no clear indication for CT imaging of patient's head at this time. We made joint decision making with the patient and he agrees to return immediately should he have change in symptoms at all. He is completely headache free, has been ambulatory since the event occurred and it occurred more than several hours prior to arrival. Tetanus is up-to-date. He tolerated suture placement without incident and will have the sutures removed in 7 days. Quality:SDOH Health Related Social Needs: No Data to Display [facility] All Active Problems (Updated 03/20/24 @ 17:52 by SAMINA Swift) Facial laceration (Acute) Sciatica (Acute) Traumatic hemo-pneumothorax (Acute) Medical History (Updated 03/20/24 @ 17:52 by SAMINA Swift) Smoker Hypomagnesemia Acute hypokalemia Elevated cholesterol Chronic GERD Lower back pain Atrial fibrillation Hypertension Retropharyngeal abscess Peritonsillar cellulitis Tonsillitis Adult supraglottitis Peritonsillar abscess Abscess of tonsil Surgical History (Updated 07/27/23 @ 12:58 by Alicia Clement) History of incision and drainage (~07/2023) perirectal abscess S/P skin cancer resection Melanoma x 3 S/P right knee arthroscopy S/P ablation of atrial fibrillation Family History Father Stroke Cancer prostate Brother Diabetes Hypertension Brother Cancer bone cancer Social History Smoking/Tobacco Use Status: Current every day Tobacco Type: cigarettes Smoking packs per day: 0.5 Smoking cigarettes per day: 10.0 Tobacco: How many years used: 30 Quit status: has quit before Counseling given: provider counseling, support medications and counseling >3 minutes Smoking risk assessment performed?: Yes Alcohol Intake: current Alcohol Intake frequency: 0-2 drinks per day Alcohol type: hard liquor Drug use: Never Substance use type: does not use Household members: significant other Housing: house 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
== END 2024-03-20 18:09 | disposition home or self-care (01) ==
PROVIDERS: Emergency Provider Physician Assistant; PCP Family Medicine
DX: S01.81XA Laceration without foreign body of other part of head, initial encounter (principal); W22.8XXA Striking against or struck by other objects, initial encounter
CPT/HCPCS: 12011; J2004

== ENCOUNTER 2024-03-27 09:03 | Emergency (ER) | payer BC, SELFPAY ==
[2024-03-27 09:09] VITALS: BP 160/82; PULSE 65; RESP 17; TEMP 36.6; O2SAT 98
--- NOTE | 2024-03-27 09:17 | ED.GENADUL_ITS ---
Discharge Plan Disposition Patient Disposition: Home Condition: Stable Discharge Details Clinical Impression: Visit for suture removal Primary Care Provider: Yasmani Olivares ED Provider: Royal Barone [place] Meds and New Rx's Prescriptions: Continued pantoprazole 40 mg tablet,delayed release (DR/EC) 40 mg PO DAILY ibuprofen 600 MG tablet 600 mg PO Q6H Qty: 30 0RF metoprolol succinate [Toprol XL] 50 mg tablet extended release 24 hr 50 mg PO DAILY metoprolol succinate 25 mg tablet extended release 24 hr 25 mg PO QHS apixaban 5 mg tablet 5 mg PO BID Qty: 60 0RF Discontinued atorvastatin [Lipitor] 40 mg tablet 40 mg PO DAILY lisinopril 20 mg tablet 20 mg PO DAILY Discharge Instructions Additional Instructions: The risk of infection is low at this point but if you do notice spreading redness on the face or severe pain at the area return to the emergency department for reevaluation. Otherwise follow-up with your primary care provider as needed. HPI General Mode of arrival: ambulatory . Date/Time Provider Initiated Documentation: 03/27/24 09:17 . Limitations to Documentation: no limitations . Information obtained by: patient . History of Present Illness 63 year old M presents to the emergency department with the chief complaint of suture removal, described as mild, and is localized to the face. Patient reports no radiation. Patient started experiencing this day(s) (7) No relieving factors improve symptom(s), No exacerbating factors reported . Patient notes no other symptoms.. Related Data Home Medications ?Medication ?Instructions ?Recorded ?Confirmed ibuprofen 600 mg tablet 600 mg PO Q6H #30 tabs 08/30/17 03/27/24 apixaban 5 mg tablet 5 mg PO BID Atrial fibrillation 03/22/19 03/27/24 #60 tabs pantoprazole 40 mg tablet,delayed 40 mg PO DAILY 01/10/20 03/27/24 release metoprolol succinate 25 mg 25 mg PO QHS 11/10/23 03/27/24 tablet,extended release 24 hr metoprolol succinate 50 mg 50 mg PO DAILY 11/10/23 03/27/24 tablet,extended release 24 hr (Toprol XL) Previous Rx's ?Medication ?Instructions ?Recorded ibuprofen 600 mg tablet 600 mg PO Q6H #30 tabs 08/30/17 apixaban 5 mg tablet 5 mg PO BID Atrial fibrillation 03/22/19 #60 tabs Allergies Allergy/AdvReac Type Severity Reaction Status Date / Time amoxicillin Allergy Unknown Skin Rash Verified 03/27/24 09:10 Penicillins Allergy Unknown Skin Rash Verified 03/27/24 09:10 General Stated Complaint: SutureRem ARIAN: 5 Review of Systems All systems reviewed & are unremarkable except as noted in HPI and below Constitutional Constitutional: Denies chills, Denies fever(s) and Denies weakness Cardiovascular Cardiovascular: Denies chest pain and Denies dyspnea Respiratory Respiratory: Denies dyspnea Gastrointestinal Gastrointestinal: Denies vomiting Integumentary/Breasts Skin/Breast: Denies rash Neurologic Neurologic: Denies weakness Exam Const General: no acute distress Orientation: alert HENMT Head: normocephalic Ears: external ears normal General nose exam: external nose normal Mouth: moist mucous membranes Eyes General: appearance normal, both eyes and all related structures Neck Neck: normal visual inspection Resp Effort & Inspection: normal respiratory effort and able to speak in complete sentences Cardio Rate: regular rate Skin General skin exam: no rashes or lesions noted Neuro General: patient alert and patient oriented x3 Extrem General: normal to inspection Psych Mental Status: mental status grossly normal Medical Decision Making Patient here for suture removal. He had been placed last Wednesday over his right eyebrow. The wound is well-healed without any signs of infection. Nursing already remove the sutures, no further intervention needed. Patient will follow-up with his primary care provider as needed return if any signs of infection develop. Quality:SDOH Health Related Social Needs: No Data to Display PFSH All Active Problems (Updated 03/27/24 @ 09:17 by Royal Barone MD) Visit for suture removal (Acute) Facial laceration (Acute) Sciatica (Acute) Traumatic hemo-pneumothorax (Acute) Medical History (Updated 03/27/24 @ 09:17 by Royal Barone MD) Smoker Hypomagnesemia Acute hypokalemia Elevated cholesterol Chronic GERD Lower back pain Atrial fibrillation Hypertension Retropharyngeal abscess Peritonsillar cellulitis Tonsillitis Adult supraglottitis Peritonsillar abscess Abscess of tonsil Surgical History (Updated 07/27/23 @ 12:58 by Alicia Clement) History of incision and drainage (~07/2023) perirectal abscess S/P skin cancer resection Melanoma x 3 S/P right knee arthroscopy S/P ablation of atrial fibrillation Family History Father Stroke Cancer prostate Brother Diabetes Hypertension Brother Cancer bone cancer Social History Smoking/Tobacco Use Status: Current every day Tobacco Type: cigarettes Smoking packs per day: 0.5 Smoking cigarettes per day: 10.0 Tobacco: How many years used: 30 Quit status: has quit before Counseling given: provider counseling, support medications and counseling >3 minutes Smoking risk assessment performed?: Yes Alcohol Intake: current Alcohol Intake frequency: 0-2 drinks per day Alcohol type: hard liquor Drug use: Never Substance use type: does not use Household members: significant other Housing: house 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
== END 2024-03-27 09:25 | disposition home or self-care (01) ==
LOC: ER 09:25
PROVIDERS: Emergency Provider Emergency Medicine; PCP Family Medicine
DX: Z48.02 Encounter for removal of sutures (principal)

== ENCOUNTER 2024-11-08 08:42 | Outpatient (CLI) | payer BC, SELFPAY ==
--- NOTE | 2024-11-08 08:30 | RT.EKG_ITS ---
APPROVED REPORT Exam: Resting ECG Reason for Exam: afib Patient Location: O HR:58 bpm ECG Measurements Heart Rate 58 AXIS FL 134 P -20 QRSd 113 QRS -3 QT 455 T -4 QTc 447 Conclusion Sinus rhythm...normal P axis, V-rate 50- 99 Left ventricular hypertrophy...multiple voltage criteria
== END 2024-11-08 08:43 | disposition home or self-care (01) ==
LOC: DI.CARD 08:42
PROVIDERS: PCP Family Medicine; Visit Provider Internal Medicine Cardiovascular Disease
DX: I48.91 Unspecified atrial fibrillation (principal); I51.7 Cardiomegaly
CPT/HCPCS: 93010

== ENCOUNTER 2025-02-23 07:38 | Emergency (ER) | payer BC, SELFPAY ==
[2025-02-23 07:48] VITALS: BP 148/104; PULSE 92; RESP 18; TEMP 36.9; O2SAT 98
--- NOTE | 2025-02-23 08:30 | DI.RAD_ITS ---
Exam(s) XR SHOULDER RT COMPLETE 2+V EXAM: XR SHOULDER RT COMPLETE 2+V CLINICAL HISTORY: pain. TECHNIQUE: 2D digital imaging was performed of the right shoulder. Four images were obtained. AP, Grashey, Y-view and axillary views were obtained. COMPARISON: CR RIGHT SHOULDER COMPLETE from 08/28/2017 FINDINGS: BONES: No acute fracture is present. No bony destructive lesion is seen. There are old healed right rib fracture deformities. JOINTS: No dislocation present. There are moderate degenerative changes seen at the acromioclavicular joint. The glenohumeral joint is well maintained. SOFT TISSUE: Normal. IMPRESSION: 1. Degenerative changes at the acromioclavicular joint. 2. No acute fracture or dislocation. DATA REPOSITORY: RADIATION DOSE DELIVERED:
--- NOTE | 2025-02-23 09:22 | W.ED.GENAD ---
Discharge Plan Disposition Patient Disposition: Home Condition: Stable Discharge Details Clinical Impression: Rotator cuff tear, Acute pain of right shoulder Primary Care Provider: Yasmani Olivares ED Provider: Darek Bullock Home Meds and New Rx's Prescriptions: Continued pantoprazole 40 mg tablet,delayed release (DR/EC) 40 mg PO DAILY ibuprofen 600 MG tablet 600 mg PO Q6H Qty: 30 0RF metoprolol succinate 25 mg tablet extended release 24 hr 25 mg PO DAILY apixaban 5 mg tablet 5 mg PO BID Qty: 60 0RF amlodipine-benazepril 10-40 mg capsule 1 cap PO DAILY Discharge Instructions Instructions: Shoulder Pain ED Additional Instructions: Rest your right arm. No lifting until cleared. Use sling over the next 1 to 2 weeks. Follow-up with orthopedics next week. Remove your arm from sling once a day to perform pendulum exercises as reviewed. Please follow-up with your primary care physician. Return to the emergency department immediately for any worsening or new concerning symptoms. Stand Alone Forms: Portal Information, Work Release Referrals: [facility] [Provider Group] ORTHOPAEDICS,[facility] [OTHER, Orthopaedic] Discharge Data Discharge Date/Time-TO BE ENTERED AT DEPARTURE: 02/23/25 09:57 HPI General Mode of arrival: ambulatory. Date/Time Provider Initiated Documentation: 02/23/25 08:23. Limitations to Documentation: no limitations. Information obtained by: patient. HPI Narrative: HISTORY OF PRESENT ILLNESS This is a 64-year-old male with a history of a previous tendon tear in the shoulder presenting with a right shoulder injury. He is accompanied by his . The patient initially injured his bicep in November while mowing the lawn with a large mower on hilly terrain, feeling a pull in his bicep and experiencing difficulty lifting his arm. The condition improved over time. A few weeks ago, he felt another pulling sensation in his bicep while operating a snowblower, which prevented him from extending his arm to perform tasks such as turning a bronson or steering a wheel. Yesterday, he reinjured his shoulder while moving a refrigerator with a sandra down a set of stairs, feeling a tearing sensation in his shoulder. Although he initially felt some relief, he experienced significant pain and loss of proposition player strength when he lifted his arm in the shower last night. He reports difficulty sleeping due to the pain and has been managing it with ibuprofen. He recalls a similar incident a few years ago when he tore a tendon in his shoulder, which was treated by Dr. Odom. Related Data Home Medications ?Medication ?Instructions ?Recorded ?Confirmed ibuprofen 600 mg tablet 600 mg PO Q6H #30 tabs 08/30/17 02/23/25 apixaban 5 mg tablet 5 mg PO BID Atrial fibrillation 03/22/19 02/23/25 #60 tabs pantoprazole 40 mg tablet,delayed 40 mg PO DAILY 01/10/20 02/23/25 release metoprolol succinate 25 mg 25 mg PO DAILY 11/08/24 02/23/25 tablet,extended release 24 hr amlodipine 10 mg-benazepril 40 mg 1 cap PO DAILY 02/23/25 02/23/25 capsule Previous Rx's ?Medication ?Instructions ?Recorded ibuprofen 600 mg tablet 600 mg PO Q6H #30 tabs 08/30/17 apixaban 5 mg tablet 5 mg PO BID Atrial fibrillation 03/22/19 #60 tabs Allergies Allergy/AdvReac Type Severity Reaction Status Date / Time amoxicillin Allergy Unknown Skin Rash Verified 02/23/25 07:54 Penicillins Allergy Unknown Skin Rash Verified 02/23/25 07:54 General Stated Complaint: Orthopedic ARIAN: 4 Review of Systems Musculoskeletal Musculoskeletal: Reports as per HPI Exam Const General: cooperative and no acute distress Resp Auscultation: clear to auscultation bilaterally, no rales, no rhonchi and no wheezes Cardio Rate: regular rate and not tachycardic Rhythm: regular rhythm Pulses: radial pulses present on the right 2+ Extrem General: no edema Course Vital Signs Vital signs: Vital Signs Temperature 36.9 C 02/23/25 07:48 Pulse 92 H 02/23/25 07:48 Respiratory Rate 18 02/23/25 07:48 Blood Pressure 148/104 H 02/23/25 07:48 Pulse Oximetry 98 02/23/25 07:48 Temperature 36.9 C 02/23/25 07:48 Temperature Source Oral 02/23/25 07:48 Pulse 92 H 02/23/25 07:48 Respiratory Rate 18 02/23/25 07:48 Blood Pressure 148/104 H 02/23/25 07:48 Blood Pressure Position Sitting 02/23/25 07:48 Pulse Oximetry 98 02/23/25 07:48 Oxygen Delivery Method Room Air 02/23/25 07:48 Oxygen Flow Rate 0 02/23/25 07:48 Pain Level 8 02/23/25 07:48 Medical Decision Making ASSESSMENT AND PLAN Initial Assessment: 64-year-old male with right shoulder injury, significant pain, and decreased proposition player strength after reinjuring shoulder while moving a refrigerator. Patient is neurovascular intact distally. Differential Diagnosis: - Rotator cuff injury - Proximal biceps tendon injury ED Course: - X-ray of right shoulder reviewed and interpreted by radiology:1. Degenerative changes at the acromioclavicular joint. 2. No acute fracture or dislocation. - I communicated with orthopedics, Dr. Lott, he will be happy to see the patient in follow-up. - Sling provided. Final Assessment: Right shoulder injury with potential rotator cuff and biceps tendon involvement. Clinical Impression: - Right shoulder injury - Potential rotator cuff injury - Possible biceps tendon injury Disposition: - Follow-Up: agriculture specialist referral. MRI if acute biceps rupture suspected. Physical therapy for rotator cuff injury. This document was written with the assistance of [employer]. The patient consented to its use. PFSH All Active Problems (Updated 02/23/25 @ 09:24 by Darek Bullock MD) Acute pain of right shoulder (Acute) Rotator cuff tear (Acute) Sciatica (Acute) Traumatic hemo-pneumothorax (Acute) Medical History (Updated 02/23/25 @ 09:24 by Darek Bullock MD) Smoker Hypomagnesemia Acute hypokalemia Elevated cholesterol Chronic GERD Lower back pain Atrial fibrillation Hypertension Retropharyngeal abscess Peritonsillar cellulitis Tonsillitis Adult supraglottitis Peritonsillar abscess Abscess of tonsil Surgical History (Updated 07/27/23 @ 12:58 by Alicia Clement CMA) History of incision and drainage (~07/2023) perirectal abscess S/P skin cancer resection Melanoma x 3 S/P right knee arthroscopy S/P ablation of atrial fibrillation Family History Father Stroke Cancer prostate Brother Diabetes Hypertension Brother Cancer bone cancer Social History Smoking/Tobacco Use Status: Current every day Tobacco Type: cigarettes Smoking packs per day: 0.5 Smoking cigarettes per day: 10.0 Tobacco: How many years used: 30 Quit status: has quit before Counseling given: provider counseling, support medications and counseling >3 minutes Smoking risk assessment performed?: Yes Alcohol Intake: current Alcohol Intake frequency: 0-2 drinks per day Alcohol type: hard liquor Drug use: Never Substance use type: does not use Household members: significant other Housing: house 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
--- NOTE | 2025-02-24 08:43 | NUR.NOTE ---
Access chart to print the demographic sheet for [facility] billing requisition. Nursing Note:
== END 2025-02-23 09:57 | disposition home or self-care (01) ==
PROVIDERS: Emergency Provider Student in an Organized Health Care Education/Training Program; PCP Family Medicine
DX: M75.101 Unspecified rotator cuff tear or rupture of right shoulder, not specified as traumatic; M25.511 Pain in right shoulder; X50.0XXA Overexertion from strenuous movement or load, initial encounter
CPT/HCPCS: 99283; 73030